=== PATIENT | female | born 1950 | race American Indian/Alaskan Native ===

== ENCOUNTER 2016-05-23 20:11 | Inpatient (IN) | payer MEDICAID ==
[~2016-05-23] VITALS: Ht 175.3 cm; Wt 68.0 kg
[~2016-05-23 20:11] MED LIST: ALBU0.63 NEB; ALBU1.25 NEB; ALBU8.5H3 INH; ALBUTEROL SULFATE NEB; ALPR0.254 PO; APIX5TAB PO; ASPI325T4 PO; BENZ100C PO; CARV12.52 PO; CETI10TA18 PO; DILT180C PO; DILT180C53 PO; DOCU-30 PO; FERR325T20 PO; FLUT1BLS INH; GABA100C8 PO; HYDR-3138 PO; HYDR-882 PO; IPRA3AMP NPPB; LEVO500T33 PO; LEVO750T26 PO; LIDO700A5 TD; LOPE2CAP PO; LORA-446 PO; LOSA25TA5 PO; MAGN250T8 PO; METH750T2 PO; METO50TA82 PO; MULT-750 PO; NICO1PAT5 TD; OMEP-110 PO; OXYC1TAB9 PO; PARO10TA24 PO; PRED5TAB PO; PROP50TA3 PO; THYROID MEDICATION PO; TRAM-28 PO; TRAM50TA2 PO; vit b
[2016-05-23] MEDS ORDERED: SODIUM CHLORIDE 0.9% 1,000ML IVBOLUS ONE (20:30)
[2016-05-23] MEDS ORDERED: DILTIAZEM 125 MG in DEXTROSE 5% 100 ML IV SCH (20:33)
[2016-05-23] MEDS ORDERED: DILTIAZEM 5 MG/ML, 5ML ONE (20:37)
[2016-05-23 20:45] LABS: HEMOGLOBIN 11.4 g/dL (11.7-16.4)
[2016-05-23 20:52] LABS: ASPARTATE AMINO TRANSFERASE 89 U/L (15-37); BLOOD UREA NITROGEN 10 mg/dL (7-18)
[2016-05-23 21:00] LABS: IS PT STATUS REG ER OR PRE ER? YES
[2016-05-23] MEDS ORDERED: ASPIRIN 81 MG TABLET CHEW PO ONE (21:00)
[2016-05-23] MEDS ORDERED: DILTIAZEM 5 MG/ML, 5ML IV ONE (21:00)
[2016-05-23] MEDS ORDERED: POTASSIUM CHLORIDE 20 MEQ TAB.ER.PRT ONE (21:27)
[2016-05-23] MEDS ORDERED: POTASSIUM CHLORIDE 40 MEQ in SODIUM CHLORIDE 0.9% 500 ML IV ONE (21:30)
[2016-05-23] MEDS ORDERED: POTASSIUM CHLORIDE 20 MEQ TAB.ER.PRT PO ONE (21:30)
[2016-05-23] MEDS ORDERED: PIPERACILLIN/TAZO/PMX 3.375GM 50 ML IVPB ONE (21:30)
[2016-05-23] MEDS ORDERED: PIPERACILLIN/TAZO/PMX 3.375GM 50 ML ONE (21:41)
[2016-05-23] MEDS ORDERED: HYDROcodone/APAP 7.5-325MG/15ML UDC ONE (22:47)
[2016-05-23] MEDS ORDERED: POTASSIUM CHLORIDE 20 MEQ, MVI ADULT 10 ML, FOLIC ACID 1 MG, MAGNESIUM SULFATE 1 GM in ... IV SCH (22:59)
[2016-05-23] MEDS ORDERED: ALUMINUM/MAG/SIMETHICONE 30 ML UDC PO PRN (23:00)
[2016-05-23] MEDS ORDERED: GUAIFENESIN/COD200MG-20MG/10ML LIQUID PO PRN (23:00)
[2016-05-23] MEDS ORDERED: DOCUSATE 100 MG CAPSULE PO PRN (23:00)
[2016-05-23] MEDS ORDERED: DIAZEPAM 5 MG/ML, 2ML IV ONE (23:00)
[2016-05-23 23:30] VITALS: BP 112/68
[2016-05-23] MEDS ORDERED: ALBUTEROL/IPRATROPIUM 2.5MG/0.5MG, 3 ML ONE (23:57)
[2016-05-24] MEDS: APIXABAN 5 MG TABLET PO SCH ×3 (00:33→20:59)
[2016-05-24] MEDS: GUAIFENESIN/DM 200-20MG, 10ML UDC PO PRN ×3 (00:33→20:58)
[2016-05-24] MEDS: PROPYLTHIOURACIL 50 MG TABLET PO SCH ×3 (00:33→20:59)
[2016-05-24 01:27] LABS: HEMOGLOBIN 11.7 g/dL (11.7-16.4)
[2016-05-24 01:40] LABS: ASPARTATE AMINO TRANSFERASE 133 U/L (15-37); BLOOD UREA NITROGEN 11 mg/dL (7-18)
[2016-05-24 01:52] LABS: DAU SCREEN DISCLAIMER
[2016-05-24] MEDS ORDERED: MAGNESIUM SULFATE PMX 2GM/50ML 50 ML IV ONE (02:30)
[2016-05-24] MEDS ORDERED: NS + 40MEQ KCL 1,000 ML IV ONE (02:30)
[2016-05-24] MEDS: methylPREDNISolone SOD SUCC 40 MG/ML IV SCH ×2 (03:05→16:04)
[2016-05-24] MEDS: PIPERACILLIN/TAZO/PMX 3.375GM 50 ML IV SCH ×4 (03:36→22:28)
[2016-05-24 05:14] VITALS: BP 142/89
[2016-05-24] MEDS: ALBUTEROL/IPRATROPIUM 2.5MG/0.5MG, 3 ML NPPB SCH ×5 (05:50→20:40)
[2016-05-24] MEDS: GABAPENTIN 100 MG CAPSULE PO SCH ×4 (06:00→20:59)
[2016-05-24 06:40] VITALS: BP 143/84
[2016-05-24] MEDS: OMEPRAZOLE 20 MG CAPSULE.DR PO SCH (08:34)
[2016-05-24] MEDS: CARVEDILOL 12.5 MG TABLET PO SCH ×2 (08:34→20:59)
[2016-05-24] MEDS: MULTIVITAMIN 1 TABLET PO SCH (08:34)
[2016-05-24] MEDS: CHLORDIAZEPOXIDE 25 MG CAPSULE PO SCH ×4 (08:38→20:59)
[2016-05-24] MEDS: FLUTICASONE/VILANTEROL 200-25MCG/INH INH SCH (09:00)
[2016-05-24 11:00] LABS: IS PT STATUS REG ER OR PRE ER? NO
[2016-05-24 14:32] VITALS: BP 142/80
[2016-05-24] MEDS: DIPHENHYDRAMINE 25 MG CAPSULE PO PRN (18:20)
[2016-05-24 18:55] VITALS: BP 151/99
[2016-05-24] MEDS: ACETAMINOPHEN 325 MG TABLET PO PRN (20:58)
[2016-05-24] MEDS ORDERED: DIPHENHYDRAMINE 25 MG CAPSULE PO ONE (22:30)
[2016-05-25 01:35] VITALS: BP 130/91
[2016-05-25] MEDS: PIPERACILLIN/TAZO/PMX 3.375GM 50 ML IV SCH ×4 (05:03→22:28)
[2016-05-25] MEDS: methylPREDNISolone SOD SUCC 40 MG/ML IV SCH ×3 (05:03→22:28)
[2016-05-25] MEDS: GABAPENTIN 100 MG CAPSULE PO SCH ×4 (05:03→20:01)
[2016-05-25 05:18] LABS: HEMOGLOBIN 11.8 g/dL (11.7-16.4)
[2016-05-25 05:36] LABS: ASPARTATE AMINO TRANSFERASE 71 U/L (15-37); BLOOD UREA NITROGEN 17 mg/dL (7-18)
[2016-05-25] MEDS: ALBUTEROL/IPRATROPIUM 2.5MG/0.5MG, 3 ML NPPB SCH ×4 (07:10→19:27)
[2016-05-25] MEDS: OMEPRAZOLE 20 MG CAPSULE.DR PO SCH (07:39)
[2016-05-25] MEDS: APIXABAN 5 MG TABLET PO SCH ×2 (07:39→20:01)
[2016-05-25] MEDS: FLUTICASONE/VILANTEROL 200-25MCG/INH INH SCH (07:39)
[2016-05-25] MEDS: DIPHENHYDRAMINE 25 MG CAPSULE PO PRN ×2 (07:40→16:20)
[2016-05-25] MEDS: PROPYLTHIOURACIL 50 MG TABLET PO SCH ×2 (07:40→20:01)
[2016-05-25] MEDS: MULTIVITAMIN 1 TABLET PO SCH (07:40)
[2016-05-25] MEDS: CARVEDILOL 12.5 MG TABLET PO SCH ×2 (07:40→20:01)
[2016-05-25] MEDS: GUAIFENESIN/DM 200-20MG, 10ML UDC PO PRN ×2 (07:42→16:21)
[2016-05-25] MEDS: ACETAMINOPHEN 325 MG TABLET PO PRN ×2 (07:42→16:20)
[2016-05-25 08:03] VITALS: BP 135/103
[2016-05-25 12:02] VITALS: BP 145/95
[2016-05-25] MEDS ORDERED: DILTIAZEM 125 MG in SODIUM CHLORIDE 0.9% 100 ML IV PRN (12:30)
[2016-05-25 13:39] VITALS: BP 152/97
[2016-05-25] MEDS ORDERED: DEXTROSE 4 GM TAB.CHEW PO PRN (18:30)
[2016-05-25] MEDS ORDERED: DEXTROSE 50%, 50ML SYRINGE IVPush PRN (18:30)
[2016-05-25] MEDS ORDERED: GLUCAGON 1 MG IM PRN (18:30)
[2016-05-25] MEDS ORDERED: LOPERAMIDE 2 MG CAPSULE PO ONE (18:30)
[2016-05-25] MEDS ORDERED: LOPERAMIDE 2 MG CAPSULE PO PRN (18:30)
[2016-05-25 19:08] VITALS: BP 130/83
[2016-05-25] MEDS: SODIUM CHLORIDE FLUSH 10ML SYR IVF SCH (20:00)
[2016-05-25] MEDS: CHLORDIAZEPOXIDE 25 MG CAPSULE PO SCH (20:01)
[2016-05-25] MEDS: OXYcodone 5 MG/5 ML ORAL.SOL UDC PO PRN (20:30)
[2016-05-25] MEDS: INSULIN ASPART 100 UNITS/ML, PEN SQ-INSULIN SCH (20:31)
[2016-05-26] MEDS: DIPHENHYDRAMINE 25 MG CAPSULE PO PRN ×3 (01:20→22:53)
[2016-05-26 01:23] VITALS: BP 121/79
[2016-05-26] MEDS: PIPERACILLIN/TAZO/PMX 3.375GM 50 ML IV SCH ×4 (04:22→22:53)
[2016-05-26 05:11] LABS: HEMOGLOBIN 11.7 g/dL (11.7-16.4)
[2016-05-26 05:17] VITALS: BP 126/86
[2016-05-26 05:17] LABS: BLOOD UREA NITROGEN 20 mg/dL (7-18)
[2016-05-26 05:20] LABS: ASPARTATE AMINO TRANSFERASE 49 U/L (15-37)
[2016-05-26] MEDS ORDERED: DILTIAZEM 125 MG in SODIUM CHLORIDE 0.9% 100 ML IV PRN ×5 (05:30→12:30)
[2016-05-26] MEDS: GUAIFENESIN/DM 200-20MG, 10ML UDC PO PRN ×2 (05:49→12:03)
[2016-05-26] MEDS: methylPREDNISolone SOD SUCC 40 MG/ML IV SCH ×4 (05:50→22:53)
[2016-05-26] MEDS: CHLORDIAZEPOXIDE 25 MG CAPSULE PO SCH ×3 (05:50→16:29)
[2016-05-26] MEDS: GABAPENTIN 100 MG CAPSULE PO SCH ×2 (06:14→11:33)
[2016-05-26 07:10] VITALS: BP 119/74
[2016-05-26] MEDS: ALBUTEROL/IPRATROPIUM 2.5MG/0.5MG, 3 ML NPPB SCH ×4 (07:18→19:10)
[2016-05-26] MEDS: FLUTICASONE/VILANTEROL 200-25MCG/INH INH SCH (08:02)
[2016-05-26] MEDS: SODIUM CHLORIDE FLUSH 10ML SYR IVF SCH ×2 (08:02→20:12)
[2016-05-26] MEDS: INSULIN ASPART 100 UNITS/ML, PEN SQ-INSULIN SCH ×4 (08:02→20:11)
[2016-05-26] MEDS: OMEPRAZOLE 20 MG CAPSULE.DR PO SCH (08:03)
[2016-05-26] MEDS: CARVEDILOL 12.5 MG TABLET PO SCH (08:03)
[2016-05-26] MEDS: APIXABAN 5 MG TABLET PO SCH ×2 (08:03→20:12)
[2016-05-26] MEDS: MULTIVITAMIN 1 TABLET PO SCH (08:03)
[2016-05-26] MEDS: FOLIC ACID 1 MG TABLET PO SCH (08:03)
[2016-05-26] MEDS: PROPYLTHIOURACIL 50 MG TABLET PO SCH ×2 (08:07→20:12)
[2016-05-26] MEDS: THIAMINE 200 MG in SODIUM CHLORIDE 0.9% 50 ML IV SCH (09:22)
[2016-05-26 15:15] VITALS: BP 121/81
[2016-05-26] MEDS: DILTIAZEM 60 MG TABLET PO SCH ×2 (16:29→23:04)
[2016-05-26] MEDS: OXYcodone 5 MG/5 ML ORAL.SOL UDC PO PRN ×2 (16:32→22:53)
[2016-05-26 19:58] VITALS: BP 116/79
[2016-05-27 01:30] VITALS: BP 114/77
[2016-05-27] MEDS: DILTIAZEM 60 MG TABLET PO SCH ×4 (05:22→20:44)
[2016-05-27] MEDS: PIPERACILLIN/TAZO/PMX 3.375GM 50 ML IV SCH ×2 (05:23→10:56)
[2016-05-27] MEDS ORDERED: DILTIAZEM 125 MG in SODIUM CHLORIDE 0.9% 100 ML IV PRN (05:30)
[2016-05-27 06:16] LABS: HEMOGLOBIN 12.2 g/dL (11.7-16.4)
[2016-05-27 06:34] LABS: BLOOD UREA NITROGEN 19 mg/dL (7-18)
[2016-05-27 06:41] VITALS: BP 119/75
[2016-05-27] MEDS: ALBUTEROL/IPRATROPIUM 2.5MG/0.5MG, 3 ML NPPB SCH ×4 (07:15→20:16)
[2016-05-27] MEDS ORDERED: REGADENOSON 0.4 MG/5 ML SYRINGE ONE (07:50)
[2016-05-27] MEDS: FLUTICASONE/VILANTEROL 200-25MCG/INH INH SCH (08:04)
[2016-05-27] MEDS: PROPYLTHIOURACIL 50 MG TABLET PO SCH ×2 (08:05→20:44)
[2016-05-27] MEDS: INSULIN ASPART 100 UNITS/ML, PEN SQ-INSULIN SCH ×4 (08:05→20:45)
[2016-05-27] MEDS: MULTIVITAMIN 1 TABLET PO SCH (08:05)
[2016-05-27] MEDS: methylPREDNISolone SOD SUCC 40 MG/ML IV SCH ×2 (08:05→20:43)
[2016-05-27] MEDS: FOLIC ACID 1 MG TABLET PO SCH (08:05)
[2016-05-27] MEDS: APIXABAN 5 MG TABLET PO SCH ×2 (08:05→20:44)
[2016-05-27] MEDS: SODIUM CHLORIDE FLUSH 10ML SYR IVF SCH ×2 (08:06→20:43)
[2016-05-27] MEDS: THIAMINE 200 MG in SODIUM CHLORIDE 0.9% 50 ML IV SCH (08:58)
[2016-05-27] MEDS: OXYcodone 5 MG/5 ML ORAL.SOL UDC PO PRN ×2 (12:28→20:45)
[2016-05-27 13:13] VITALS: BP 112/75
[2016-05-27] MEDS: CEFDINIR 300 MG CAPSULE PO SCH (14:16)
[2016-05-27] MEDS: DIPHENHYDRAMINE 25 MG CAPSULE PO PRN ×2 (16:22→22:29)
[2016-05-27 19:50] VITALS: BP 114/69
[2016-05-28 01:42] VITALS: BP 122/79
[2016-05-28 05:23] LABS: BLOOD UREA NITROGEN 20 mg/dL (7-18)
[2016-05-28 05:25] LABS: HEMOGLOBIN 12.2 g/dL (11.7-16.4)
[2016-05-28] MEDS: ALBUTEROL/IPRATROPIUM 2.5MG/0.5MG, 3 ML NPPB SCH ×4 (06:00→21:00)
[2016-05-28] MEDS: DILTIAZEM 60 MG TABLET PO SCH ×3 (06:00→16:52)
[2016-05-28] MEDS: INSULIN ASPART 100 UNITS/ML, PEN SQ-INSULIN SCH ×4 (07:00→21:58)
[2016-05-28 07:34] VITALS: BP 137/86
[2016-05-28] MEDS ORDERED: REGADENOSON 0.4 MG/5 ML SYRINGE ONE (07:47)
[2016-05-28] MEDS: OXYcodone 5 MG/5 ML ORAL.SOL UDC PO PRN ×3 (08:13→20:26)
[2016-05-28] MEDS: PROPYLTHIOURACIL 50 MG TABLET PO SCH ×2 (10:57→20:26)
[2016-05-28] MEDS: CEFDINIR 300 MG CAPSULE PO SCH (10:57)
[2016-05-28] MEDS: FOLIC ACID 1 MG TABLET PO SCH (10:57)
[2016-05-28] MEDS: APIXABAN 5 MG TABLET PO SCH ×2 (10:57→20:25)
[2016-05-28] MEDS: MULTIVITAMIN 1 TABLET PO SCH (10:57)
[2016-05-28] MEDS: methylPREDNISolone SOD SUCC 40 MG/ML IV SCH ×2 (10:58→20:24)
[2016-05-28] MEDS: THIAMINE 200 MG in SODIUM CHLORIDE 0.9% 50 ML IV SCH (10:58)
[2016-05-28] MEDS: SODIUM CHLORIDE FLUSH 10ML SYR IVF SCH ×2 (10:58→20:24)
[2016-05-28] MEDS: DIPHENHYDRAMINE 25 MG CAPSULE PO PRN ×2 (11:06→20:26)
[2016-05-28] MEDS: FLUTICASONE/VILANTEROL 200-25MCG/INH INH SCH (12:13)
[2016-05-28 13:12] VITALS: BP 132/79
[2016-05-28 16:46] VITALS: BP 133/82
[2016-05-28 18:56] VITALS: BP 131/72
[2016-05-28] MEDS: DILTIAZEM 90 MG TABLET PO SCH (20:25)
[2016-05-28] MEDS: GUAIFENESIN/DM 200-20MG, 10ML UDC PO PRN (22:29)
[2016-05-29 01:40] VITALS: BP 131/71
[2016-05-29] MEDS: DIPHENHYDRAMINE 25 MG CAPSULE PO PRN ×3 (03:48→23:01)
[2016-05-29] MEDS: DILTIAZEM 90 MG TABLET PO SCH (05:43)
[2016-05-29] MEDS: OXYcodone 5 MG/5 ML ORAL.SOL UDC PO PRN ×3 (05:44→18:03)
[2016-05-29 05:51] LABS: BLOOD UREA NITROGEN 19 mg/dL (7-18)
[2016-05-29 05:54] LABS: HEMOGLOBIN 11.9 g/dL (11.7-16.4)
[2016-05-29] MEDS: ALBUTEROL/IPRATROPIUM 2.5MG/0.5MG, 3 ML NPPB SCH ×4 (06:00→21:00)
[2016-05-29 07:28] VITALS: BP 158/89
[2016-05-29] MEDS: INSULIN ASPART 100 UNITS/ML, PEN SQ-INSULIN SCH ×4 (08:38→21:02)
[2016-05-29] MEDS: SODIUM CHLORIDE FLUSH 10ML SYR IVF SCH ×2 (08:40→21:00)
[2016-05-29] MEDS: FLUTICASONE/VILANTEROL 200-25MCG/INH INH SCH (08:40)
[2016-05-29] MEDS: methylPREDNISolone SOD SUCC 40 MG/ML IV SCH (08:40)
[2016-05-29] MEDS: MULTIVITAMIN 1 TABLET PO SCH (08:42)
[2016-05-29] MEDS: PROPYLTHIOURACIL 50 MG TABLET PO SCH ×2 (08:42→21:01)
[2016-05-29] MEDS: CEFDINIR 300 MG CAPSULE PO SCH ×2 (08:43→11:27)
[2016-05-29] MEDS: APIXABAN 5 MG TABLET PO SCH ×2 (08:43→21:00)
[2016-05-29] MEDS: FOLIC ACID 1 MG TABLET PO SCH (08:43)
[2016-05-29] MEDS: THIAMINE 100MG TABLET PO SCH (09:27)
[2016-05-29] MEDS: METOPROLOL TARTRATE 25 MG TABLET PO SCH ×2 (09:27→21:01)
[2016-05-29 12:41] VITALS: BP 117/81
[2016-05-29 18:41] VITALS: BP 143/84
[2016-05-29] MEDS: GUAIFENESIN/DM 200-20MG, 10ML UDC PO PRN (21:02)
[2016-05-30 01:13] VITALS: BP 146/98
[2016-05-30] MEDS: OXYcodone 5 MG/5 ML ORAL.SOL UDC PO PRN ×2 (03:37→11:43)
[2016-05-30 06:25] LABS: HEMOGLOBIN 13.2 g/dL (11.7-16.4)
[2016-05-30 06:30] LABS: BLOOD UREA NITROGEN 18 mg/dL (7-18)
[2016-05-30 06:35] VITALS: BP 134/90
[2016-05-30] MEDS: DIPHENHYDRAMINE 25 MG CAPSULE PO PRN (06:40)
[2016-05-30] MEDS: INSULIN ASPART 100 UNITS/ML, PEN SQ-INSULIN SCH ×2 (07:00→11:00)
[2016-05-30 07:14] LABS: DIFF TOTAL CELLS COUNTED 100 CELL DIFF
[2016-05-30 07:30] LABS: VERIFY COUNTS? YES
[2016-05-30] MEDS: ALBUTEROL/IPRATROPIUM 2.5MG/0.5MG, 3 ML NPPB SCH ×3 (07:47→14:20)
[2016-05-30] MEDS: SODIUM CHLORIDE FLUSH 10ML SYR IVF SCH (09:20)
[2016-05-30] MEDS: FLUTICASONE/VILANTEROL 200-25MCG/INH INH SCH (09:20)
[2016-05-30] MEDS: MULTIVITAMIN 1 TABLET PO SCH (09:21)
[2016-05-30] MEDS: PROPYLTHIOURACIL 50 MG TABLET PO SCH (09:21)
[2016-05-30] MEDS: THIAMINE 100MG TABLET PO SCH (09:21)
[2016-05-30] MEDS: CEFDINIR 300 MG CAPSULE PO SCH (09:21)
[2016-05-30] MEDS: FOLIC ACID 1 MG TABLET PO SCH (09:22)
[2016-05-30] MEDS: METOPROLOL TARTRATE 25 MG TABLET PO SCH (09:22)
[2016-05-30] MEDS: APIXABAN 5 MG TABLET PO SCH (09:22)
[2016-05-30] MEDS ORDERED: ALBU1.25 NEB (13:03)
[2016-05-30] MEDS ORDERED: ALPR0.254 PO (13:03)
[2016-05-30] MEDS ORDERED: IPRA3AMP NPPB (13:03)
[2016-05-30] MEDS ORDERED: APIX5TAB PO (13:03)
[2016-05-30] MEDS ORDERED: OXYC5SOL8 PO (13:03)
[2016-05-30] MEDS ORDERED: METO-99 PO (13:03)
[2016-05-30] MEDS ORDERED: THIA100T6 PO (13:03)
[2016-05-30] MEDS ORDERED: PROP50TA3 PO (13:03)
[2016-05-30] MEDS ORDERED: FLUT1BLS INH (13:03)
[2016-05-30] MEDS ORDERED: PRED10TA PO (13:03)
[2016-05-30] MEDS ORDERED: GUAI5SYR PO (13:03)
[2016-05-30] MEDS ORDERED: FOLI-17 PO (13:03)
[2016-05-30 13:22] VITALS: BP 119/79
[2016-05-30] MEDS ORDERED: METOPROLOL TARTRATE 100 MG TABLET PO SCH (21:00)
== END 2016-05-30 15:45 | disposition home or self-care (01) | DRG 896 ==
LOC: ED 22:09 → EDIP 22:20 → 4WST 22:31
PROVIDERS: ADMIT Internal Medicine; ATTEND Internal Medicine
DX: F10.239 Alcohol dependence with withdrawal, unspecified (principal); J18.9 Pneumonia, unspecified organism; J44.0 Chronic obstructive pulmonary disease with (acute) lower respiratory infection; J44.1 Chronic obstructive pulmonary disease with (acute) exacerbation; D68.69 Other thrombophilia; I48.2 Chronic atrial fibrillation; F10.229 Alcohol dependence with intoxication, unspecified; F14.23 Cocaine dependence with withdrawal; E87.6 Hypokalemia; I11.0 Hypertensive heart disease with heart failure; I50.9 Heart failure, unspecified; K52.9 Noninfective gastroenteritis and colitis, unspecified; E05.90 Thyrotoxicosis, unspecified without thyrotoxic crisis or storm; F17.210 Nicotine dependence, cigarettes, uncomplicated; K70.10 Alcoholic hepatitis without ascites; M79.1 Myalgia; Y90.8 Blood alcohol level of 240 mg/100 ml or more; Z79.01 Long term (current) use of anticoagulants; Z79.899 Other long term (current) drug therapy; Z91.19 Patient's noncompliance with other medical treatment and regimen
CPT/HCPCS: 36415; 71010; 78452; 80048; 80053; 80307; 82140; 82962; 83605; 83690; 83735; 84100; 84145; 84439; 84443; 84484; 85025; 85610; 85730; 87040; 87324; 93005; 94640; 96365; 96366; 96368; 96375; J1815; J2543; J2785; J3411; J7620; A9502; C9898; J2920; J3475; J3480; J7030; J7512; Q0163

== ENCOUNTER 2016-06-24 10:57 | Inpatient (IN) | payer OTHER, MEDICAID ==
[~2016-06-24] VITALS: Ht 175.3 cm; Wt 70.7 kg
[~2016-06-24 10:57] MED LIST changes: +FOLI-17 PO; +GUAI5SYR PO; +METO-99 PO; +OXYC5SOL8 PO; +PRED10TA PO; +THIA100T6 PO
[2016-06-24] MEDS ORDERED: SODIUM CHLORIDE FLUSH 10ML SYR IVF ONE (11:30)
[2016-06-24] MEDS ORDERED: ASPIRIN 81 MG TABLET CHEW PO ONE (11:30)
[2016-06-24] MEDS ORDERED: ASPIRIN 81 MG TABLET CHEW ONE (11:51)
[2016-06-24 12:22] LABS: ASPARTATE AMINO TRANSFERASE 23 U/L (15-37); BLOOD UREA NITROGEN 6 mg/dL (7-18)
[2016-06-24 12:23] LABS: IS PT STATUS REG ER OR PRE ER? YES
[2016-06-24] MEDS ORDERED: OXYcodone/APAP 10/325MG TABLET PO ONE (13:30)
[2016-06-24] MEDS ORDERED: POTASSIUM CHLORIDE 20 MEQ TAB.ER.PRT PO ONE ×2 (13:30→17:00)
[2016-06-24] MEDS ORDERED: OXYcodone/APAP 10/325MG TABLET ONE (13:48)
[2016-06-24] MEDS ORDERED: POTASSIUM CHLORIDE 20 MEQ TAB.ER.PRT ONE (13:48)
[2016-06-24] MEDS ORDERED: DILTIAZEM 5 MG/ML, 5ML ONE (15:32)
[2016-06-24] MEDS ORDERED: DILTIAZEM 125 MG in DEXTROSE 5% 100 ML IV SCH (15:49)
[2016-06-24] MEDS ORDERED: DILTIAZEM 5 MG/ML, 5ML IV ONE (16:00)
[2016-06-24] MEDS ORDERED: SODIUM CHLORIDE FLUSH 10ML SYR IVF PRN (16:30)
[2016-06-24] MEDS: SODIUM CHLORIDE 0.9% 1,000 ML IV SCH (17:20)
[2016-06-24] MEDS ORDERED: ONDANSETRON ODT 4 MG PO PRN (17:30)
[2016-06-24] MEDS ORDERED: HYDROcodone/APAP 5/325 TABLET PO PRN (17:30)
[2016-06-24] MEDS ORDERED: ALBUTEROL SULFATE 2.5 MG/3 ML NEB PRN ×2 (17:30→18:16)
[2016-06-24] MEDS ORDERED: LABETALOL 5MG/ML, 20ML IV PRN (17:30)
[2016-06-24] MEDS ORDERED: ONDANSETRON 2MG/ML, 2ML IVP PRN (17:30)
[2016-06-24] MEDS ORDERED: MAGNESIUM SULFATE PMX 2GM/50ML 50 ML IV ONE (17:30)
[2016-06-24] MEDS ORDERED: GUAIFENESIN/DM 100-10MG, 5ML UDC PO PRN (17:30)
[2016-06-24] MEDS ORDERED: POLYETHYLENE GLYCOL 17 GM PACKET PO PRN (17:30)
[2016-06-24] MEDS ORDERED: DILTIAZEM 125 MG in SODIUM CHLORIDE 0.9% 100 ML IV PRN ×2 (18:00→23:30)
[2016-06-24] MEDS ORDERED: ALBUTEROL/IPRATROPIUM 2.5MG/0.5MG, 3 ML ONE (18:31)
[2016-06-24 18:34] VITALS: BP 100/69
[2016-06-24 18:56] LABS: IS PT STATUS REG ER OR PRE ER? NO
[2016-06-24] MEDS ORDERED: METOPROLOL 1 MG/ML, 5ML IVPush PRN ×2 (19:00→19:48)
[2016-06-24 19:20] VITALS: BP 103/69
[2016-06-24 19:54] VITALS: BP 101/67
[2016-06-24] MEDS: METOPROLOL TARTRATE 100 MG TABLET PO SCH (19:56)
[2016-06-24] MEDS: OXYcodone 5 MG/5 ML ORAL.SOL UDC PO PRN (19:56)
[2016-06-24] MEDS: GABAPENTIN 100 MG CAPSULE PO SCH (19:57)
[2016-06-24] MEDS: APIXABAN 5 MG TABLET PO SCH (19:57)
[2016-06-24] MEDS: DOXYCYCLINE 100MG TABLET PO SCH (19:57)
[2016-06-24] MEDS: PROPYLTHIOURACIL 50 MG TABLET PO SCH (19:57)
[2016-06-24] MEDS ORDERED: METOPROLOL TARTRATE 100 MG TABLET PO SCH (21:00)
[2016-06-24] MEDS ORDERED: ALBUTEROL/IPRATROPIUM 2.5MG/0.5MG, 3 ML NPPB SCH (21:00)
[2016-06-24 23:47] LABS: IS PT STATUS REG ER OR PRE ER? NO
[2016-06-24 23:50] LABS: BLOOD UREA NITROGEN 8 mg/dL (7-18)
[2016-06-25 05:02] VITALS: BP 131/91
[2016-06-25 05:19] LABS: BLOOD UREA NITROGEN 6 mg/dL (7-18)
[2016-06-25 05:23] LABS: ASPARTATE AMINO TRANSFERASE 30 U/L (15-37)
[2016-06-25] MEDS: GABAPENTIN 100 MG CAPSULE PO SCH ×4 (05:50→20:28)
[2016-06-25] MEDS: SODIUM CHLORIDE 0.9% 1,000 ML IV SCH ×2 (05:50→20:34)
[2016-06-25 06:14] LABS: DAU SCREEN DISCLAIMER
[2016-06-25] MEDS: OXYcodone 5 MG/5 ML ORAL.SOL UDC PO PRN ×3 (06:18→20:26)
[2016-06-25] MEDS: GUAIFENESIN/DM 200-20MG, 10ML UDC PO PRN ×3 (06:30→20:27)
[2016-06-25] MEDS: SENNA/DOCUSATE TABLET PO SCH (09:00)
[2016-06-25 09:06] VITALS: BP 122/83
[2016-06-25] MEDS: FOLIC ACID 1 MG TABLET PO SCH (09:21)
[2016-06-25] MEDS: MULTIVITAMIN 1 TABLET PO SCH (09:21)
[2016-06-25] MEDS: PROPYLTHIOURACIL 50 MG TABLET PO SCH ×2 (09:21→20:29)
[2016-06-25] MEDS: DOXYCYCLINE 100MG TABLET PO SCH ×2 (09:21→20:29)
[2016-06-25] MEDS: THIAMINE 100MG TABLET PO SCH (09:21)
[2016-06-25] MEDS: METOPROLOL TARTRATE 100 MG TABLET PO SCH ×2 (09:21→20:28)
[2016-06-25] MEDS: APIXABAN 5 MG TABLET PO SCH ×2 (09:21→20:28)
[2016-06-25] MEDS: FLUTICASONE/VILANTEROL 200-25MCG/INH INH SCH (12:16)
[2016-06-25 13:06] VITALS: BP 112/79
[2016-06-25 19:09] VITALS: BP 103/68
[2016-06-26 04:00] VITALS: BP 105/71
[2016-06-26 06:02] LABS: BLOOD UREA NITROGEN 9 mg/dL (7-18)
[2016-06-26] MEDS: GABAPENTIN 100 MG CAPSULE PO SCH ×4 (06:33→21:42)
[2016-06-26] MEDS: OXYcodone 5 MG/5 ML ORAL.SOL UDC PO PRN ×3 (06:33→20:47)
[2016-06-26] MEDS: SODIUM CHLORIDE 0.9% 1,000 ML IV SCH (06:37)
[2016-06-26 08:27] VITALS: BP 101/67
[2016-06-26] MEDS ORDERED: POTASSIUM CHLORIDE 20 MEQ TAB.ER.PRT PO ONE (09:00)
[2016-06-26] MEDS: SENNA/DOCUSATE TABLET PO SCH (09:00)
[2016-06-26] MEDS: FLUTICASONE/VILANTEROL 200-25MCG/INH INH SCH (09:46)
[2016-06-26] MEDS: GUAIFENESIN/DM 200-20MG, 10ML UDC PO PRN ×2 (09:46→17:48)
[2016-06-26] MEDS: PROPYLTHIOURACIL 50 MG TABLET PO SCH ×2 (09:47→21:42)
[2016-06-26] MEDS: DOXYCYCLINE 100MG TABLET PO SCH ×2 (09:47→21:42)
[2016-06-26] MEDS: MULTIVITAMIN 1 TABLET PO SCH (09:47)
[2016-06-26] MEDS: FOLIC ACID 1 MG TABLET PO SCH (09:48)
[2016-06-26] MEDS: THIAMINE 100MG TABLET PO SCH (09:48)
[2016-06-26] MEDS: APIXABAN 5 MG TABLET PO SCH ×2 (09:48→21:43)
[2016-06-26] MEDS: METOPROLOL TARTRATE 100 MG TABLET PO SCH ×2 (09:48→21:00)
[2016-06-26] MEDS: CEFTRIAXONE PMX 1GM/50ML 50 ML IV SCH (11:31)
[2016-06-26 14:39] VITALS: BP 110/67
[2016-06-26] MEDS ORDERED: ERGOCALCIFEROL 50,000 UNIT CAPSULE PO SCH (17:00)
[2016-06-26 19:58] VITALS: BP_SYST 82; BP_SYST 89; BP_DIAS 51; BP_DIAS 57
[2016-06-26 21:31] VITALS: BP 104/56
[2016-06-27 00:36] VITALS: BP 101/70
[2016-06-27] MEDS: GUAIFENESIN/DM 200-20MG, 10ML UDC PO PRN ×2 (03:07→15:24)
[2016-06-27] MEDS: OXYcodone 5 MG/5 ML ORAL.SOL UDC PO PRN ×4 (03:07→21:20)
[2016-06-27 06:26] LABS: BLOOD UREA NITROGEN 9 mg/dL (7-18)
[2016-06-27] MEDS: GABAPENTIN 100 MG CAPSULE PO SCH ×4 (06:28→20:50)
[2016-06-27 06:55] VITALS: BP 132/82
[2016-06-27] MEDS: FLUTICASONE/VILANTEROL 200-25MCG/INH INH SCH (09:00)
[2016-06-27] MEDS: PROPYLTHIOURACIL 50 MG TABLET PO SCH ×2 (09:12→20:50)
[2016-06-27] MEDS: CEFTRIAXONE PMX 1GM/50ML 50 ML IV SCH (09:12)
[2016-06-27] MEDS: DOXYCYCLINE 100MG TABLET PO SCH ×2 (09:12→20:50)
[2016-06-27] MEDS: SENNA/DOCUSATE TABLET PO SCH (09:12)
[2016-06-27] MEDS: METOPROLOL TARTRATE 100 MG TABLET PO SCH ×2 (09:12→20:50)
[2016-06-27] MEDS: APIXABAN 5 MG TABLET PO SCH (09:12)
[2016-06-27] MEDS: MULTIVITAMIN 1 TABLET PO SCH (09:12)
[2016-06-27] MEDS: FOLIC ACID 1 MG TABLET PO SCH (09:13)
[2016-06-27] MEDS: THIAMINE 100MG TABLET PO SCH (09:13)
[2016-06-27 15:52] VITALS: BP 127/70
[2016-06-27] MEDS ORDERED: GUAIFENESIN ER 600 MG TABLET PO PRN (17:30)
[2016-06-27] MEDS: morphine SULFATE 10 MG/ML, 1ML IVPush PRN (19:30)
[2016-06-27] MEDS: ALBUTEROL/IPRATROPIUM 2.5MG/0.5MG, 3 ML NPPB PRN (19:40)
[2016-06-27 20:05] VITALS: BP 94/61
[2016-06-28 04:30] VITALS: BP 92/60
[2016-06-28] MEDS: OXYcodone 5 MG/5 ML ORAL.SOL UDC PO PRN ×3 (04:41→19:54)
[2016-06-28 05:09] LABS: BLOOD UREA NITROGEN 8 mg/dL (7-18)
[2016-06-28 05:13] LABS: ASPARTATE AMINO TRANSFERASE 9 U/L (15-37)
[2016-06-28] MEDS: GABAPENTIN 100 MG CAPSULE PO SCH ×4 (06:33→21:18)
[2016-06-28 07:11] VITALS: BP 100/67
[2016-06-28] MEDS: METOPROLOL TARTRATE 100 MG TABLET PO SCH ×2 (09:30→21:18)
[2016-06-28] MEDS: CEFTRIAXONE PMX 1GM/50ML 50 ML IV SCH (09:30)
[2016-06-28] MEDS ORDERED: ALBUTEROL/IPRATROPIUM 2.5MG/0.5MG, 3 ML IPPB PRN (09:30)
[2016-06-28] MEDS ORDERED: FLUTICASONE/VILANTEROL 200-25MCG/INH INH SCH (09:30)
[2016-06-28] MEDS: FOLIC ACID 1 MG TABLET PO SCH (09:30)
[2016-06-28] MEDS: MULTIVITAMIN 1 TABLET PO SCH (09:31)
[2016-06-28] MEDS: FLUTICASONE/VILANTEROL 200-25MCG/INH INH SCH (09:31)
[2016-06-28] MEDS: SENNA/DOCUSATE TABLET PO SCH (09:31)
[2016-06-28] MEDS: morphine SULFATE 10 MG/ML, 1ML IVPush PRN ×2 (09:31→17:27)
[2016-06-28] MEDS: THIAMINE 100MG TABLET PO SCH (09:31)
[2016-06-28] MEDS: DOXYCYCLINE 100MG TABLET PO SCH ×2 (09:31→21:18)
[2016-06-28] MEDS: PROPYLTHIOURACIL 50 MG TABLET PO SCH ×2 (09:33→21:19)
[2016-06-28] MEDS: predniSONE 50MG TABLET PO SCH (11:39)
[2016-06-28 13:31] LABS: CELLS COUNTED 1875; DILUTION 1; WBC SQUARES COUNTED 1
[2016-06-28 14:00] VITALS: BP 98/67
[2016-06-28] MEDS ORDERED: PHARMACOKINETIC MONITORING MC PRN (15:30)
[2016-06-28] MEDS ORDERED: PHARMACOKINETIC CONSULTATION MC ONE (15:30)
[2016-06-28] MEDS ORDERED: VANCOMYCIN PER PHARMACY MC PRN (15:30)
[2016-06-28] MEDS: VANCOMYCIN 1,300 MG in SODIUM CHLORIDE 0.9% 250 ML IV SCH (17:20)
[2016-06-28 20:06] VITALS: BP 102/63
[2016-06-28] MEDS: APIXABAN 5 MG TABLET PO SCH (21:18)
[2016-06-28] MEDS: DIPHENHYDRAMINE 25 MG CAPSULE PO PRN (22:24)
[2016-06-29 02:44] VITALS: BP 94/56
[2016-06-29] MEDS: OXYcodone 5 MG/5 ML ORAL.SOL UDC PO PRN ×2 (03:01→09:45)
[2016-06-29] MEDS: morphine SULFATE 10 MG/ML, 1ML IVPush PRN ×2 (05:40→21:29)
[2016-06-29] MEDS: VANCOMYCIN 1,300 MG in SODIUM CHLORIDE 0.9% 250 ML IV SCH (05:40)
[2016-06-29] MEDS: GABAPENTIN 100 MG CAPSULE PO SCH ×4 (05:40→21:03)
[2016-06-29 05:43] LABS: ASPARTATE AMINO TRANSFERASE 11 U/L (15-37); BLOOD UREA NITROGEN 12 mg/dL (7-18)
[2016-06-29 07:34] VITALS: BP 112/69
[2016-06-29] MEDS: THIAMINE 100MG TABLET PO SCH (09:45)
[2016-06-29] MEDS: predniSONE 50MG TABLET PO SCH (09:45)
[2016-06-29] MEDS: FOLIC ACID 1 MG TABLET PO SCH (09:45)
[2016-06-29] MEDS: CEFTRIAXONE PMX 1GM/50ML 50 ML IV SCH (09:45)
[2016-06-29] MEDS: APIXABAN 5 MG TABLET PO SCH ×2 (09:45→21:03)
[2016-06-29] MEDS: PROPYLTHIOURACIL 50 MG TABLET PO SCH ×2 (09:46→21:03)
[2016-06-29] MEDS: MULTIVITAMIN 1 TABLET PO SCH (09:46)
[2016-06-29] MEDS: METOPROLOL TARTRATE 100 MG TABLET PO SCH ×2 (09:46→21:03)
[2016-06-29] MEDS: DOXYCYCLINE 100MG TABLET PO SCH ×2 (09:46→21:03)
[2016-06-29] MEDS: SENNA/DOCUSATE TABLET PO SCH (09:46)
[2016-06-29] MEDS: FLUTICASONE/VILANTEROL 200-25MCG/INH INH SCH (09:46)
[2016-06-29] MEDS: ALBUTEROL/IPRATROPIUM 2.5MG/0.5MG, 3 ML NPPB PRN (10:00)
[2016-06-29 13:49] VITALS: BP 108/62
[2016-06-29] MEDS: OXYcodone IR 5MG TABLET PO PRN ×2 (14:09→18:36)
[2016-06-29 18:40] VITALS: BP 120/66
[2016-06-30 01:44] VITALS: BP 110/71
[2016-06-30] MEDS: OXYcodone IR 5MG TABLET PO PRN ×6 (02:29→23:51)
[2016-06-30] MEDS: GABAPENTIN 100 MG CAPSULE PO SCH ×4 (05:11→20:35)
[2016-06-30 05:53] LABS: ASPARTATE AMINO TRANSFERASE 11 U/L (15-37); BLOOD UREA NITROGEN 13 mg/dL (7-18)
[2016-06-30 07:46] VITALS: BP 131/75
[2016-06-30] MEDS: FLUTICASONE/VILANTEROL 200-25MCG/INH INH SCH (08:59)
[2016-06-30] MEDS: CEFTRIAXONE PMX 1GM/50ML 50 ML IV SCH (09:00)
[2016-06-30] MEDS: APIXABAN 5 MG TABLET PO SCH ×2 (09:00→20:35)
[2016-06-30] MEDS: predniSONE 50MG TABLET PO SCH (09:00)
[2016-06-30] MEDS: PROPYLTHIOURACIL 50 MG TABLET PO SCH ×2 (09:01→20:35)
[2016-06-30] MEDS: MULTIVITAMIN 1 TABLET PO SCH (09:01)
[2016-06-30] MEDS: FOLIC ACID 1 MG TABLET PO SCH (09:01)
[2016-06-30] MEDS: METOPROLOL TARTRATE 100 MG TABLET PO SCH ×2 (09:01→20:35)
[2016-06-30] MEDS: DOXYCYCLINE 100MG TABLET PO SCH ×2 (09:02→20:35)
[2016-06-30] MEDS: SENNA/DOCUSATE TABLET PO SCH (09:02)
[2016-06-30] MEDS: THIAMINE 100MG TABLET PO SCH (09:02)
[2016-06-30 12:33] VITALS: BP 112/72
[2016-06-30] MEDS: morphine SULFATE 10 MG/ML, 1ML IVPush PRN (13:20)
[2016-06-30 14:40] VITALS: BP 116/70
[2016-06-30 15:30] LABS: IS PT STATUS REG ER OR PRE ER? NO
[2016-06-30 18:53] VITALS: BP 93/63
[2016-06-30] MEDS: DIPHENHYDRAMINE 25 MG CAPSULE PO PRN (21:45)
[2016-07-01 00:55] VITALS: BP 107/66
[2016-07-01 05:21] LABS: IGG SUBCLASS 1 596 mg/dL (422-1292); IGG SUBCLASS 2 345 mg/dL (117-747); IGG SUBCLASS 3 231 mg/dL (41-129); IGG SUBCLASS 4 7 mg/dL (1-291); IMMUNOGLOBULIN G 1024 mg/dL (700-1600)
[2016-07-01 05:59] LABS: BLOOD UREA NITROGEN 14 mg/dL (7-18)
[2016-07-01] MEDS: OXYcodone IR 5MG TABLET PO PRN ×4 (06:15→20:19)
[2016-07-01] MEDS: GABAPENTIN 100 MG CAPSULE PO SCH ×4 (06:15→21:40)
[2016-07-01 07:24] VITALS: BP 126/76
[2016-07-01] MEDS: CEFTRIAXONE PMX 1GM/50ML 50 ML IV SCH (09:12)
[2016-07-01] MEDS: predniSONE 50MG TABLET PO SCH (09:13)
[2016-07-01] MEDS: FLUTICASONE/VILANTEROL 200-25MCG/INH INH SCH (09:13)
[2016-07-01] MEDS: APIXABAN 5 MG TABLET PO SCH ×2 (09:17→21:40)
[2016-07-01] MEDS: FOLIC ACID 1 MG TABLET PO SCH (09:17)
[2016-07-01] MEDS: DOXYCYCLINE 100MG TABLET PO SCH (09:18)
[2016-07-01] MEDS: THIAMINE 100MG TABLET PO SCH (09:18)
[2016-07-01] MEDS: MULTIVITAMIN 1 TABLET PO SCH (09:18)
[2016-07-01] MEDS: METOPROLOL TARTRATE 100 MG TABLET PO SCH ×2 (09:18→21:40)
[2016-07-01] MEDS: PROPYLTHIOURACIL 50 MG TABLET PO SCH ×2 (09:18→21:39)
[2016-07-01] MEDS: SENNA/DOCUSATE TABLET PO SCH (09:19)
[2016-07-01 13:15] VITALS: BP 109/67
[2016-07-01 19:20] VITALS: BP 109/73
[2016-07-01 21:37] VITALS: BP 111/65
[2016-07-02 00:31] VITALS: BP 111/70
[2016-07-02] MEDS: OXYcodone IR 5MG TABLET PO PRN ×3 (00:34→09:22)
[2016-07-02 04:57] LABS: BLOOD UREA NITROGEN 11 mg/dL (7-18)
[2016-07-02] MEDS: GABAPENTIN 100 MG CAPSULE PO SCH ×3 (05:26→16:44)
[2016-07-02 06:34] VITALS: BP 129/70
[2016-07-02] MEDS: PROPYLTHIOURACIL 50 MG TABLET PO SCH (09:16)
[2016-07-02] MEDS: FLUTICASONE/VILANTEROL 200-25MCG/INH INH SCH (09:16)
[2016-07-02] MEDS: MULTIVITAMIN 1 TABLET PO SCH (09:16)
[2016-07-02] MEDS: predniSONE 50MG TABLET PO SCH (09:16)
[2016-07-02] MEDS: APIXABAN 5 MG TABLET PO SCH (09:16)
[2016-07-02] MEDS: THIAMINE 100MG TABLET PO SCH (09:17)
[2016-07-02] MEDS: SENNA/DOCUSATE TABLET PO SCH (09:17)
[2016-07-02] MEDS: METOPROLOL TARTRATE 100 MG TABLET PO SCH (09:17)
[2016-07-02] MEDS: FOLIC ACID 1 MG TABLET PO SCH (09:17)
[2016-07-02 13:15] VITALS: BP 104/62
[2016-07-02] MEDS ORDERED: APIX5TAB PO (14:20)
[2016-07-02] MEDS ORDERED: PRED50TA PO (14:20)
[2016-07-02] MEDS ORDERED: ERGO500017 PO (14:20)
[2016-07-02 18:07] VITALS: BP 120/73
== END 2016-07-02 18:29 | DRG 308 ==
LOC: ED 13:43 → EDIP 16:02 → 5SO 18:04 → 4NOR 06-26 13:54
PROVIDERS: ADMIT Hospitalist; ATTEND Hospitalist
PROC: 0S9C3ZZ Drainage of Right Knee Joint, Percutaneous Approach (ICD-10-PCS; principal; 2016-06-28)
DX: I48.91 Unspecified atrial fibrillation (principal); E43 Unspecified severe protein-calorie malnutrition; J18.9 Pneumonia, unspecified organism; D68.69 Other thrombophilia; I50.32 Chronic diastolic (congestive) heart failure; J44.0 Chronic obstructive pulmonary disease with (acute) lower respiratory infection; J44.1 Chronic obstructive pulmonary disease with (acute) exacerbation; M17.11 Unilateral primary osteoarthritis, right knee; I48.92 Unspecified atrial flutter; K70.10 Alcoholic hepatitis without ascites; E87.6 Hypokalemia; E83.42 Hypomagnesemia; F17.210 Nicotine dependence, cigarettes, uncomplicated; E05.90 Thyrotoxicosis, unspecified without thyrotoxic crisis or storm; E87.5 Hyperkalemia; Z79.899 Other long term (current) drug therapy; Z79.01 Long term (current) use of anticoagulants; Z91.19 Patient's noncompliance with other medical treatment and regimen; F10.20 Alcohol dependence, uncomplicated; J45.909 Unspecified asthma, uncomplicated; K76.0 Fatty (change of) liver, not elsewhere classified; Z87.01 Personal history of pneumonia (recurrent); Z87.442 Personal history of urinary calculi; Z90.710 Acquired absence of both cervix and uterus; Z87.81 Personal history of (healed) traumatic fracture; E03.9 Hypothyroidism, unspecified; M11.261 Other chondrocalcinosis, right knee; Z68.23 Body mass index [BMI] 23.0-23.9, adult
CPT/HCPCS: 20611; 36415; 71010; 71020; 72072; 76700; 80048; 80053; 80061; 80307; 81003; 82040; 82306; 82728; 82784; 82787; 83735; 83970; 84100; 84145; 84439; 84443; 84484; 85025; 85610; 86480; 87040; 87070; 87205; 89051; 89060; 93005; 94640; 96365; 96366; 96376; J0696; J2405; J3370; J7620; J2270; J3475; J7030; J7050; J7512; Q0163

== ENCOUNTER 2016-10-18 13:06 | Emergency (ER) | payer MEDICAID ==
[~2016-10-18] VITALS: Ht 165.1 cm; Wt 73.0 kg
[~2016-10-18 13:06] MED LIST changes: -ALBU8.5H3 INH; +ALBU8.5H8 INH; +ASPI325T17 PO; -ASPI325T4 PO; +DOCU-131 PO; -DOCU-30 PO; +ERGO500017 PO; +FERR325T18 PO; -FERR325T20 PO; +GABA-826 PO; -GABA100C8 PO; -HYDR-3138 PO; +HYDR-3237 PO; -LEVO500T33 PO; +LEVO500T47 PO; +NICO1PAT16 TD; -NICO1PAT5 TD; -PARO10TA24 PO; +PARO10TA56 PO; +PRED50TA PO; -TRAM-28 PO; +TRAM-47 PO
[2016-10-18 13:08] VITALS: BP 145/76
[2016-10-18] MEDS ORDERED: DIAZEPAM 5 MG TABLET ONE (13:58)
[2016-10-18] MEDS ORDERED: HYDROcodone/APAP 5/325 TABLET ONE (13:58)
[2016-10-18] MEDS ORDERED: DIAZEPAM 5 MG TABLET PO ONE (14:00)
[2016-10-18] MEDS ORDERED: HYDROcodone/APAP 5/325 TABLET PO ONE (14:00)
== END 2016-10-18 15:02 | disposition home or self-care (01) ==
LOC: ED 14:51
DX: S39.012A Strain of muscle, fascia and tendon of lower back, initial encounter (principal); I50.9 Heart failure, unspecified; I11.0 Hypertensive heart disease with heart failure; E78.5 Hyperlipidemia, unspecified; I48.91 Unspecified atrial fibrillation; J44.9 Chronic obstructive pulmonary disease, unspecified; X58.XXXA Exposure to other specified factors, initial encounter; Y93.89 Activity, other specified; Y92.89 Other specified places as the place of occurrence of the external cause; Y99.8 Other external cause status
CPT/HCPCS: 99283

== ENCOUNTER 2017-02-07 20:39 | Emergency (ER) | payer MEDICAID, MEDICARE ==
[~2017-02-07] VITALS: Ht 170.2 cm; Wt 67.4 kg
[~2017-02-07 20:39] MED LIST changes: +NICO-487 TD; -NICO1PAT16 TD
[2017-02-07 20:57] VITALS: BP 142/75
== END 2017-02-07 22:25 | disposition home or self-care (01) ==
LOC: ED 22:23
DX: S71.112A Laceration without foreign body, left thigh, initial encounter (principal); F10.229 Alcohol dependence with intoxication, unspecified; J44.9 Chronic obstructive pulmonary disease, unspecified; E05.90 Thyrotoxicosis, unspecified without thyrotoxic crisis or storm; G89.29 Other chronic pain; W20.8XXA Other cause of strike by thrown, projected or falling object, initial encounter; Y93.89 Activity, other specified; Y92.89 Other specified places as the place of occurrence of the external cause; Y99.8 Other external cause status
CPT/HCPCS: 99283

== ENCOUNTER 2017-02-23 10:29 | Emergency (ER) | payer MEDICARE ==
[~2017-02-23] VITALS: Ht 167.6 cm; Wt 67.9 kg
[2017-02-23 10:31] VITALS: BP 158/79
[2017-02-23] MEDS ORDERED: DIAZEPAM 5 MG TABLET ONE (11:41)
[2017-02-23] MEDS ORDERED: DIAZEPAM 5 MG TABLET PO ONE (12:00)
== END 2017-02-23 13:52 | disposition home or self-care (01) ==
LOC: ED 13:10
DX: S39.012A Strain of muscle, fascia and tendon of lower back, initial encounter (principal); M51.36 Other intervertebral disc degeneration, lumbar region; I10 Essential (primary) hypertension; X58.XXXA Exposure to other specified factors, initial encounter; Y93.89 Activity, other specified; Y99.8 Other external cause status; Y92.89 Other specified places as the place of occurrence of the external cause
CPT/HCPCS: 72110; 99284

== ENCOUNTER 2017-11-08 00:03 | Emergency (ER) | payer MEDICARE ==
[~2017-11-08] VITALS: Ht 165.1 cm; Wt 70.1 kg
[~2017-11-08 00:03] MED LIST changes: -IPRA3AMP NPPB; +IPRA3AMP30 NPPB; -LOSA25TA5 PO; +LOSA25TA6 PO; +OXYC-432 PO; -OXYC1TAB9 PO; -THIA100T6 PO; +THIA100T67 PO
[2017-11-08 00:05] VITALS: BP 138/78
[2017-11-08] MEDS ORDERED: KETOROLAC 30 MG/1 ML IM ONE (00:30)
[2017-11-08] MEDS ORDERED: KETOROLAC 30 MG/1 ML ONE (00:38)
== END 2017-11-08 02:16 | disposition home or self-care (01) ==
LOC: ED 02:10
DX: S39.012A Strain of muscle, fascia and tendon of lower back, initial encounter (principal); I50.9 Heart failure, unspecified; I48.91 Unspecified atrial fibrillation; I11.0 Hypertensive heart disease with heart failure; J44.9 Chronic obstructive pulmonary disease, unspecified; Z90.710 Acquired absence of both cervix and uterus; F17.200 Nicotine dependence, unspecified, uncomplicated; W18.09XA Striking against other object with subsequent fall, initial encounter; Y93.01 Activity, walking, marching and hiking; Y92.098 Other place in other non-institutional residence as the place of occurrence of the external cause; Y99.8 Other external cause status
CPT/HCPCS: 72110; 96372; 99284; J1885

== ENCOUNTER 2018-01-09 06:41 | Emergency (ER) | payer MEDICARE ==
[~2018-01-09] VITALS: Ht 172.7 cm; Wt 69.8 kg
[~2018-01-09 06:41] MED LIST changes: +HYDR-3653 PO; -HYDR-882 PO
[2018-01-09] MEDS ORDERED: ACETAMINOPHEN 325 MG TABLET PO ONE (08:00)
[2018-01-09] MEDS ORDERED: ACETAMINOPHEN 325 MG TABLET ONE (08:00)
[2018-01-09 08:08] VITALS: BP 125/70
== END 2018-01-09 08:37 | disposition home or self-care (01) ==
LOC: ED 08:34
DX: J18.0 Bronchopneumonia, unspecified organism (principal); I48.91 Unspecified atrial fibrillation; J44.9 Chronic obstructive pulmonary disease, unspecified; I11.0 Hypertensive heart disease with heart failure; I50.9 Heart failure, unspecified; M54.9 Dorsalgia, unspecified; G89.29 Other chronic pain
CPT/HCPCS: 71046; 99284

== ENCOUNTER 2018-03-09 19:04 | Emergency (ER) | payer MEDICARE ==
[~2018-03-09] VITALS: Ht 172.7 cm; Wt 68.5 kg
[~2018-03-09 19:04] MED LIST changes: +LOSA25TA25 PO; -LOSA25TA6 PO
[2018-03-09 19:08] VITALS: BP 145/76
[2018-03-09] MEDS ORDERED: KETOROLAC 30 MG/1 ML ONE (19:50)
[2018-03-09] MEDS ORDERED: KETOROLAC 30 MG/1 ML IM ONE (20:00)
== END 2018-03-09 20:16 | disposition home or self-care (01) ==
LOC: ED 19:29
DX: M19.012 Primary osteoarthritis, left shoulder (principal); I11.0 Hypertensive heart disease with heart failure; I50.9 Heart failure, unspecified; J44.9 Chronic obstructive pulmonary disease, unspecified; E05.90 Thyrotoxicosis, unspecified without thyrotoxic crisis or storm; M48.00 Spinal stenosis, site unspecified; F17.200 Nicotine dependence, unspecified, uncomplicated; Z90.710 Acquired absence of both cervix and uterus
CPT/HCPCS: 73030; 96372; 99283; J1885

== ENCOUNTER 2019-02-28 05:01 | Emergency (ER) | payer MEDICARE, OTHER ==
[~2019-02-28] VITALS: Ht 172.7 cm; Wt 73.6 kg
[~2019-02-28 05:01] MED LIST changes: -DILT180C PO; +DILT180C76 PO
[2019-02-28 06:11] LABS: RAPID INFLUENZA A Negative (Negative); RAPID INFLUENZA B Negative (Negative)
--- NOTE | 2019-02-28 06:15 | NUR ---
PT TO RAD NOW
[2019-02-28 06:20] LABS: BASOPHILS % (AUTO) 0 % (0-1); EOSINOPHILS # (AUTO) 0.03 x10^3/uL (0-0.4); EOSINOPHILS % (AUTO) 0 % (1-7); LYMPHOCYTES # (AUTO) 0.66 x10^3/uL (1-3.4); LYMPHOCYTES % (AUTO) 9 % (22-44); MD NO; MEAN CORPUSCULAR HEMOGLOBIN 34.1 pg (27.0-34.8); MEAN CORPUSCULAR HGB CONC 34.3 g/dL (32.4-35.8); MEAN CORPUSCULAR VOLUME 99.3 fL (80-100); MEAN PLATELET VOLUME 9.7 fL (7.4-10.4); MONOCYTES # (AUTO) 0.42 x10^3/uL (0.2-0.8); MONOCYTES % (AUTO) 6 % (2-9); NEUTROPHILS # (AUTO) 6.54 x10^3/uL (1.8-6.8); NEUTROPHILS % (AUTO) 86 % (42-75); PLATELET COUNT 144 x10^3/uL (130-400); RED BLOOD COUNT 3.99 x10^6/uL (3.82-5.3); RED CELL DISTRIBUTION WIDTH 14.5 % (9.6-15.2)
[2019-02-28 06:28] LABS: ALBUMIN 3.7 g/dL (3.4-5.0); ANION GAP 8 mmol/L (5-15); CALCIUM 9.1 mg/dL (8.5-10.1); CHLORIDE 105 mmol/L (98-107)
[2019-02-28] MEDS ORDERED: ONDANSETRON ODT 4 MG PO ONE (06:30)
[2019-02-28 06:32] LABS: ALANINE AMINOTRANSFERASE 72 U/L (12-78); ALKALINE PHOSPHATASE 136 U/L (45-117); BILIRUBIN,TOTAL 1.6 mg/dL (0.2-1.0); CREATININE 0.49 mg/dL (0.55-1.02); TOTAL PROTEIN 8.2 g/dL (6.4-8.2)
[2019-02-28] MEDS ORDERED: ONDANSETRON ODT 4 MG ONE (06:39)
--- NOTE | 2019-02-28 06:48 | NUR ---
PT MEDICATED PER APR. UA OBTAINED AND WALKED TO LAB. PT DENIES FURTHER NEEDS AT THIS TIME.
[2019-02-28 07:07] LABS: MICROSCOPIC INDICATED
--- NOTE | 2019-02-28 07:13 | NUR ---
REPORT FROM CHACE GALE, PT RETURNED FROM CT. AWAITING CT AND LAB RESULTS. PT SLEEPING IN [facility] ON MONITOR, EQUAL CHEST RISE AND FALL
[2019-02-28 07:42] LABS: CULTURE INDICATED? YES
[2019-02-28] MEDS ORDERED: CEFTRIAXONE PMX 1GM/50ML 50 ML IVPB ONE (08:00)
[2019-02-28] MEDS ORDERED: SODIUM CHLORIDE FLUSH 10ML SYR IVF ONE (08:00)
[2019-02-28] MEDS ORDERED: MORPHINE SULFATE 4 MG/ML, 1ML IVPush PRN (08:00)
[2019-02-28] MEDS ORDERED: CEFTRIAXONE PMX 1GM/50ML 50 ML ONE (08:12)
[2019-02-28] MEDS ORDERED: MORPHINE SULFATE 4 MG/ML, 1ML ONE (08:13)
[2019-02-28 08:29] VITALS: BP 167/89
--- NOTE | 2019-02-28 08:31 | NUR ---
IV ESTABLISHED AND PT MEDICATED WITH MORPHINE, IV ABX STARTED. NO BC PER MD
--- NOTE | 2019-02-28 09:05 | NUR ---
report from thuy
--- NOTE | 2019-02-28 09:49 | NUR ---
Patient/Caregiver given discharge instructions and they have confirmed that they understand the instructions. Patient ambulatory with steady gait.
== END 2019-02-28 10:18 | disposition home or self-care (01) ==
LOC: ED 07:20
DX: J12.9 Viral pneumonia, unspecified (principal); N30.00 Acute cystitis without hematuria; J43.9 Emphysema, unspecified; I48.91 Unspecified atrial fibrillation; I11.0 Hypertensive heart disease with heart failure; I50.9 Heart failure, unspecified; M19.90 Unspecified osteoarthritis, unspecified site; Z90.710 Acquired absence of both cervix and uterus
CPT/HCPCS: 36415; 71046; 74176; 80053; 81001; 83690; 85025; 87077; 87086; 87186; 87400; 93005; 96365; 96375; 99284; J0696; J2270; Q0162

== ENCOUNTER 2019-03-12 21:23 | Inpatient (IN) | payer OTHER ==
[~2019-03-12] VITALS: Ht 172.7 cm; Wt 74.2 kg
--- NOTE | 2019-03-12 21:33 | NUR ---
Patient BIB [facility] c/o SOB, CP, congestion, N/V x3 days. Patient has a hx of asthma and states she usually uses an albuterol inhaler which helps when she gets SOB but ran out. Patient states she has also been nauseous for the last three days and the last time she vomited was yesterday am.
[2019-03-12] MEDS ORDERED: methylPREDNISolone SOD SUCC 125 MG/2 ML IVPush STA (22:45)
[2019-03-12] MEDS ORDERED: methylPREDNISolone SOD SUCC 125 MG/2 ML ONE (22:50)
[2019-03-12] MEDS ORDERED: KETOROLAC 30 MG/1 ML ONE (22:51)
[2019-03-12] MEDS ORDERED: ALBUTEROL/IPRATROPIUM 2.5MG/0.5MG, 3 ML NPPB ONE (23:00)
[2019-03-12] MEDS ORDERED: KETOROLAC 30 MG/1 ML IVPush ONE (23:00)
--- NOTE | 2019-03-12 23:27 | NUR ---
Medications admin per apr. Patient resting in [facility]. Lab in room.
[2019-03-12 23:37] LABS: BASOPHILS # (AUTO) 0.05 x10^3/uL (0-0.1); BASOPHILS % (AUTO) 2 % (0-1); EOSINOPHILS # (AUTO) 0.12 x10^3/uL (0-0.4); EOSINOPHILS % (AUTO) 4 % (1-7); LYMPHOCYTES # (AUTO) 1.13 x10^3/uL (1-3.4); LYMPHOCYTES % (AUTO) 37 % (22-44); MD NO; MEAN CORPUSCULAR HEMOGLOBIN 34.1 pg (27.0-34.8); MEAN CORPUSCULAR HGB CONC 34.1 g/dL (32.4-35.8); MEAN CORPUSCULAR VOLUME 99.9 fL (80-100); MEAN PLATELET VOLUME 9.5 fL (7.4-10.4); MONOCYTES # (AUTO) 0.28 x10^3/uL (0.2-0.8); MONOCYTES % (AUTO) 9 % (2-9); NEUTROPHILS % (AUTO) 49 % (42-75); PLATELET COUNT 150 x10^3/uL (130-400); RED BLOOD COUNT 3.65 x10^6/uL (3.82-5.3); RED CELL DISTRIBUTION WIDTH 14.4 % (9.6-15.2)
[2019-03-12] MEDS ORDERED: ALBUTEROL/IPRATROPIUM 2.5MG/0.5MG, 3 ML ONE (23:44)
[2019-03-12 23:49] LABS: ALANINE AMINOTRANSFERASE 71 U/L (12-78); ALBUMIN 3.3 g/dL (3.4-5.0); ANION GAP 12 mmol/L (5-15); CALCIUM 8.7 mg/dL (8.5-10.1); CHLORIDE 108 mmol/L (98-107); CREATININE 0.65 mg/dL (0.55-1.02)
[2019-03-12 23:54] LABS: ALKALINE PHOSPHATASE 147 U/L (45-117); BILIRUBIN,TOTAL 0.6 mg/dL (0.2-1.0); TOTAL PROTEIN 7.4 g/dL (6.4-8.2); TROPONIN I < 0.015 ng/mL (0.000-0.045)
[2019-03-13] VITALS (7 sets, daily range): BP systolic 137–194; BP diastolic 70–97
[2019-03-13] MEDS ORDERED: POTASSIUM CHLORIDE 20 MEQ TAB.ER.PRT ONE (00:19)
--- NOTE | 2019-03-13 00:25 | NUR ---
Patient states SOB is improved; feels tired. Resting comfortably in gurney.
[2019-03-13] MEDS ORDERED: POTASSIUM CHLORIDE 20 MEQ TAB.ER.PRT PO ONE ×2 (00:30→04:00)
[2019-03-13] MEDS ORDERED: CEFTRIAXONE PMX 1GM/50ML 50 ML ONE (00:59)
[2019-03-13] MEDS ORDERED: SODIUM CHLORIDE 0.9% 1,000ML IVBOLUS ONE (01:00)
[2019-03-13] MEDS ORDERED: AZITHROMYCIN 500 MG in SODIUM CHLORIDE 0.9% 250 ML IV ONE (01:00)
[2019-03-13] MEDS ORDERED: CEFTRIAXONE PMX 1GM/50ML 50 ML IV ONE (01:00)
--- NOTE | 2019-03-13 01:18 | NUR ---
MARIBEL RN: PT WITH [facility] PLUS INSURANCE. CARLOS CALLED, SPOKE TO [place] IN BED CONTROL/TRANSFER CENTER AND CARLOS DENIED PT TRANSFER. DISCUSSED WITH [employer] ZAMZAM FORMAN. BED REQUESTED FOR PT. ER ADMITTING NOTIFIED AND PSN FORM COMPLETED AND FAXED.
[2019-03-13] MEDS: methylPREDNISolone SOD SUCC 125 MG/2 ML IVPush SCH ×4 (04:33→23:17)
[2019-03-13] MEDS ORDERED: ALBUTEROL SULFATE 2.5 MG/3 ML NPPB PRN (05:00)
[2019-03-13] MEDS ORDERED: PROMETHAZINE 25 MG/ML, 1ML IM PRN (06:00)
[2019-03-13] MEDS ORDERED: ONDANSETRON 2MG/ML, 2ML IVPush PRN (06:00)
[2019-03-13] MEDS ORDERED: FUROSEMIDE 20 MG/2 ML IV ONE (06:00)
[2019-03-13] MEDS ORDERED: MAGNESIUM SULFATE PMX 2GM/50ML 50 ML IV ONE (08:00)
[2019-03-13] MEDS: ENOXAPARIN 40 MG/0.4 ML SQ SCH (08:10)
[2019-03-13 08:18] LABS: MEAN CORPUSCULAR HEMOGLOBIN 33.9 pg (27.0-34.8); MEAN CORPUSCULAR HGB CONC 33.3 g/dL (32.4-35.8); MEAN CORPUSCULAR VOLUME 101.8 fL (80-100); MEAN PLATELET VOLUME 10.3 fL (7.4-10.4); PLATELET COUNT 144 x10^3/uL (130-400); RED BLOOD COUNT 3.83 x10^6/uL (3.82-5.3)
[2019-03-13 08:27] LABS: ALANINE AMINOTRANSFERASE 76 U/L (12-78); ALBUMIN 3.5 g/dL (3.4-5.0); ANION GAP 13 mmol/L (5-15); CALCIUM 8.3 mg/dL (8.5-10.1); CHLORIDE 105 mmol/L (98-107); CREATININE 0.64 mg/dL (0.55-1.02)
[2019-03-13 08:29] LABS: ALKALINE PHOSPHATASE 160 U/L (45-117); BILIRUBIN,TOTAL 0.8 mg/dL (0.2-1.0); TOTAL PROTEIN 7.9 g/dL (6.4-8.2)
[2019-03-13 08:42] LABS: BASOPHILS # (AUTO) 0.01 x10^3/uL (0-0.1); BASOPHILS % (AUTO) 0 % (0-1); EOSINOPHILS % (AUTO) 0 % (1-7); LYMPHOCYTES # (AUTO) 0.26 x10^3/uL (1-3.4); LYMPHOCYTES % (AUTO) 13 % (22-44); MD MORPH REVIEW ONLY; MONOCYTES # (AUTO) 0.02 x10^3/uL (0.2-0.8); MONOCYTES % (AUTO) 1 % (2-9); NEUTROPHILS # (AUTO) 1.67 x10^3/uL (1.8-6.8); NEUTROPHILS % (AUTO) 86 % (42-75)
[2019-03-13 08:48] LABS: <PLATELET ESTIMATE> INCREASED; ANISOCYTOSIS 1+; LARGE PLATELETS 1+
[2019-03-13] MEDS: ACETAMINOPHEN 325 MG TABLET PO PRN ×3 (09:12→21:22)
[2019-03-13 10:32] LABS: MICROSCOPIC NOT IND
[2019-03-13 10:42] LABS: CULTURE INDICATED? NO
[2019-03-13 10:43] LABS: AMPHETAMINE SCREEN, URINE Negative (Negative); BARBITURATE SCREEN, URINE Negative (Negative); BENZODIAZEPINE SCREEN, URINE Negative (Negative); CANNABINOID SCREEN, URINE Negative (Negative); COCAINE SCREEN, URINE Negative (Negative); METHADONE SCREEN, URINE Negative (Negative); OPIATE SCREEN, URINE Negative (Negative)
[2019-03-13] MEDS ORDERED: OMNIPAQUE 350 MG/ML, 100ML BOTTLE ONE (11:28)
[2019-03-13 12:09] LABS: CLOSTRIDIUM DIFFICILE ANTIGEN POSITIVE; CLOSTRIDIUM DIFFICILE TOXIN NEGATIVE (Negative)
[2019-03-13 14:38] LABS: FREE T4 (FREE THYROXINE) 1.01 ng/dL (0.76-1.46)
[2019-03-13] MEDS: morphine SULFATE 10 MG/ML, 1ML IVPush PRN ×2 (17:16→21:23)
[2019-03-13] MEDS ORDERED: NITROGLYCERIN 0.4 MG BOTTLE (25 TABS) SL PRN (20:00)
[2019-03-14] VITALS (9 sets, daily range): BP systolic 142–183; BP diastolic 75–107
[2019-03-14] MEDS ORDERED: hydrALAzine 20 MG/ML, 1ML IV ONE (01:30)
[2019-03-14] MEDS: ACETAMINOPHEN 325 MG TABLET PO PRN ×3 (04:09→17:01)
[2019-03-14] MEDS: methylPREDNISolone SOD SUCC 125 MG/2 ML IVPush SCH ×3 (05:14→17:01)
[2019-03-14] MEDS: morphine SULFATE 10 MG/ML, 1ML IVPush PRN (07:16)
[2019-03-14] MEDS: ENOXAPARIN 40 MG/0.4 ML SQ SCH (07:42)
[2019-03-14] MEDS: THIAMINE 100MG TABLET PO SCH (09:00)
[2019-03-14 09:38] LABS: MEAN CORPUSCULAR HEMOGLOBIN 34.3 pg (27.0-34.8); MEAN CORPUSCULAR VOLUME 101.1 fL (80-100); PLATELET COUNT 147 x10^3/uL (130-400); RED CELL DISTRIBUTION WIDTH 14.7 % (9.6-15.2)
[2019-03-14 09:40] LABS: ALANINE AMINOTRANSFERASE 63 U/L (12-78); ALBUMIN 3.6 g/dL (3.4-5.0); ANION GAP 10 mmol/L (5-15); CALCIUM 8.5 mg/dL (8.5-10.1); CHLORIDE 102 mmol/L (98-107); CREATININE 0.58 mg/dL (0.55-1.02)
[2019-03-14 09:42] LABS: ALKALINE PHOSPHATASE 128 U/L (45-117); BILIRUBIN,TOTAL 1.8 mg/dL (0.2-1.0); TOTAL PROTEIN 8.2 g/dL (6.4-8.2)
[2019-03-14 10:11] LABS: MD MORPH REVIEW ONLY
[2019-03-14 10:12] LABS: BASOPHILS % (AUTO) 0 % (0-1); EOSINOPHILS % (AUTO) 0 % (1-7); LYMPHOCYTES # (AUTO) 0.17 x10^3/uL (1-3.4); LYMPHOCYTES % (AUTO) 3 % (22-44); MONOCYTES # (AUTO) 0.14 x10^3/uL (0.2-0.8); MONOCYTES % (AUTO) 3 % (2-9); NEUTROPHILS % (AUTO) 94 % (42-75)
[2019-03-14 10:13] LABS: TARGET CELLS 1+
[2019-03-14 10:14] LABS: <PLATELET ESTIMATE> ADEQUATE; <PLT MORPHOLOGY> NORMAL PLT MORPH; ANISOCYTOSIS 1+
[2019-03-14] MEDS: PROPYLTHIOURACIL 50 MG TABLET PO SCH ×2 (10:35→20:04)
[2019-03-14] MEDS: CEFTRIAXONE PMX 1GM/50ML 50 ML IV SCH (10:35)
[2019-03-14] MEDS: APIXABAN 5 MG TABLET PO SCH ×2 (10:35→20:04)
[2019-03-14] MEDS: DOXYCYCLINE 100 MG in DEXTROSE 5% 250 ML IV SCH ×2 (10:36→23:52)
[2019-03-14] MEDS ORDERED: POTASSIUM CHLORIDE 20 MEQ PACKET PO ONE (12:00)
[2019-03-15 01:00] VITALS: BP 144/83
[2019-03-15] MEDS: methylPREDNISolone SOD SUCC 125 MG/2 ML IVPush SCH ×3 (01:31→20:15)
[2019-03-15 08:43] VITALS: BP 156/89
[2019-03-15] MEDS: CEFTRIAXONE PMX 1GM/50ML 50 ML IV SCH (10:03)
[2019-03-15] MEDS: APIXABAN 5 MG TABLET PO SCH ×2 (10:04→20:16)
[2019-03-15] MEDS: PROPYLTHIOURACIL 50 MG TABLET PO SCH ×2 (10:04→20:15)
[2019-03-15] MEDS: THIAMINE 100MG TABLET PO SCH (10:04)
[2019-03-15] MEDS: DOXYCYCLINE 100 MG in DEXTROSE 5% 250 ML IV SCH ×2 (11:53→23:32)
[2019-03-15 13:20] VITALS: BP 175/106
[2019-03-15 14:11] VITALS: BP 153/90
[2019-03-15] MEDS: ENALAPRIL 5MG TABLET PO SCH (14:13)
[2019-03-15 19:32] VITALS: BP 157/76
[2019-03-16 00:46] VITALS: BP 160/87
[2019-03-16 08:07] VITALS: BP 147/87
[2019-03-16] MEDS: THIAMINE 100MG TABLET PO SCH (10:10)
[2019-03-16] MEDS: methylPREDNISolone SOD SUCC 125 MG/2 ML IVPush SCH (10:10)
[2019-03-16] MEDS: PROPYLTHIOURACIL 50 MG TABLET PO SCH (10:10)
[2019-03-16] MEDS: ENALAPRIL 5MG TABLET PO SCH (10:10)
[2019-03-16] MEDS: APIXABAN 5 MG TABLET PO SCH (10:10)
[2019-03-16] MEDS: CEFTRIAXONE PMX 1GM/50ML 50 ML IV SCH (10:19)
[2019-03-16] MEDS: DOXYCYCLINE 100 MG in DEXTROSE 5% 250 ML IV SCH (11:33)
[2019-03-16 13:16] VITALS: BP 172/87
[2019-03-16] MEDS ORDERED: FLU VACC QS2019-20 36MOS UP/PF 0.5 ML IM-VACC ONE (14:30)
[2019-03-16] MEDS ORDERED: PROP50TA3 PO (14:53)
[2019-03-16] MEDS ORDERED: DOXY100T PO (14:53)
[2019-03-16] MEDS ORDERED: PRED20TA PO (14:53)
[2019-03-16] MEDS ORDERED: APIX5TAB PO (14:53)
[2019-03-16] MEDS ORDERED: CEFD300C37 PO (14:53)
[2019-03-16] MEDS ORDERED: ENAL5TAB PO (14:53)
[2019-03-16] MEDS ORDERED: ENALAPRIL 5MG TABLET PO SCH (15:00)
== END 2019-03-16 16:20 | disposition home health service (06) | DRG 177 ==
LOC: ED 03-13 00:56 → EDIP 03-13 00:58 → 4WST 03-13 02:45
PROVIDERS: ADMIT Family Medicine; ATTEND Internal Medicine
DX: J15.6 Pneumonia due to other Gram-negative bacteria (principal); J96.01 Acute respiratory failure with hypoxia; E87.2 Acidosis; D68.59 Other primary thrombophilia; I50.30 Unspecified diastolic (congestive) heart failure; J18.9 Pneumonia, unspecified organism; D70.9 Neutropenia, unspecified; K80.20 Calculus of gallbladder without cholecystitis without obstruction; E05.90 Thyrotoxicosis, unspecified without thyrotoxic crisis or storm; E87.6 Hypokalemia; F09 Unspecified mental disorder due to known physiological condition; G89.29 Other chronic pain; I07.1 Rheumatic tricuspid insufficiency; I11.0 Hypertensive heart disease with heart failure; I27.20 Pulmonary hypertension, unspecified; I35.1 Nonrheumatic aortic (valve) insufficiency; I48.0 Paroxysmal atrial fibrillation; J43.9 Emphysema, unspecified; M19.90 Unspecified osteoarthritis, unspecified site; M48.00 Spinal stenosis, site unspecified; R73.9 Hyperglycemia, unspecified; Z23 Encounter for immunization; Z59.0 Homelessness; Z82.5 Family history of asthma and other chronic lower respiratory diseases; Z87.891 Personal history of nicotine dependence; Z90.710 Acquired absence of both cervix and uterus; Z79.899 Other long term (current) drug therapy
CPT/HCPCS: 36415; 71046; 71275; 74176; 80053; 80307; 81003; 82607; 83036; 83605; 83690; 83735; 83880; 84145; 84439; 84443; 84481; 84484; 85025; 87040; 87324; 87493; 90686; 93005; 93306; 94640; 96374; 96375; G0378; J0456; J0696; J1650; J1885; J7060; J7613; J7620; Q9967; 92523-GN; J0360; J1940; J2270; J2930; J3475; J7030; J7050

== ENCOUNTER 2019-06-03 16:30 | Inpatient (IN) | payer OTHER ==
[~2019-06-03] VITALS: Ht 172.7 cm; Wt 68.5 kg
[~2019-06-03 16:30] MED LIST changes: +ACET325T26 PO; +BUTA-177 PO; +CEFD300C37 PO; +DOXY100T PO; +ENAL5TAB PO; +LIDO700A20 TD; +LISI-167 PO; +PRED20TA PO
[2019-06-03] MEDS ORDERED: LORazepam 2 MG/ML, 1ML ONE (16:35)
[2019-06-03] MEDS ORDERED: DILTIAZEM 125 MG in SODIUM CHLORIDE 0.9% 100 ML IV SCH ×2 (16:40→19:30)
[2019-06-03] MEDS ORDERED: DILTIAZEM 5 MG/ML, 5ML ONE (16:58)
[2019-06-03] MEDS ORDERED: LORazepam 2 MG/ML, 1ML IVPush ONE (17:00)
[2019-06-03] MEDS ORDERED: DILTIAZEM 5 MG/ML, 5ML IV ONE (17:00)
[2019-06-03] MEDS ORDERED: SODIUM CHLORIDE FLUSH 10ML SYR IVF ONE (17:00)
--- NOTE | 2019-06-03 17:02 | NUR ---
MEMO DID EKG & ASSISTED W/ JAQUIID SWAB
--- NOTE | 2019-06-03 17:06 | NUR ---
HR 105 AFTER CARIZEM BOLUS GIVEN. PT BREATHING SLOWED DOWN AND LESS ANXIOUS. PT'S HANDS STILL HURT WITH CARPAL PEDAL SPASMS NOTED LEFT HAND
[2019-06-03 17:08] LABS: ALANINE AMINOTRANSFERASE 56 U/L (12-78); ALBUMIN 3.9 g/dL (3.4-5.0); ANION GAP 19 mmol/L (5-15); CALCIUM 7.8 mg/dL (8.5-10.1); CHLORIDE 97 mmol/L (98-107); CREATININE 0.76 mg/dL (0.55-1.02)
[2019-06-03 17:13] LABS: ALKALINE PHOSPHATASE 120 U/L (45-117); BILIRUBIN,TOTAL 2.2 mg/dL (0.2-1.0); T4 (THYROXINE) 11.1 mcg/dL (4.8-13.9); TOTAL PROTEIN 7.4 g/dL (6.4-8.2); TROPONIN I < 0.015 ng/mL (0.000-0.045)
[2019-06-03] MEDS ORDERED: NS + 40MEQ KCL 1,000 ML IV ONE (17:17)
[2019-06-03 17:26] LABS: MEAN CORPUSCULAR HEMOGLOBIN 34.4 pg (27.0-34.8); MEAN CORPUSCULAR HGB CONC 34.1 g/dL (32.4-35.8); MEAN CORPUSCULAR VOLUME 100.8 fL (80-100); RED BLOOD COUNT 3.83 x10^6/uL (3.82-5.3); RED CELL DISTRIBUTION WIDTH 16.2 % (9.6-15.2)
[2019-06-03] MEDS ORDERED: POTASSIUM CHLORIDE 20 MEQ TAB.ER.PRT ONE (17:26)
[2019-06-03] MEDS ORDERED: POTASSIUM CHLORIDE 20 MEQ TAB.ER.PRT PO ONE (17:30)
--- NOTE | 2019-06-03 17:32 | NUR ---
REPEAT EKG SHOWS NSR AT THIS TIME. CARDIZEM DRIP HELD FOR NOW. CONTINUES TO STRUGGLE WITH PAIN IN LEGS AND ARMS. MEDICATED FOR HYPOKALEMIA NOTED ON MAR
[2019-06-03 17:44] LABS: BASOPHILS # (AUTO) 0.02 x10^3/uL (0-0.1); BASOPHILS % (AUTO) 1 % (0-1); EOSINOPHILS % (AUTO) 0 % (1-7); LYMPHOCYTES # (AUTO) 0.52 x10^3/uL (1-3.4); LYMPHOCYTES % (AUTO) 15 % (22-44); MD MORPH REVIEW ONLY; MEAN PLATELET VOLUME 9.1 fL (7.4-10.4); MONOCYTES # (AUTO) 0.35 x10^3/uL (0.2-0.8); MONOCYTES % (AUTO) 10 % (2-9); NEUTROPHILS # (AUTO) 2.59 x10^3/uL (1.8-6.8); NEUTROPHILS % (AUTO) 74 % (42-75)
[2019-06-03 17:46] LABS: PLATELET COUNT 90 x10^3/uL (130-400)
[2019-06-03 17:47] LABS: <PLATELET ESTIMATE> DECREASED; ANISOCYTOSIS 1+; GIANT PLATELETS 1+; LARGE PLATELETS 1+
[2019-06-03] MEDS ORDERED: MORPHINE SULFATE 4 MG/ML, 1ML ONE (18:10)
[2019-06-03] MEDS ORDERED: ONDANSETRON 2MG/ML, 2ML ONE ×2 (18:10→22:55)
--- NOTE | 2019-06-03 18:25 | NUR ---
MEDICATED FOR PAIN EXTREMITIES. AWARE OF INTENTION TO ADMIT
[2019-06-03] MEDS ORDERED: ONDANSETRON 2MG/ML, 2ML IVPush ONE (18:30)
[2019-06-03] MEDS ORDERED: MORPHINE SULFATE 4 MG/ML, 1ML IVPush PRN (18:30)
--- NOTE | 2019-06-03 18:55 | NUR ---
REPORT TO JACI GALE
[2019-06-03] MEDS ORDERED: SODIUM CHLORIDE FLUSH 10ML SYR IVF PRN (19:00)
[2019-06-03] MEDS ORDERED: ONDANSETRON 2MG/ML, 2ML IVPush PRN (19:30)
--- NOTE | 2019-06-03 19:38 | NUR ---
TP RN: PT. WITH DETENTION + INSURANCE. SPOKE WITH GIDEON AT [facility]; PT. DECLINED BY BALJINDER MENESES CM.
[2019-06-03] MEDS ORDERED: ALBUTEROL HFA 90 MCG/SPRAY INH PRN (20:00)
[2019-06-03] MEDS ORDERED: AZITHROMYCIN 500 MG in SODIUM CHLORIDE 0.9% 250 ML IV SCH (20:00)
[2019-06-03 20:11] LABS: MICROSCOPIC INDICATED
[2019-06-03] MEDS: PROPYLTHIOURACIL 50 MG TABLET PO SCH (21:00)
--- NOTE | 2019-06-03 22:00 | NUR ---
Pt provided with food.
[2019-06-03] MEDS ORDERED: APIXABAN 5 MG TABLET ONE (22:11)
[2019-06-03] MEDS: APIXABAN 5 MG TABLET PO SCH (22:13)
--- NOTE | 2019-06-03 22:16 | NUR ---
Pt took PTU from home medications.
--- NOTE | 2019-06-03 23:03 | NUR ---
Pt placed on hospital bed, resting comfortably.
[2019-06-04] MEDS ORDERED: VENTOLIN INH PRN (01:00)
[2019-06-04 04:56] LABS: MEAN CORPUSCULAR HEMOGLOBIN 34.4 pg (27.0-34.8); MEAN CORPUSCULAR HGB CONC 34.1 g/dL (32.4-35.8); MEAN CORPUSCULAR VOLUME 101.1 fL (80-100); MEAN PLATELET VOLUME 9.4 fL (7.4-10.4); PLATELET COUNT 57 x10^3/uL (130-400); RED BLOOD COUNT 3.51 x10^6/uL (3.82-5.3); RED CELL DISTRIBUTION WIDTH 16.2 % (9.6-15.2)
[2019-06-04 05:04] LABS: ANION GAP 10 mmol/L (5-15); CALCIUM 7.5 mg/dL (8.5-10.1); CHLORIDE 102 mmol/L (98-107)
[2019-06-04 05:06] LABS: CREATININE 0.55 mg/dL (0.55-1.02)
[2019-06-04 05:42] LABS: <PLATELET ESTIMATE> DECREASED; BASOPHILS # (AUTO) 0.04 x10^3/uL (0-0.1); BASOPHILS % (AUTO) 1 % (0-1); EOSINOPHILS # (AUTO) 0.04 x10^3/uL (0-0.4); EOSINOPHILS % (AUTO) 1 % (1-7); LYMPHOCYTES # (AUTO) 0.89 x10^3/uL (1-3.4); LYMPHOCYTES % (AUTO) 25 % (22-44); MD MORPH REVIEW ONLY; MONOCYTES # (AUTO) 0.49 x10^3/uL (0.2-0.8); MONOCYTES % (AUTO) 14 % (2-9); NEUTROPHILS % (AUTO) 59 % (42-75)
[2019-06-04 05:43] LABS: GIANT PLATELETS 1+; LARGE PLATELETS 1+
[2019-06-04 05:57] LABS: ANISOCYTOSIS 1+
[2019-06-04 06:19] LABS: FREE T4 (FREE THYROXINE) 1.05 ng/dL (0.76-1.46)
--- NOTE | 2019-06-04 06:53 | NUR ---
I AM ASSUMING CARE OF THIS PT FROM DANII (RN) AT THIS TIME. SBAR REPORT WAS EXCHANGED AT THE BEDSIDE.
--- NOTE | 2019-06-04 08:16 | NUR ---
MEALTYRAY GIVEN AND APPRECIATED. PT SITTING AT THE BEDSIDE HAVING BREAKFST. VS ARE STABLE AND WDL. I WILL CONTINUE TO MONITOR AND TREAT ORDERED, WELL PRN.
[2019-06-04] MEDS ORDERED: ONDANSETRON 2MG/ML, 2ML ONE (08:28)
[2019-06-04] MEDS ORDERED: MORPHINE SULFATE 4 MG/ML, 1ML ONE (08:28)
[2019-06-04] MEDS: FOLIC ACID 1 MG TABLET PO SCH (08:58)
[2019-06-04] MEDS: PROPYLTHIOURACIL 50 MG TABLET PO SCH ×2 (08:58→21:13)
[2019-06-04] MEDS: DILTIAZEM CD 180 MG CAP.ER.24H PO SCH (08:58)
[2019-06-04] MEDS: APIXABAN 5 MG TABLET PO SCH ×2 (08:58→21:13)
[2019-06-04] MEDS ORDERED: LISINOPRIL 10 MG TABLET PO SCH (09:00)
[2019-06-04] MEDS ORDERED: BREO ELLIPTA INH SCH (09:00)
--- NOTE | 2019-06-04 10:01 | NUR ---
PT UP TO BEDSIDE COMMODE. ASSIST OF ONE.
[2019-06-04] MEDS: THIAMINE 100MG TABLET PO SCH (10:16)
--- NOTE | 2019-06-04 11:31 | NUR ---
pt resting on a hospital bed w no acute changes noted at this time. vs are stable, and wdl. we are awaiting a room assignment for admission.
--- NOTE | 2019-06-04 12:56 | NUR ---
verbal sbar exchanged ebony spicer (matt) on the floor for admission. we will begin to prepare for transport at this time.
[2019-06-04 14:35] VITALS: BP 129/90
[2019-06-04] MEDS ORDERED: OXYcodone IR 5MG TABLET PO ONE (18:00)
[2019-06-04] MEDS ORDERED: MAGNESIUM SULFATE PMX 2GM/50ML 50 ML IV ONE (18:00)
[2019-06-04] MEDS ORDERED: POTASSIUM CHLORIDE 40 MEQ in SODIUM CHLORIDE 0.9% 500 ML IV ONE (18:00)
[2019-06-04] MEDS: POTASSIUM CHLORIDE 20 MEQ TAB.ER.PRT PO SCH (18:11)
[2019-06-04 20:36] VITALS: BP 102/70
[2019-06-05 01:32] VITALS: BP 138/90
[2019-06-05 05:57] LABS: ALBUMIN 3.2 g/dL (3.4-5.0); ANION GAP 8 mmol/L (5-15); CALCIUM 7.1 mg/dL (8.5-10.1); CHLORIDE 109 mmol/L (98-107)
[2019-06-05 06:00] LABS: ALANINE AMINOTRANSFERASE 36 U/L (12-78); ALKALINE PHOSPHATASE 79 U/L (45-117); BILIRUBIN,TOTAL 1.5 mg/dL (0.2-1.0); CREATININE 0.54 mg/dL (0.55-1.02); TOTAL PROTEIN 6.2 g/dL (6.4-8.2)
[2019-06-05 06:03] LABS: MEAN CORPUSCULAR HGB CONC 34.3 g/dL (32.4-35.8); RED CELL DISTRIBUTION WIDTH 16.7 % (9.6-15.2)
[2019-06-05 06:45] LABS: MEAN PLATELET VOLUME 10.1 fL (7.4-10.4)
[2019-06-05 06:48] LABS: BASOPHILS # (AUTO) 0.04 x10^3/uL (0-0.1); BASOPHILS % (AUTO) 1 % (0-1); EOSINOPHILS # (AUTO) 0.13 x10^3/uL (0-0.4); EOSINOPHILS % (AUTO) 4 % (1-7); LYMPHOCYTES % (AUTO) 26 % (22-44); MD SCAN; MONOCYTES # (AUTO) 0.29 x10^3/uL (0.2-0.8); MONOCYTES % (AUTO) 10 % (2-9); NEUTROPHILS % (AUTO) 59 % (42-75)
[2019-06-05 06:49] LABS: PLATELET COUNT 58 x10^3/uL (130-400)
[2019-06-05] MEDS ORDERED: MAGNESIUM SULFATE PMX 2GM/50ML 50 ML IV ONE (07:00)
[2019-06-05 08:04] VITALS: BP 132/90
[2019-06-05] MEDS: POTASSIUM CHLORIDE 20 MEQ TAB.ER.PRT PO SCH ×2 (08:38→17:18)
[2019-06-05] MEDS: FOLIC ACID 1 MG TABLET PO SCH (08:38)
[2019-06-05] MEDS: THIAMINE 100MG TABLET PO SCH (08:39)
[2019-06-05] MEDS: MAGNESIUM OXIDE 400 MG TABLET PO SCH ×2 (08:39→19:33)
[2019-06-05] MEDS: APIXABAN 5 MG TABLET PO SCH ×2 (08:39→19:33)
[2019-06-05] MEDS: PROPYLTHIOURACIL 50 MG TABLET PO SCH ×2 (08:39→19:34)
[2019-06-05] MEDS: FLUTICASONE/VILANTEROL 200-25MCG/INH INH SCH (09:00)
[2019-06-05] MEDS: DILTIAZEM CD 180 MG CAP.ER.24H PO SCH (09:00)
[2019-06-05] MEDS: ACETAMINOPHEN 325 MG TABLET PO PRN (11:19)
[2019-06-05 13:10] VITALS: BP 132/85
[2019-06-05] MEDS: OXYcodone 5 MG/5 ML ORAL.SOL UDC PO PRN ×2 (14:04→19:35)
[2019-06-05] MEDS: LISINOPRIL 10 MG TABLET PO SCH (17:18)
[2019-06-05 19:53] VITALS: BP 148/63
[2019-06-06 03:45] VITALS: BP 146/85
[2019-06-06 05:13] LABS: MEAN CORPUSCULAR HEMOGLOBIN 34.7 pg (27.0-34.8); MEAN CORPUSCULAR HGB CONC 33.7 g/dL (32.4-35.8); MEAN CORPUSCULAR VOLUME 102.9 fL (80-100); MEAN PLATELET VOLUME 10.4 fL (7.4-10.4); PLATELET COUNT 61 x10^3/uL (130-400); RED CELL DISTRIBUTION WIDTH 16.6 % (9.6-15.2)
[2019-06-06 05:15] LABS: ALANINE AMINOTRANSFERASE 35 U/L (12-78); ALBUMIN 3.2 g/dL (3.4-5.0); ANION GAP 6 mmol/L (5-15); C-REACTIVE PROTEIN, QUANT 0.31 mg/dL (0.02-0.49); CHLORIDE 111 mmol/L (98-107); CREATININE 0.44 mg/dL (0.55-1.02)
[2019-06-06 05:20] LABS: ALKALINE PHOSPHATASE 82 U/L (45-117); BILIRUBIN,TOTAL 1.4 mg/dL (0.2-1.0); TOTAL PROTEIN 6.3 g/dL (6.4-8.2)
[2019-06-06 06:04] LABS: BASOPHILS # (AUTO) 0.05 x10^3/uL (0-0.1); BASOPHILS % (AUTO) 1 % (0-1); EOSINOPHILS # (AUTO) 0.13 x10^3/uL (0-0.4); EOSINOPHILS % (AUTO) 4 % (1-7); LYMPHOCYTES # (AUTO) 0.63 x10^3/uL (1-3.4); LYMPHOCYTES % (AUTO) 18 % (22-44); MD SCAN; MONOCYTES # (AUTO) 0.39 x10^3/uL (0.2-0.8); MONOCYTES % (AUTO) 11 % (2-9); NEUTROPHILS # (AUTO) 2.39 x10^3/uL (1.8-6.8); NEUTROPHILS % (AUTO) 67 % (42-75)
[2019-06-06 08:42] VITALS: BP 141/81
[2019-06-06] MEDS: POTASSIUM CHLORIDE 20 MEQ TAB.ER.PRT PO SCH ×2 (10:06→18:04)
[2019-06-06] MEDS: APIXABAN 5 MG TABLET PO SCH ×2 (10:06→20:25)
[2019-06-06] MEDS: FOLIC ACID 1 MG TABLET PO SCH (10:06)
[2019-06-06] MEDS: DILTIAZEM CD 180 MG CAP.ER.24H PO SCH (10:06)
[2019-06-06] MEDS: PROPYLTHIOURACIL 50 MG TABLET PO SCH ×2 (10:06→20:25)
[2019-06-06] MEDS: LISINOPRIL 10 MG TABLET PO SCH (10:06)
[2019-06-06] MEDS: THIAMINE 100MG TABLET PO SCH (10:06)
[2019-06-06] MEDS: MAGNESIUM OXIDE 400 MG TABLET PO SCH ×2 (10:07→20:25)
[2019-06-06] MEDS: OXYcodone 5 MG/5 ML ORAL.SOL UDC PO PRN ×3 (10:07→20:25)
[2019-06-06] MEDS: FLUTICASONE/VILANTEROL 200-25MCG/INH INH SCH (10:09)
[2019-06-06 13:28] VITALS: BP 172/95
[2019-06-06 13:41] VITALS: BP 137/77
[2019-06-06] MEDS ORDERED: LABETALOL 5MG/ML, 20ML IVPush PRN (15:30)
[2019-06-06 18:39] VITALS: BP 156/89
[2019-06-06] MEDS ORDERED: ALBUTEROL SULFATE 2.5 MG/3 ML ONE (23:48)
[2019-06-07] MEDS ORDERED: ALBUTEROL SULFATE 2.5 MG/3 ML NPPB PRN
[2019-06-07 00:11] VITALS: BP 162/90
[2019-06-07 05:59] LABS: ALBUMIN 3.4 g/dL (3.4-5.0); ANION GAP 6 mmol/L (5-15); CALCIUM 8.8 mg/dL (8.5-10.1); CHLORIDE 107 mmol/L (98-107)
[2019-06-07 06:02] LABS: ALANINE AMINOTRANSFERASE 36 U/L (12-78); ALKALINE PHOSPHATASE 87 U/L (45-117); BILIRUBIN,TOTAL 1.5 mg/dL (0.2-1.0); CREATININE 0.45 mg/dL (0.55-1.02); TOTAL PROTEIN 6.9 g/dL (6.4-8.2)
[2019-06-07 06:17] LABS: MEAN CORPUSCULAR HEMOGLOBIN 34.6 pg (27.0-34.8); MEAN CORPUSCULAR HGB CONC 33.4 g/dL (32.4-35.8); MEAN CORPUSCULAR VOLUME 103.4 fL (80-100); RED BLOOD COUNT 3.32 x10^6/uL (3.82-5.3); RED CELL DISTRIBUTION WIDTH 16.8 % (9.6-15.2)
[2019-06-07 06:57] LABS: BASOPHILS # (AUTO) 0.05 x10^3/uL (0-0.1); BASOPHILS % (AUTO) 1 % (0-1); EOSINOPHILS % (AUTO) 2 % (1-7); LYMPHOCYTES # (AUTO) 0.69 x10^3/uL (1-3.4); LYMPHOCYTES % (AUTO) 16 % (22-44); MD SCAN; MEAN PLATELET VOLUME 10.6 fL (7.4-10.4); MONOCYTES # (AUTO) 0.55 x10^3/uL (0.2-0.8); MONOCYTES % (AUTO) 12 % (2-9); NEUTROPHILS # (AUTO) 3.02 x10^3/uL (1.8-6.8); NEUTROPHILS % (AUTO) 69 % (42-75); PLATELET COUNT 76 x10^3/uL (130-400)
[2019-06-07] MEDS ORDERED: MAGNESIUM SULFATE PMX 2GM/50ML 50 ML IV ONE (07:30)
[2019-06-07 07:34] VITALS: BP 163/89
[2019-06-07] MEDS: POTASSIUM CHLORIDE 20 MEQ TAB.ER.PRT PO SCH (07:36)
[2019-06-07] MEDS: APIXABAN 5 MG TABLET PO SCH (07:36)
[2019-06-07] MEDS: DILTIAZEM CD 180 MG CAP.ER.24H PO SCH (07:36)
[2019-06-07] MEDS: THIAMINE 100MG TABLET PO SCH (07:36)
[2019-06-07] MEDS: PROPYLTHIOURACIL 50 MG TABLET PO SCH (07:36)
[2019-06-07] MEDS: MAGNESIUM OXIDE 400 MG TABLET PO SCH (07:36)
[2019-06-07] MEDS: OXYcodone 5 MG/5 ML ORAL.SOL UDC PO PRN (07:37)
[2019-06-07] MEDS: FOLIC ACID 1 MG TABLET PO SCH (07:37)
[2019-06-07] MEDS: FLUTICASONE/VILANTEROL 200-25MCG/INH INH SCH (09:00)
[2019-06-07] MEDS ORDERED: LISINOPRIL 20 MG TABLET PO SCH (09:00)
[2019-06-07] MEDS: ACETAMINOPHEN 325 MG TABLET PO PRN (09:32)
[2019-06-07] MEDS ORDERED: ALBU18HF INH (10:05)
[2019-06-07] MEDS ORDERED: DILT180C53 PO (10:05)
== END 2019-06-07 12:27 | disposition home or self-care (01) | DRG 191 ==
LOC: ED 17:15 → EDIP 18:52 → 3WST 06-04 14:00 → 4WST 06-06 17:57
PROVIDERS: ADMIT Internal Medicine; ATTEND Family Medicine
DX: J44.1 Chronic obstructive pulmonary disease with (acute) exacerbation (principal); I50.32 Chronic diastolic (congestive) heart failure; D61.818 Other pancytopenia; J98.11 Atelectasis; J96.11 Chronic respiratory failure with hypoxia; I48.0 Paroxysmal atrial fibrillation; G89.29 Other chronic pain; I11.0 Hypertensive heart disease with heart failure; E87.6 Hypokalemia; E05.90 Thyrotoxicosis, unspecified without thyrotoxic crisis or storm; Z79.01 Long term (current) use of anticoagulants; Z79.899 Other long term (current) drug therapy; Z82.5 Family history of asthma and other chronic lower respiratory diseases; Z90.710 Acquired absence of both cervix and uterus; Z87.891 Personal history of nicotine dependence; Z86.19 Personal history of other infectious and parasitic diseases; Z03.818 Encounter for observation for suspected exposure to other biological agents ruled out
CPT/HCPCS: 36415; 71045; 80048; 80053; 81001; 82728; 83605; 83615; 83735; 83880; 84145; 84436; 84439; 84443; 84481; 84484; 85025; 86140; 87040; 93005; 93306; 94640; 99285; G0378; J0456; J2405; J3480; J2060; J2270; J3475; J7040; J7050

== ENCOUNTER 2019-06-15 21:15 | Emergency (ER) | payer OTHER ==
[~2019-06-15] VITALS: Ht 172.7 cm; Wt 72.0 kg
[~2019-06-15 21:15] MED LIST changes: +ALBU18HF INH
--- NOTE | 2019-06-15 21:20 | NUR ---
THIS IS A 68Y F BIB EMS FOR FEELING SOB AND ETOH INTOXICATION. PT IS A/O X4 UPON ARRIVAL TO ER AND IS ON 2L NC. O2 SAT MAINTAINING ABOVE 95%. PT CONNECTED TO ALL MONITORING, VSS, NADN.
[2019-06-15] MEDS ORDERED: MAALOX/HYOSCYAMINE/LIDOCAINE 45 ML BTL PO ONE (21:30)
[2019-06-15] MEDS ORDERED: PLEASE ENTER ALLERGIES MC SCH (21:30)
[2019-06-15] MEDS ORDERED: ONDANSETRON ODT 8 MG PO ONE (21:30)
[2019-06-15] MEDS ORDERED: ONDANSETRON ODT 4 MG ONE (21:34)
[2019-06-15] MEDS ORDERED: MAALOX/HYOSCYAMINE/LIDOCAINE 45 ML BTL ONE (21:40)
[2019-06-15 22:04] LABS: MEAN CORPUSCULAR HEMOGLOBIN 33.8 pg (27.0-34.8); MEAN CORPUSCULAR HGB CONC 32.9 g/dL (32.4-35.8); MEAN CORPUSCULAR VOLUME 102.6 fL (80-100); MEAN PLATELET VOLUME 8.4 fL (7.4-10.4); PLATELET COUNT 277 x10^3/uL (130-400); RED BLOOD COUNT 3.66 x10^6/uL (3.82-5.3); RED CELL DISTRIBUTION WIDTH 15.6 % (9.6-15.2)
[2019-06-15 22:07] LABS: MD YES
[2019-06-15 22:10] LABS: ALANINE AMINOTRANSFERASE 47 U/L (12-78); ALBUMIN 3.6 g/dL (3.4-5.0); ANION GAP 9 mmol/L (5-15); CALCIUM 8.3 mg/dL (8.5-10.1); CHLORIDE 115 mmol/L (98-107); CREATININE 0.69 mg/dL (0.55-1.02)
[2019-06-15 22:14] LABS: ALKALINE PHOSPHATASE 110 U/L (45-117); BILIRUBIN,TOTAL 0.7 mg/dL (0.2-1.0); TOTAL PROTEIN 7.3 g/dL (6.4-8.2); TROPONIN I < 0.015 ng/mL (0.000-0.045)
[2019-06-15 22:15] LABS: BAND#(MANUAL) 0.03 x10^3/uL; BANDS%(MANUAL) 1 % (0-7); EOS% (MANUAL) 3 % (1-7); LYMPH#(MANUAL) 1.33 x10^3/uL (1-3.4); LYMPHS% (MANUAL) 39 % (22-44); MONOS#(MANUAL) 0.24 x10^3/uL (0.3-2.7); MONOS% (MANUAL) 7 % (2-9); MYELOCYTES# (MANUAL) 0.03 x10^3/uL (0-0); MYELOCYTES% (MANUAL) 1 % (0-0); REACTIVE LYMPHS % (MANUAL) 6 % (0-0); SEG#(MANUAL) 1.46 x10^3/uL (1.8-6.8); SEGS% (MANUAL) 43 % (42-75)
[2019-06-15 22:16] LABS: <PLATELET ESTIMATE> ADEQUATE; <PLT MORPHOLOGY> NORMAL PLT MORPH; <RBC MORPHOLOGY> NORMAL
[2019-06-15 23:17] VITALS: BP 111/71
--- NOTE | 2019-06-15 23:17 | NUR ---
pt resting on gurney, resp even and unlabored shaina
--- NOTE | 2019-06-16 01:41 | NUR ---
PT REMOVING MONITORING, STS SHE WANTS TO GO HOME TO HER DOG GRUMPY.
--- NOTE | 2019-06-16 02:10 | NUR ---
PT RESTING ON GURNEY NADN, PT STILL VERY DROWSY AT THIS TIME
--- NOTE | 2019-06-16 02:58 | NUR ---
PT AMBULATED WITH STEADY GAIT OUT OF ER. PT REFUSED CAB VOUCHER STS "I HAVE MONEY."
== END 2019-06-16 03:00 | disposition home or self-care (01) ==
LOC: MERGE 21:15 → EDBD 21:15 → ED 21:51
DX: K29.20 Alcoholic gastritis without bleeding (principal); K20.9 Esophagitis, unspecified; R07.9 Chest pain, unspecified; F10.10 Alcohol abuse, uncomplicated; Z72.9 Problem related to lifestyle, unspecified; I11.0 Hypertensive heart disease with heart failure; I50.9 Heart failure, unspecified; I48.91 Unspecified atrial fibrillation; J43.1 Panlobular emphysema; J43.9 Emphysema, unspecified; M19.90 Unspecified osteoarthritis, unspecified site; Z90.710 Acquired absence of both cervix and uterus; Z87.891 Personal history of nicotine dependence; Z86.39 Personal history of other endocrine, nutritional and metabolic disease; Y90.9 Presence of alcohol in blood, level not specified
CPT/HCPCS: 36415; 71045; 80053; 80307; 83690; 83880; 84484; 85025; 93005; 99285; Q0162

== ENCOUNTER 2019-06-28 19:01 | Emergency (ER) | payer OTHER ==
[~2019-06-28] VITALS: Ht 172.7 cm; Wt 63.6 kg
--- NOTE | 2019-06-28 19:20 | NUR ---
PT ARRIVED VIA [facility] FOR CP AND SOB THAT BEGAN THIS AFTERNOON. PT STATES THAT SHE HAS BEEN DRINKING AND THAT SHE DRANK "2-3 BEERS BUT DOESN'T REMEMBER". PT IS INTOXICATED. COMPLAINING OF L SIDED CP AND SOB. PT EUPNIC AND BREATHING UNLABORED. PT STATES HE CP STARTS ON THE L SIDE AND RADIATES ACROSS CHEST. PT HAS HX OF [place]. EKG DONE. PT CONNECTED TO GALLERY OR MUSEUM ATTENDANT. WILL CONTINUE TO MONITOR.
--- NOTE | 2019-06-28 20:04 | NUR ---
PT O2 SAT WHILE SLEEPING 82-86%. PLACED PT ON 2LNC
[2019-06-28 20:29] LABS: ALBUMIN 3.6 g/dL (3.4-5.0); ANION GAP 17 mmol/L (5-15); CALCIUM 8.1 mg/dL (8.5-10.1); CHLORIDE 111 mmol/L (98-107); CREATININE 1.01 mg/dL (0.55-1.02)
[2019-06-28 20:33] LABS: TROPONIN I < 0.015 ng/mL (0.000-0.045)
[2019-06-28 20:46] LABS: MEAN CORPUSCULAR HEMOGLOBIN 34.2 pg (27.0-34.8); MEAN CORPUSCULAR HGB CONC 33.4 g/dL (32.4-35.8); MEAN CORPUSCULAR VOLUME 102.5 fL (80-100)
[2019-06-28 20:50] LABS: BASOPHILS # (AUTO) 0.04 x10^3/uL (0-0.1); BASOPHILS % (AUTO) 1 % (0-1); EOSINOPHILS # (AUTO) 0.08 x10^3/uL (0-0.4); EOSINOPHILS % (AUTO) 3 % (1-7); LYMPHOCYTES # (AUTO) 1.14 x10^3/uL (1-3.4); LYMPHOCYTES % (AUTO) 40 % (22-44); MD SCAN; MEAN PLATELET VOLUME 9.7 fL (7.4-10.4); MONOCYTES # (AUTO) 0.24 x10^3/uL (0.2-0.8); MONOCYTES % (AUTO) 9 % (2-9); NEUTROPHILS # (AUTO) 1.38 x10^3/uL (1.8-6.8); NEUTROPHILS % (AUTO) 48 % (42-75); PLATELET COUNT 93 x10^3/uL (130-400)
[2019-06-28] MEDS ORDERED: POTASSIUM CHLORIDE 20 MEQ TAB.ER.PRT PO ONE (21:00)
[2019-06-28] MEDS ORDERED: POTASSIUM CHLORIDE 20 MEQ TAB.ER.PRT ONE (21:03)
[2019-06-29 00:25] LABS: TROPONIN I < 0.015 ng/mL (0.000-0.045)
--- NOTE | 2019-06-29 02:15 | NUR ---
Report received from BALJINDER Marin. This RN to assume care. Patient sleeping in [facility]. Unable to ambulate at this time.
[2019-06-29 02:18] VITALS: BP 115/86
== END 2019-06-29 03:06 | disposition home or self-care (01) ==
LOC: ED 06-29 03:05
DX: R07.2 Precordial pain (principal); F10.229 Alcohol dependence with intoxication, unspecified; R06.02 Shortness of breath; E87.6 Hypokalemia; Y90.9 Presence of alcohol in blood, level not specified; I11.0 Hypertensive heart disease with heart failure; I50.9 Heart failure, unspecified; J44.9 Chronic obstructive pulmonary disease, unspecified; I48.91 Unspecified atrial fibrillation; Z90.710 Acquired absence of both cervix and uterus
CPT/HCPCS: 36415; 71045; 80048; 80307; 82040; 83735; 84484; 85025; 93005; 99285

== ENCOUNTER 2019-07-31 17:00 | Emergency (ER) | payer OTHER ==
[~2019-07-31] VITALS: Ht 188 cm; Wt 100.0 kg
--- NOTE | 2019-07-31 17:25 | NUR ---
BIB BY ISABLE FROM HOME FOR SOB/CHEST PAIN X 4 HOURS. RECENTLY DISCHARGED FROM HERE WITH DX OF COPD AND AND REQUIREMENT FOR 4L NC NO O2 EQUIPMENT FOUND BY EMS AT HOME PER FAMILY PATIENT DRANK 2 PINT TODAY ROOM AIR SAT 82%
--- NOTE | 2019-07-31 17:25 | NUR ---
WITH 4L NC PATIENT AT 92-96% AWAKE/ALERT PROVIDED WITH FOOD/WATER UPDATED ON ESTIMED POC
[2019-07-31 17:51] LABS: ALBUMIN 3.3 g/dL (3.4-5.0); ANION GAP 17 mmol/L (5-15); CALCIUM 7.5 mg/dL (8.5-10.1); CHLORIDE 109 mmol/L (98-107)
[2019-07-31 17:57] LABS: ALANINE AMINOTRANSFERASE 84 U/L (12-78); ALKALINE PHOSPHATASE 127 U/L (45-117); BILIRUBIN,TOTAL 1.1 mg/dL (0.2-1.0); CREATININE 0.73 mg/dL (0.55-1.02); TOTAL PROTEIN 7.3 g/dL (6.4-8.2); TROPONIN I 0.017 ng/mL (0.000-0.045)
[2019-07-31 18:22] LABS: BASOPHILS # (AUTO) 0.06 x10^3/uL (0-0.1); BASOPHILS % (AUTO) 2 % (0-1); EOSINOPHILS # (AUTO) 0.02 x10^3/uL (0-0.4); EOSINOPHILS % (AUTO) 1 % (1-7); LYMPHOCYTES # (AUTO) 1.01 x10^3/uL (1-3.4); LYMPHOCYTES % (AUTO) 33 % (22-44); MD NO; MEAN CORPUSCULAR HEMOGLOBIN 34.4 pg (27.0-34.8); MEAN CORPUSCULAR HGB CONC 33.3 g/dL (32.4-35.8); MEAN CORPUSCULAR VOLUME 103.5 fL (80-100); MEAN PLATELET VOLUME 9.4 fL (7.4-10.4); MONOCYTES # (AUTO) 0.23 x10^3/uL (0.2-0.8); MONOCYTES % (AUTO) 8 % (2-9); NEUTROPHILS # (AUTO) 1.79 x10^3/uL (1.8-6.8); NEUTROPHILS % (AUTO) 58 % (42-75); PLATELET COUNT 119 x10^3/uL (130-400); RED BLOOD COUNT 3.21 x10^6/uL (3.82-5.3); RED CELL DISTRIBUTION WIDTH 16.7 % (9.6-15.2)
--- NOTE | 2019-07-31 18:31 | NUR ---
PROVIDER REMINDED THAT TESTING RESULTING INCLUDING ABNOMALITIES WITH CXR AND ELECTROLYTES (HYPOKALEMIA)- PROVIDER TO CONSIDER PLAN
--- NOTE | 2019-07-31 19:00 | NUR ---
Bedside report to Maricarmen GALE
--- NOTE | 2019-07-31 19:00 | NUR ---
BEDSIDE REPORT FROM BALJINDER MIRANDA. PT AWAKE/ALERT AND CAN ADJUST SELF IN [facility]. PT SLUMPED OVER IN [facility], ELECTIVELY, AND CAN ADJUST SELF NEEDED. SPO2 >90% ON 4L BY NC. REPORT RECEIVED THAT PT IS HYPOKALEMIC, KCL IVF ORDERED FROM PHARMACY. BP/SPO2/ECG MONITORING IN PLACE. NSR ON MONITOR.
--- NOTE | 2019-07-31 19:33 | NUR ---
ANSWERED CALL LIGHT. PT STATING "WHY DOES IT HAVE TO BE LIKE THIS? I'M IN PAIN". PT MADE AWARE OF LIMITED RX OPTIONS FOR PAIN GIVEN ETOH LEVEL AND DEMONSTRATES UNDERSTANDING. ERP MADE AWARE. AWAITING ORDERS.
[2019-07-31 19:52] VITALS: BP 152/80
--- NOTE | 2019-07-31 19:54 | NUR ---
PT MEDICATED PER EMAR FOR HYPOKALEMIA, K+ 2.8. PT STATES "I WANT TO LEAVE, I DON'T WANT TO BE HERE. IF YOU KEEP ME HERE I WILL DETOX". PT REPORTS THAT SHE USUALLY WEARS O2 AT HOME, BUT HASN'T BECAUSE SHES "TOO BUSY DRINKING". RA TRIAL: 86%. ERP AWARE.
[2019-07-31] MEDS ORDERED: SODIUM CHLORIDE FLUSH 10ML SYR IVF ONE (20:00)
[2019-07-31] MEDS ORDERED: POTASSIUM CHLORIDE 40 MEQ in SODIUM CHLORIDE 0.9% 500 ML IV ONE (20:00)
[2019-07-31] MEDS ORDERED: POTASSIUM CHLORIDE 40 MEQ in SODIUM CHLORIDE 0.9% 500 ML IV SCH (20:00)
--- NOTE | 2019-07-31 20:10 | NUR ---
PT PROVIDED SANDWICH
--- NOTE | 2019-07-31 20:23 | NUR ---
ERP IN TO DISCUSS ADMIT VS DC WITH PT. PT REQUESTING TO GO HOME. PT REPORTEDLY HAS A CONCENTRATOR AND "HASN'T BEEN USING IT". PT AWARE OF CONSEQUENCES OF NOT USING SUPPLEMENTAL O2 UP TO AND INCLUDING . PT DEMONSTRATES UNDERSTANDING.
[2019-07-31] MEDS ORDERED: POTASSIUM CHLORIDE 20 MEQ TAB.ER.PRT PO ONE (20:30)
[2019-07-31] MEDS ORDERED: POTASSIUM CHLORIDE 20 MEQ TAB.ER.PRT ONE (20:37)
== END 2019-07-31 21:26 | disposition home or self-care (01) ==
LOC: ED 19:13
DX: K70.10 Alcoholic hepatitis without ascites (principal); F10.220 Alcohol dependence with intoxication, uncomplicated; E87.6 Hypokalemia; F17.200 Nicotine dependence, unspecified, uncomplicated; E05.90 Thyrotoxicosis, unspecified without thyrotoxic crisis or storm; J43.9 Emphysema, unspecified; E87.5 Hyperkalemia; E83.42 Hypomagnesemia; I48.91 Unspecified atrial fibrillation; Z90.710 Acquired absence of both cervix and uterus; Y90.0 Blood alcohol level of less than 20 mg/100 ml
CPT/HCPCS: 36415; 71045; 80053; 80307; 83880; 84484; 85025; 93005; 96365; 99285; J3480; J7040

== ENCOUNTER 2019-08-06 20:57 | Inpatient (IN) | payer OTHER ==
[~2019-08-06] VITALS: Ht 172.7 cm; Wt 74.3 kg
--- NOTE | 2019-08-06 21:12 | NUR ---
BIBA FOR SOB, RECENTLY DX WITH PNA, PT REPORTS DID NOT TAKE MEDS. HAD TYLENOL AT HOME FOR FEVER. [facility] GAVE ALBUTEROL AND DUONEB BREATHING TREATMENT. PLACED ON VITAL AND CERTIFIED NURSE. SAFETY PRECAUTION IN PLACE.
[2019-08-06] MEDS ORDERED: ACETAMINOPHEN 500 MG TABLET ONE (21:24)
--- NOTE | 2019-08-06 21:29 | NUR ---
STUMPER FELLER AT BEDSIDE FOR LABS AND BLOOD CULTURES.
[2019-08-06] MEDS ORDERED: ACETAMINOPHEN 500 MG TABLET PO ONE (21:30)
[2019-08-06 21:57] LABS: ALANINE AMINOTRANSFERASE 72 U/L (12-78); ALBUMIN 3.4 g/dL (3.4-5.0); ANION GAP 24 mmol/L (5-15); CALCIUM 7.3 mg/dL (8.5-10.1); CHLORIDE 104 mmol/L (98-107); CREATININE 0.64 mg/dL (0.55-1.02)
[2019-08-06] MEDS ORDERED: CEFTRIAXONE PMX 1GM/50ML 50 ML IV ONE (22:00)
[2019-08-06] MEDS ORDERED: AZITHROMYCIN 500 MG in SODIUM CHLORIDE 0.9% 250 ML IV ONE (22:00)
[2019-08-06 22:01] LABS: ALKALINE PHOSPHATASE 117 U/L (45-117); BILIRUBIN,TOTAL 3.2 mg/dL (0.2-1.0); TOTAL PROTEIN 7.8 g/dL (6.4-8.2); TROPONIN I < 0.015 ng/mL (0.000-0.045)
[2019-08-06] MEDS ORDERED: CEFTRIAXONE PMX 1GM/50ML 50 ML ONE (22:07)
[2019-08-06 22:27] LABS: BASOPHILS % (AUTO) 0 % (0-1); EOSINOPHILS % (AUTO) 0 % (1-7); LYMPHOCYTES # (AUTO) 0.17 x10^3/uL (1-3.4); LYMPHOCYTES % (AUTO) 2 % (22-44); MD SCAN; MEAN CORPUSCULAR HEMOGLOBIN 35.1 pg (27.0-34.8); MEAN CORPUSCULAR HGB CONC 33.2 g/dL (32.4-35.8); MEAN CORPUSCULAR VOLUME 105.9 fL (80-100); MEAN PLATELET VOLUME 9.9 fL (7.4-10.4); MONOCYTES # (AUTO) 0.25 x10^3/uL (0.2-0.8); MONOCYTES % (AUTO) 4 % (2-9); NEUTROPHILS # (AUTO) 6.56 x10^3/uL (1.8-6.8); NEUTROPHILS % (AUTO) 94 % (42-75); PLATELET COUNT 70 x10^3/uL (130-400); RED BLOOD COUNT 3.59 x10^6/uL (3.82-5.3)
[2019-08-06] MEDS ORDERED: POTASSIUM CHLORIDE 20 MEQ TAB.ER.PRT ONE (22:49)
--- NOTE | 2019-08-06 22:51 | NUR ---
MEDICATED PER APR. RT AT BEDSIDE.
[2019-08-06] MEDS ORDERED: POTASSIUM CHLORIDE 20 MEQ TAB.ER.PRT PO ONE (23:00)
[2019-08-06] MEDS ORDERED: SODIUM CHLORIDE 0.9% 1,000ML IVBOLUS ONE (23:00)
--- NOTE | 2019-08-06 23:00 | NUR ---
SEPSIS BOLUS COMPLETED, GIVEN 1L NS BOLUS PER ERP ORDER, PT NOT HYPOTENSIVE AT THIS TIME, CONCERNS OF CHF EXACERBATION FROM FLUID OVERLOAD. PER MD OKAY TO REFRAIN FROM GIVING 2ND AND 3RD LITER BOLUS.
[2019-08-07] MEDS ORDERED: THIAMINE 200 MG in SODIUM CHLORIDE 0.9% 50 ML IV ONE
[2019-08-07] MEDS ORDERED: hydrALAzine 20 MG/ML, 1ML IVPush PRN
[2019-08-07] MEDS ORDERED: APIXABAN 5 MG TABLET PO SCH
[2019-08-07] MEDS ORDERED: DILTIAZEM 5 MG/ML, 5ML IVPush PRN
[2019-08-07] MEDS ORDERED: ONDANSETRON 2MG/ML, 2ML IVPush PRN
[2019-08-07] MEDS ORDERED: methylPREDNISolone SOD SUCC 125 MG/2 ML ONE ×2 (00:19→06:20)
[2019-08-07] MEDS ORDERED: APIXABAN 5 MG TABLET ONE ×2 (00:20→08:18)
[2019-08-07] MEDS ORDERED: MAGNESIUM SULFATE PMX 2GM/50ML 50 ML ONE (00:20)
[2019-08-07] MEDS: methylPREDNISolone SOD SUCC 125 MG/2 ML IVPush SCH ×5 (00:27→23:58)
[2019-08-07] MEDS ORDERED: CALCIUM GLUCONATE 4.6 MEQ in SODIUM CHLORIDE 0.9% 50 ML IV ONE (00:30)
[2019-08-07] MEDS ORDERED: POTASSIUM CHLORIDE 40 MEQ in SODIUM CHLORIDE 0.9% 500 ML IV ONE (00:30)
[2019-08-07] MEDS ORDERED: LACTATED RINGERS 1,000 ML IV SCH ×2 (00:30→03:00)
--- NOTE | 2019-08-07 01:44 | NUR ---
REPORT GIVEN TO ESPINOZA GALE.
[2019-08-07] MEDS ORDERED: ETOMIDATE 20 MG/10 ML IVPush ONE (02:00)
[2019-08-07] MEDS ORDERED: ROCURONIUM 10 MG/ML,10ML IVPush ONE (02:00)
[2019-08-07] MEDS: PROPOFOL 100 ML IV PRN ×4 (02:26→18:23)
[2019-08-07] MEDS ORDERED: ALBUTEROL SULFATE 2.5 MG/3 ML ONE (02:51)
[2019-08-07 03:08] LABS: ALANINE AMINOTRANSFERASE 70 U/L (12-78); ALBUMIN 3.2 g/dL (3.4-5.0); ANION GAP 20 mmol/L (5-15); CHLORIDE 105 mmol/L (98-107); CREATININE 0.65 mg/dL (0.55-1.02)
[2019-08-07 03:11] LABS: ALKALINE PHOSPHATASE 112 U/L (45-117); TOTAL PROTEIN 7.7 g/dL (6.4-8.2)
[2019-08-07 03:18] LABS: MEAN CORPUSCULAR HEMOGLOBIN 34.9 pg (27.0-34.8); MEAN CORPUSCULAR HGB CONC 33.2 g/dL (32.4-35.8); MEAN CORPUSCULAR VOLUME 105.3 fL (80-100); MEAN PLATELET VOLUME 9.7 fL (7.4-10.4); PLATELET COUNT 68 x10^3/uL (130-400); RED BLOOD COUNT 3.74 x10^6/uL (3.82-5.3); RED CELL DISTRIBUTION WIDTH 16.6 % (9.6-15.2)
[2019-08-07] MEDS ORDERED: NOREPINEPHRINE 8 MG in SODIUM CHLORIDE 0.9% 242 ML IV PRN ×2 (03:20→05:00)
[2019-08-07] MEDS ORDERED: DEXTROSE 50%, 50ML SYRINGE IVPush PRN (03:30)
[2019-08-07] MEDS ORDERED: PHARMACY MAY ADJ FOR RENAL FX MC SCH (03:30)
[2019-08-07] MEDS ORDERED: GLUCAGON 1 MG IM PRN (03:30)
[2019-08-07] MEDS ORDERED: BISACODYL 10 MG SUPP PR PRN (03:30)
[2019-08-07] MEDS ORDERED: SENNA 176 MG/5 ML ORAL SOL NG PRN (03:30)
[2019-08-07] MEDS ORDERED: LIDOCAINE-MPF 1%, 2ML ENDO PRN (03:30)
[2019-08-07] MEDS ORDERED: SENNA/DOCUSATE TABLET NG PRN (03:30)
[2019-08-07] MEDS ORDERED: SODIUM CHLORIDE 0.9% 1,000ML IVBOLUS ONE (03:30)
[2019-08-07] MEDS ORDERED: LACTULOSE 20 GM/30 ML UDC NG PRN (03:30)
[2019-08-07] MEDS ORDERED: DEXTROSE 4 GM TAB.CHEW PO PRN (03:30)
[2019-08-07] MEDS ORDERED: ACETAMINOPHEN 650 MG/20.3 ML UDC PO/NG PRN (03:30)
[2019-08-07] MEDS ORDERED: VANCOMYCIN PER PHARMACY MC PRN (03:30)
[2019-08-07] MEDS ORDERED: FENTANYL PF 100 MCG/2ML IVPush PRN (03:30)
[2019-08-07 03:34] LABS: FREE T4 (FREE THYROXINE) 1.11 ng/dL (0.76-1.46)
[2019-08-07 03:51] LABS: MD YES
[2019-08-07 03:54] LABS: BAND#(MANUAL) 0.77 x10^3/uL; BANDS%(MANUAL) 17 % (0-7); BASOS#(MANUAL) 0.09 x10^3/uL (0-0.1); BASOS% (MANUAL) 2 % (0-1); LYMPH#(MANUAL) 0.18 x10^3/uL (1-3.4); LYMPHS% (MANUAL) 4 % (22-44); METAMYELOCYTES# (MANUAL) 0.18 x10^3/uL (0-0); METAMYELOCYTES% (MANUAL) 4 % (0-1); MONOS#(MANUAL) 0.09 x10^3/uL (0.3-2.7); MONOS% (MANUAL) 2 % (2-9); NRBC % (MANUAL) 2 % (0-1); SEGS% (MANUAL) 71 % (42-75); TROPONIN I < 0.015 ng/mL (0.000-0.045)
[2019-08-07 03:55] LABS: <PLATELET ESTIMATE> DECREASED; <PLT MORPHOLOGY> NORMAL PLT MORPH; ANISOCYTOSIS 1+
--- NOTE | 2019-08-07 04:18 | NUR ---
PT RESTING IN BED ON VENT WITH SEDATION. PT SHOWING NO SIGNS OF DISTRESS. EXTRACTOR PLANT OPERATOR WILL CONTINUE TO MONITOR PT AND PT VITALS
[2019-08-07] MEDS ORDERED: MIDAZOLAM 1 MG/ML, 2ML ONE ×3 (04:27→08:46)
[2019-08-07] MEDS: MIDAZOLAM 1 MG/ML, 2ML IVPush PRN ×3 (04:29→08:54)
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
[2019-08-07] MEDS ORDERED: ALBUTEROL/IPRATROPIUM 2.5MG/0.5MG, 3 ML ONE (05:43)
[2019-08-07] MEDS ORDERED: PHARMACOKINETIC MONITORING MC PRN (06:00)
[2019-08-07] MEDS: PIPERACILLIN/TAZO/PMX 3.375GM 50 ML IV SCH ×4 (06:00→23:58)
--- NOTE | 2019-08-07 06:01 | NUR ---
PT AGGITATED AND BITTING THE TUBE AFTER RT SUCTIONING AND RT XRAY BOARD, PT PROPOFOL INCREASED.
--- NOTE | 2019-08-07 06:15 | NUR ---
PT AWOKE AND PT TRIED TO SIT UP, PT PROPOFOL INCREASED
[2019-08-07] MEDS ORDERED: PIPERACILLIN/TAZO/PMX 3.375GM 50 ML ONE (06:20)
[2019-08-07] MEDS: ALBUTEROL/IPRATROPIUM 2.5MG/0.5MG, 3 ML INLINE SCH ×5 (07:00→22:26)
[2019-08-07] MEDS ORDERED: ALBUTEROL SULFATE 2.5 MG/3 ML NPPB SCH (07:00)
--- NOTE | 2019-08-07 07:30 | NUR ---
SBAR RPT REC'D FROM BALJINDER MANRIQUE. ALL IV FLUIDS VERIFIED. COMPLETE LINNEN CHANGE, PILLOWS PLACED UNDER GLEN ARMS AND UNDER HEAD, CLEAN GOWN PLACED. GLEN WRIST RESTRAINTS RELEASED AND PASSIVE ROM COMPLETED. PT REACHES FOR ETT WHEN UNRESTRAINED. PT IS EASILY AGGITATED. PROPOFOL GTT INCREASED TO 50 MCG/KG/MIN WITH EFFECT. HOB UP 30 DEGREES.
[2019-08-07] MEDS ORDERED: PROPOFOL 100 ML IV ONE (07:47)
[2019-08-07 07:49] LABS: BENZODIAZEPINE SCREEN, URINE Positive (Negative); CANNABINOID SCREEN, URINE Negative (Negative); COCAINE SCREEN, URINE Negative (Negative); METHADONE SCREEN, URINE Negative (Negative); OPIATE SCREEN, URINE Negative (Negative)
[2019-08-07 07:51] LABS: AMPHETAMINE SCREEN, URINE Negative (Negative); BARBITURATE SCREEN, URINE Negative (Negative)
[2019-08-07] MEDS ORDERED: ETOMIDATE 20 MG/10 ML ONE (08:00)
[2019-08-07] MEDS ORDERED: PROPOFOL 10 MG/ML, 100ML IV ONE (08:00)
[2019-08-07] MEDS ORDERED: ROCURONIUM 10 MG/ML,10ML ONE (08:00)
[2019-08-07] MEDS ORDERED: PANTOPRAZOLE 40 MG IV ONE (08:18)
[2019-08-07] MEDS ORDERED: THIAMINE 100MG TABLET ONE (08:18)
--- NOTE | 2019-08-07 08:35 | NUR ---
PHONED BOTH RT, HAYLEY AND CRITICAL CARE DR PANDA. SBAR RPT REVIEWED. RT TO DECREASE FI02 AND PLACE BITE BLOCK. HR, DILT, LISINOPRIL AM DOSES DISCUSSED WITH DR PANDA. WILL HOLD BOTH DILT AND LISINOPRIL. HR 130'S APEARS SINUS ON MONITOR BUT WILL EREPEAT 12LEAD EKG. ALSO DISCUSSED PT AGGITATION, VERSED GTT TO BE ORDERED.
[2019-08-07] MEDS: DILTIAZEM CD 180 MG CAP.ER.24H PO SCH (08:37)
[2019-08-07] MEDS ORDERED: PANTOPRAZOLE 40 MG IV IV SCH (09:00)
[2019-08-07] MEDS ORDERED: THIAMINE 100MG TABLET PO SCH (09:00)
[2019-08-07] MEDS ORDERED: LISINOPRIL 10 MG TABLET PO SCH (09:00)
[2019-08-07] MEDS ORDERED: FOLIC ACID 1 MG TABLET PO SCH (09:00)
[2019-08-07] MEDS: MIDAZOLAM HCL 50 MG in SODIUM CHLORIDE 0.9% 40 ML IV PRN ×2 (09:15→20:10)
[2019-08-07] MEDS: VANCOMYCIN PMX 1GM/200ML 200 ML IVPB SCH ×2 (09:18→20:09)
[2019-08-07] MEDS: MULTIVITAMIN 1 TABLET PO SCH (09:21)
[2019-08-07] MEDS: PROPYLTHIOURACIL 50 MG TABLET PO SCH ×2 (09:21→20:09)
[2019-08-07] MEDS: SODIUM CHLORIDE FLUSH 10ML SYR IVF SCH ×2 (09:22→20:08)
[2019-08-07] MEDS ORDERED: SODIUM BICARBONATE 8.4% 150 MEQ in DEXTROSE 5% 1,000 ML IV SCH (09:30)
--- NOTE | 2019-08-07 09:35 | NUR ---
MEDS GIVEN THROUGH NGT, NGT CLAMPED.
[2019-08-07 09:40] LABS: ANION GAP 14 mmol/L (5-15); CALCIUM 7.1 mg/dL (8.5-10.1); CHLORIDE 108 mmol/L (98-107); CREATININE 0.65 mg/dL (0.55-1.02)
[2019-08-07 09:44] LABS: TROPONIN I 0.116 ng/mL (0.000-0.045)
[2019-08-07] MEDS: LACTATED RINGERS 1,000 ML IV SCH ×2 (11:00→23:58)
[2019-08-07] MEDS ORDERED: POTASSIUM CHLORIDE 10% 40 MEQ/30 ML UDC PO ONE (11:30)
--- NOTE | 2019-08-07 11:32 | NUR ---
SBAR UPDATE PROVIDED TO DR CORDOVA VIA PHONE. WILL HOLD ELIQUIS FOR NOW 2/2 POSS GI BLEED.
[2019-08-07] MEDS: POTASSIUM CHLORIDE 20 MEQ, MAGNESIUM SULFATE 1 GM, THIAMINE 200 MG, FOLIC ACID 1 MG, MV... IV SCH (12:00)
[2019-08-07 12:34] VITALS: BP 118/85
[2019-08-07 12:46] LABS: INTERNATIONAL NORMALIZED RATIO 1.1 (0.93-1.1); PROTHROMBIN TIME 11.7 Seconds (9.6-11.5)
[2019-08-07] MEDS ORDERED: MAGNESIUM SULFATE PMX 2GM/50ML 50 ML IV ONE ×2 (14:00)
[2019-08-07 14:32] LABS: TROPONIN I 0.146 ng/mL (0.000-0.045)
[2019-08-07] MEDS ORDERED: AZITHROMYCIN 500 MG in SODIUM CHLORIDE 0.9% 250 ML IV SCH (22:30)
[2019-08-07] MEDS ORDERED: CEFTRIAXONE PMX 1GM/50ML 50 ML IV SCH (22:30)
[2019-08-08] MEDS: ALBUTEROL/IPRATROPIUM 2.5MG/0.5MG, 3 ML INLINE SCH ×6 (02:32→22:15)
[2019-08-08] MEDS: PROPOFOL 100 ML IV PRN ×3 (03:45→13:29)
[2019-08-08 04:00] VITALS: BP 92/66
[2019-08-08] MEDS: methylPREDNISolone SOD SUCC 125 MG/2 ML IVPush SCH ×3 (05:36→18:00)
[2019-08-08] MEDS: PANTOPRAZOLE 40 MG IV IVPush SCH (05:36)
[2019-08-08] MEDS: PIPERACILLIN/TAZO/PMX 3.375GM 50 ML IV SCH ×3 (05:36→18:01)
[2019-08-08] MEDS ORDERED: PANTOPRAZOLE 40MG TABLET PO SCH (06:00)
[2019-08-08 06:21] LABS: ANION GAP 8 mmol/L (5-15); CHLORIDE 108 mmol/L (98-107)
[2019-08-08 06:40] LABS: MEAN CORPUSCULAR HEMOGLOBIN 34.9 pg (27.0-34.8); MEAN CORPUSCULAR HGB CONC 33.5 g/dL (32.4-35.8); RED BLOOD COUNT 3.15 x10^6/uL (3.82-5.3); RED CELL DISTRIBUTION WIDTH 16.4 % (9.6-15.2)
[2019-08-08 06:41] LABS: MEAN PLATELET VOLUME 9.5 fL (7.4-10.4); PLATELET COUNT 63 x10^3/uL (130-400)
[2019-08-08 06:43] LABS: MD YES
[2019-08-08 06:47] LABS: BAND#(MANUAL) 1.06 x10^3/uL; BANDS%(MANUAL) 16 % (0-7); LYMPHS% (MANUAL) 3 % (22-44); MONOS#(MANUAL) 0.13 x10^3/uL (0.3-2.7); MONOS% (MANUAL) 2 % (2-9); REACTIVE LYMPHS # (MANUAL) 0.07 x10^3/uL (0-0); REACTIVE LYMPHS % (MANUAL) 1 % (0-0); SEG#(MANUAL) 5.15 x10^3/uL (1.8-6.8); SEGS% (MANUAL) 78 % (42-75)
[2019-08-08 06:49] LABS: <PLATELET ESTIMATE> DECREASED; GIANT PLATELETS 1+; LARGE PLATELETS 1+; STOMATOCYTES 1+
[2019-08-08] MEDS ORDERED: POTASSIUM CHLORIDE 10% 40 MEQ/30 ML UDC PO ONE (07:00)
[2019-08-08] MEDS: PROPYLTHIOURACIL 50 MG TABLET PO SCH ×2 (08:12→21:27)
[2019-08-08] MEDS: MIDAZOLAM HCL 50 MG in SODIUM CHLORIDE 0.9% 40 ML IV PRN ×2 (08:12→21:26)
[2019-08-08] MEDS: MULTIVITAMIN 1 TABLET PO SCH (08:12)
[2019-08-08] MEDS: DILTIAZEM CD 180 MG CAP.ER.24H PO SCH (08:13)
[2019-08-08] MEDS: SODIUM CHLORIDE FLUSH 10ML SYR IVF SCH ×2 (08:20→21:28)
[2019-08-08] MEDS: VANCOMYCIN PMX 1GM/200ML 200 ML IVPB SCH ×2 (09:00→21:27)
[2019-08-08] MEDS: POTASSIUM CHLORIDE 20 MEQ, MAGNESIUM SULFATE 1 GM, THIAMINE 200 MG, FOLIC ACID 1 MG, MV... IV SCH (13:00)
[2019-08-08] MEDS ORDERED: CALCIUM GLUCONATE 9.2 MEQ in SODIUM CHLORIDE 0.9% 100 ML IV ONE (15:00)
[2019-08-09] MEDS: PIPERACILLIN/TAZO/PMX 3.375GM 50 ML IV SCH ×2 (00:42→05:36)
[2019-08-09] MEDS: methylPREDNISolone SOD SUCC 125 MG/2 ML IVPush SCH ×4 (00:42→22:34)
[2019-08-09] MEDS: PROPOFOL 100 ML IV PRN ×2 (01:33→06:49)
[2019-08-09] MEDS: ALBUTEROL/IPRATROPIUM 2.5MG/0.5MG, 3 ML INLINE SCH ×6 (02:16→22:20)
[2019-08-09 04:00] VITALS: BP 115/82
[2019-08-09 05:03] LABS: MEAN CORPUSCULAR HGB CONC 33.1 g/dL (32.4-35.8); MEAN CORPUSCULAR VOLUME 105.8 fL (80-100); MEAN PLATELET VOLUME 11.2 fL (7.4-10.4); PLATELET COUNT 69 x10^3/uL (130-400); RED BLOOD COUNT 3.23 x10^6/uL (3.82-5.3); RED CELL DISTRIBUTION WIDTH 16.3 % (9.6-15.2)
[2019-08-09 05:13] LABS: ALBUMIN 2.3 g/dL (3.4-5.0); ANION GAP 10 mmol/L (5-15); CALCIUM 7.4 mg/dL (8.5-10.1); CHLORIDE 109 mmol/L (98-107)
[2019-08-09 05:17] LABS: ALANINE AMINOTRANSFERASE 39 U/L (12-78); ALKALINE PHOSPHATASE 75 U/L (45-117); BILIRUBIN, DIRECT 4.7 mg/dL (0.1-0.2); BILIRUBIN,TOTAL 5.7 mg/dL (0.2-1.0); CREATININE 0.57 mg/dL (0.55-1.02); TOTAL PROTEIN 6.4 g/dL (6.4-8.2)
[2019-08-09] MEDS: PANTOPRAZOLE 40 MG IV IVPush SCH (05:36)
[2019-08-09 05:41] LABS: MD YES
[2019-08-09 05:43] LABS: BAND#(MANUAL) 1.82 x10^3/uL; BANDS%(MANUAL) 19 % (0-7); LYMPH#(MANUAL) 0.19 x10^3/uL (1-3.4); LYMPHS% (MANUAL) 2 % (22-44); MONOS#(MANUAL) 0.29 x10^3/uL (0.3-2.7); MONOS% (MANUAL) 3 % (2-9); SEGS% (MANUAL) 76 % (42-75)
[2019-08-09 05:44] LABS: ANISOCYTOSIS 1+
[2019-08-09 05:45] LABS: <PLATELET ESTIMATE> DECREASED; LARGE PLATELETS 1+
[2019-08-09 05:46] LABS: GIANT PLATELETS 1+
[2019-08-09 06:21] VITALS: BP 115/82
[2019-08-09] MEDS ORDERED: POTASSIUM CHLORIDE 10% 20 MEQ/15 ML UDC PO ONE (07:00)
[2019-08-09] MEDS: CEFTRIAXONE PMX 1GM/50ML 50 ML IV SCH (09:56)
[2019-08-09] MEDS: PROPYLTHIOURACIL 50 MG TABLET PO SCH ×2 (09:56→19:16)
[2019-08-09] MEDS: DILTIAZEM CD 180 MG CAP.ER.24H PO SCH (09:56)
[2019-08-09] MEDS: MULTIVITAMIN 1 TABLET PO SCH (09:56)
[2019-08-09] MEDS: SODIUM CHLORIDE FLUSH 10ML SYR IVF SCH ×2 (09:57→19:16)
[2019-08-09] MEDS ORDERED: POTASSIUM CHLORIDE 20 MEQ TAB.ER.PRT PO ONE (10:00)
[2019-08-09] MEDS ORDERED: FUROSEMIDE 40 MG/4 ML IV ONE (10:00)
[2019-08-09] MEDS ORDERED: INSULIN LISPRO 100 UNITS/ML, PEN SQ-INSULIN SCH (11:00)
[2019-08-09] MEDS: POTASSIUM CHLORIDE 20 MEQ, MAGNESIUM SULFATE 1 GM, THIAMINE 200 MG, FOLIC ACID 1 MG, MV... IV SCH (13:22)
[2019-08-09] MEDS: INSULIN LISPRO 100 UNITS/ML, PEN SQ-INSULIN SCH ×2 (17:00→22:34)
[2019-08-10] MEDS: MIDAZOLAM HCL 50 MG in SODIUM CHLORIDE 0.9% 40 ML IV PRN (01:08)
[2019-08-10] MEDS: PROPOFOL 100 ML IV PRN ×2 (01:08→05:12)
[2019-08-10] MEDS: ALBUTEROL/IPRATROPIUM 2.5MG/0.5MG, 3 ML INLINE SCH ×3 (02:50→10:31)
[2019-08-10 04:00] VITALS: BP 110/76
[2019-08-10] MEDS: INSULIN LISPRO 100 UNITS/ML, PEN SQ-INSULIN SCH ×4 (04:12→20:38)
[2019-08-10 04:32] LABS: ALANINE AMINOTRANSFERASE 40 U/L (12-78); ALBUMIN 2.3 g/dL (3.4-5.0); ANION GAP 6 mmol/L (5-15); BILIRUBIN, DIRECT 3.3 mg/dL (0.1-0.2); CALCIUM 7.3 mg/dL (8.5-10.1); CHLORIDE 109 mmol/L (98-107)
[2019-08-10 04:35] LABS: ALKALINE PHOSPHATASE 84 U/L (45-117); BILIRUBIN,INDIRECT 0.5 mg/dL (0.0-2.0); BILIRUBIN,TOTAL 3.8 mg/dL (0.2-1.0); CREATININE 0.63 mg/dL (0.55-1.02); TOTAL PROTEIN 6.3 g/dL (6.4-8.2); TRIGLYCERIDES 105 mg/dL (50-200)
[2019-08-10 04:47] LABS: MEAN CORPUSCULAR HEMOGLOBIN 34.6 pg (27.0-34.8); MEAN CORPUSCULAR HGB CONC 33.1 g/dL (32.4-35.8); MEAN CORPUSCULAR VOLUME 104.4 fL (80-100); MEAN PLATELET VOLUME 10.9 fL (7.4-10.4); PLATELET COUNT 77 x10^3/uL (130-400); RED BLOOD COUNT 3.08 x10^6/uL (3.82-5.3); RED CELL DISTRIBUTION WIDTH 16.5 % (9.6-15.2)
[2019-08-10 04:48] LABS: MD YES
[2019-08-10 04:55] LABS: BANDS%(MANUAL) 10 % (0-7); LYMPH#(MANUAL) 0.07 x10^3/uL (1-3.4); LYMPHS% (MANUAL) 1 % (22-44); MONOS#(MANUAL) 0.21 x10^3/uL (0.3-2.7); MONOS% (MANUAL) 3 % (2-9); NRBC % (MANUAL) 4 % (0-1); SEG#(MANUAL) 6.02 x10^3/uL (1.8-6.8); SEGS% (MANUAL) 86 % (42-75)
[2019-08-10 04:57] LABS: ANISOCYTOSIS 1+
[2019-08-10 04:58] LABS: <PLATELET ESTIMATE> DECREASED; LARGE PLATELETS 1+
[2019-08-10] MEDS: PANTOPRAZOLE 40 MG IV IVPush SCH (05:51)
[2019-08-10] MEDS: methylPREDNISolone SOD SUCC 125 MG/2 ML IVPush SCH (05:52)
[2019-08-10] MEDS ORDERED: POTASSIUM CHLORIDE 10% 40 MEQ/30 ML UDC PO ONE (06:30)
[2019-08-10] MEDS: SCOPOLAMINE 1MG PATCH TD SCH (08:39)
[2019-08-10] MEDS: PROPYLTHIOURACIL 50 MG TABLET PO SCH ×2 (08:39→20:37)
[2019-08-10] MEDS: MULTIVITAMIN 1 TABLET PO SCH (08:40)
[2019-08-10] MEDS: SODIUM CHLORIDE FLUSH 10ML SYR IVF SCH ×2 (08:40→20:37)
[2019-08-10] MEDS: DILTIAZEM CD 180 MG CAP.ER.24H PO SCH (08:40)
[2019-08-10] MEDS: CEFTRIAXONE PMX 1GM/50ML 50 ML IV SCH (10:21)
[2019-08-10] MEDS ORDERED: DIAZEPAM 5 MG TABLET PO SCH (12:00)
[2019-08-10] MEDS ORDERED: PHENOBARBITAL ETOH DETOX PER PHARMACY MC PRN (14:00)
[2019-08-10] MEDS ORDERED: SODIUM CHLORIDE 0.9% IV ONE ×2 (14:30→18:30)
[2019-08-10] MEDS: POTASSIUM CHLORIDE 20 MEQ, MAGNESIUM SULFATE 1 GM, THIAMINE 200 MG, FOLIC ACID 1 MG, MV... IV SCH (14:30)
[2019-08-10] MEDS ORDERED: PHENOBARBITAL SODIUM IV ONE ×2 (14:30→18:30)
[2019-08-10] MEDS: methylPREDNISolone SOD SUCC 40 MG/ML IVPush SCH (20:37)
[2019-08-10] MEDS: ACETAMINOPHEN 325 MG TABLET PO PRN (20:37)
[2019-08-11] MEDS: PHENOBARBITAL SODIUM 65 MG/ML, 1ML IM SCH ×2 (01:00→13:48)
[2019-08-11] MEDS ORDERED: PHENOBARBITAL SODIUM 130 MG/ML, 1ML IM SCH (01:00)
[2019-08-11 04:44] LABS: ANION GAP 8 mmol/L (5-15); CALCIUM 7.4 mg/dL (8.5-10.1); CHLORIDE 111 mmol/L (98-107)
[2019-08-11 05:21] LABS: MD YES
[2019-08-11 05:30] LABS: MEAN CORPUSCULAR HEMOGLOBIN 34.8 pg (27.0-34.8); MEAN CORPUSCULAR HGB CONC 32.5 g/dL (32.4-35.8); PLATELET COUNT 109 x10^3/uL (130-400); RED BLOOD COUNT 3.18 x10^6/uL (3.82-5.3); RED CELL DISTRIBUTION WIDTH 16.4 % (9.6-15.2)
[2019-08-11 05:33] LABS: BAND#(MANUAL) 0.23 x10^3/uL; BANDS%(MANUAL) 4 % (0-7); LYMPH#(MANUAL) 0.34 x10^3/uL (1-3.4); LYMPHS% (MANUAL) 6 % (22-44); MONOS#(MANUAL) 0.74 x10^3/uL (0.3-2.7); MONOS% (MANUAL) 13 % (2-9); MYELOCYTES# (MANUAL) 0.06 x10^3/uL (0-0); MYELOCYTES% (MANUAL) 1 % (0-0); SEG#(MANUAL) 4.33 x10^3/uL (1.8-6.8); SEGS% (MANUAL) 76 % (42-75)
[2019-08-11 05:34] LABS: <PLATELET ESTIMATE> DECREASED; ANISOCYTOSIS 1+; LARGE PLATELETS 1+; POLYCHROMASIA 1+
[2019-08-11] MEDS: PANTOPRAZOLE 40 MG IV IVPush SCH (06:38)
[2019-08-11] MEDS: MULTIVITAMIN 1 TABLET PO SCH (07:46)
[2019-08-11] MEDS: ACETAMINOPHEN 325 MG TABLET PO PRN ×2 (07:46→20:55)
[2019-08-11] MEDS: DILTIAZEM CD 180 MG CAP.ER.24H PO SCH (07:47)
[2019-08-11] MEDS: methylPREDNISolone SOD SUCC 40 MG/ML IVPush SCH ×2 (07:47→20:55)
[2019-08-11] MEDS: PROPYLTHIOURACIL 50 MG TABLET PO SCH ×2 (07:47→20:55)
[2019-08-11] MEDS: SODIUM CHLORIDE FLUSH 10ML SYR IVF SCH ×2 (07:50→20:38)
[2019-08-11] MEDS: INSULIN LISPRO 100 UNITS/ML, PEN SQ-INSULIN SCH ×4 (07:52→21:05)
[2019-08-11 12:30] VITALS: BP 162/84
[2019-08-11] MEDS: CEFTRIAXONE PMX 1GM/50ML 50 ML IV SCH (13:28)
[2019-08-11 14:22] LABS: CLOSTRIDIUM DIFFICILE ANTIGEN POSITIVE; CLOSTRIDIUM DIFFICILE TOXIN NEGATIVE (Negative)
[2019-08-11] MEDS ORDERED: POTASSIUM CHLORIDE 20 MEQ TAB.ER.PRT PO ONE (17:00)
[2019-08-11] MEDS ORDERED: FUROSEMIDE 40 MG/4 ML IV ONE (17:00)
[2019-08-11 20:33] VITALS: BP 152/90
[2019-08-12 00:48] VITALS: BP 157/89
[2019-08-12] MEDS: PHENOBARBITAL SODIUM 65 MG/ML, 1ML IM SCH ×2 (02:15→14:40)
[2019-08-12 04:59] VITALS: BP 169/85
[2019-08-12 05:09] LABS: ANION GAP 8 mmol/L (5-15); CALCIUM 7.5 mg/dL (8.5-10.1); CHLORIDE 103 mmol/L (98-107)
[2019-08-12 05:59] LABS: MEAN CORPUSCULAR HEMOGLOBIN 34.6 pg (27.0-34.8); MEAN CORPUSCULAR HGB CONC 32.8 g/dL (32.4-35.8); MEAN CORPUSCULAR VOLUME 105.4 fL (80-100); MEAN PLATELET VOLUME 11.2 fL (7.4-10.4); PLATELET COUNT 123 x10^3/uL (130-400)
[2019-08-12 06:00] LABS: BASOPHILS % (AUTO) 0 % (0-1); EOSINOPHILS # (AUTO) 0.03 x10^3/uL (0-0.4); EOSINOPHILS % (AUTO) 1 % (1-7); LYMPHOCYTES # (AUTO) 0.28 x10^3/uL (1-3.4); LYMPHOCYTES % (AUTO) 6 % (22-44); MD SCAN; MONOCYTES # (AUTO) 0.24 x10^3/uL (0.2-0.8); MONOCYTES % (AUTO) 5 % (2-9); NEUTROPHILS # (AUTO) 4.32 x10^3/uL (1.8-6.8); NEUTROPHILS % (AUTO) 89 % (42-75)
[2019-08-12] MEDS: PANTOPRAZOLE 40 MG IV IVPush SCH (06:01)
[2019-08-12] MEDS: INSULIN LISPRO 100 UNITS/ML, PEN SQ-INSULIN SCH ×4 (07:00→20:42)
[2019-08-12] MEDS: MULTIVITAMIN 1 TABLET PO SCH (08:42)
[2019-08-12] MEDS: DILTIAZEM CD 180 MG CAP.ER.24H PO SCH (08:43)
[2019-08-12] MEDS: methylPREDNISolone SOD SUCC 40 MG/ML IVPush SCH ×2 (08:43→20:41)
[2019-08-12] MEDS: SODIUM CHLORIDE FLUSH 10ML SYR IVF SCH ×2 (08:43→20:41)
[2019-08-12] MEDS: PROPYLTHIOURACIL 50 MG TABLET PO SCH ×2 (08:43→20:41)
[2019-08-12] MEDS: ACETAMINOPHEN 325 MG TABLET PO PRN ×2 (08:51→20:41)
[2019-08-12] MEDS: CEFTRIAXONE PMX 1GM/50ML 50 ML IV SCH (13:46)
[2019-08-12 14:48] VITALS: BP 121/81
[2019-08-12 20:10] VITALS: BP 113/74
[2019-08-13 00:49] VITALS: BP 159/88
[2019-08-13] MEDS ORDERED: PHENOBARBITAL 20 MG/5 ML ORAL SOL PO SCH (01:00)
[2019-08-13] MEDS: ACETAMINOPHEN 325 MG TABLET PO PRN (05:12)
[2019-08-13 05:38] LABS: MEAN CORPUSCULAR HGB CONC 32.6 g/dL (32.4-35.8); MEAN CORPUSCULAR VOLUME 104.3 fL (80-100); MEAN PLATELET VOLUME 11.6 fL (7.4-10.4); PLATELET COUNT 139 x10^3/uL (130-400); RED BLOOD COUNT 3.37 x10^6/uL (3.82-5.3)
[2019-08-13] MEDS ORDERED: PANTOPRAZOLE 40MG TABLET PO SCH (06:00)
[2019-08-13 06:08] LABS: BASOPHILS % (AUTO) 0 % (0-1); EOSINOPHILS # (AUTO) 0.06 x10^3/uL (0-0.4); EOSINOPHILS % (AUTO) 1 % (1-7); LYMPHOCYTES # (AUTO) 0.24 x10^3/uL (1-3.4); LYMPHOCYTES % (AUTO) 4 % (22-44); MD SCAN; MONOCYTES # (AUTO) 0.22 x10^3/uL (0.2-0.8); MONOCYTES % (AUTO) 4 % (2-9); NEUTROPHILS # (AUTO) 5.78 x10^3/uL (1.8-6.8); NEUTROPHILS % (AUTO) 92 % (42-75)
[2019-08-13] MEDS: INSULIN LISPRO 100 UNITS/ML, PEN SQ-INSULIN SCH (07:00)
[2019-08-13] MEDS: methylPREDNISolone SOD SUCC 40 MG/ML IVPush SCH (08:23)
[2019-08-13] MEDS: MULTIVITAMIN 1 TABLET PO SCH (08:23)
[2019-08-13] MEDS: DILTIAZEM CD 180 MG CAP.ER.24H PO SCH (08:23)
[2019-08-13] MEDS: PROPYLTHIOURACIL 50 MG TABLET PO SCH (08:23)
[2019-08-13] MEDS: SODIUM CHLORIDE FLUSH 10ML SYR IVF SCH (08:24)
[2019-08-13] MEDS: SCOPOLAMINE 1MG PATCH TD SCH (08:24)
[2019-08-13 09:10] VITALS: BP 145/77
[2019-08-13] MEDS ORDERED: PRED50TA PO (10:37)
[2019-08-15] MEDS ORDERED: PHENOBARBITAL 20 MG/5 ML ORAL SOL PO SCH (01:00)
[2019-08-16] MEDS ORDERED: PHENOBARBITAL 20 MG/5 ML ORAL SOL PO SCH (01:00)
== END 2019-08-13 10:53 | disposition left against medical advice (07) | DRG 871 ==
LOC: ED 22:57 → EDIP 23:18 → ICU 08-07 11:17 → CCU 08-09 20:40 → 4WST 08-11 12:09
PROVIDERS: ADMIT Family Medicine; ATTEND Internal Medicine
PROC: 02HV33Z Insertion of Infusion Device into Superior Vena Cava, Percutaneous Approach (ICD-10-PCS; 2019-08-06)
PROC: B548ZZA Ultrasonography of Superior Vena Cava, Guidance (ICD-10-PCS; 2019-08-06)
PROC: 5A1945Z Respiratory Ventilation, 24-96 Consecutive Hours (ICD-10-PCS; principal; 2019-08-07)
PROC: 0BH17EZ Insertion of Endotracheal Airway into Trachea, Via Natural or Artificial Opening (ICD-10-PCS; 2019-08-07)
DX: A41.9 Sepsis, unspecified organism (principal); R65.21 Severe sepsis with septic shock; J96.21 Acute and chronic respiratory failure with hypoxia; J13 Pneumonia due to Streptococcus pneumoniae; J44.1 Chronic obstructive pulmonary disease with (acute) exacerbation; J44.0 Chronic obstructive pulmonary disease with (acute) lower respiratory infection; E87.2 Acidosis; F10.239 Alcohol dependence with withdrawal, unspecified; D68.69 Other thrombophilia; I50.32 Chronic diastolic (congestive) heart failure; D69.6 Thrombocytopenia, unspecified; I48.0 Paroxysmal atrial fibrillation; E03.9 Hypothyroidism, unspecified; E05.90 Thyrotoxicosis, unspecified without thyrotoxic crisis or storm; E11.649 Type 2 diabetes mellitus with hypoglycemia without coma; E11.65 Type 2 diabetes mellitus with hyperglycemia; E83.42 Hypomagnesemia; E83.51 Hypocalcemia; E87.6 Hypokalemia; F17.200 Nicotine dependence, unspecified, uncomplicated; I11.0 Hypertensive heart disease with heart failure; K70.10 Alcoholic hepatitis without ascites; K80.20 Calculus of gallbladder without cholecystitis without obstruction; B19.20 Unspecified viral hepatitis C without hepatic coma; E87.5 Hyperkalemia; G89.29 Other chronic pain; M48.00 Spinal stenosis, site unspecified; M54.9 Dorsalgia, unspecified; T38.0X5A Adverse effect of glucocorticoids and synthetic analogues, initial encounter; Y95 Nosocomial condition; Z53.29 Procedure and treatment not carried out because of patient's decision for other reasons; Z20.828 Contact with and (suspected) exposure to other viral communicable diseases; Z79.01 Long term (current) use of anticoagulants; Z82.5 Family history of asthma and other chronic lower respiratory diseases; Z86.73 Personal history of transient ischemic attack (TIA), and cerebral infarction without residual deficits; Z90.710 Acquired absence of both cervix and uterus; Z91.14 Patient's other noncompliance with medication regimen; Z91.19 Patient's noncompliance with other medical treatment and regimen; Z79.899 Other long term (current) drug therapy
CPT/HCPCS: 36415; 36600; 71045; 76700; 80048; 80053; 80076; 80307; 82330; 82803; 82962; 83605; 83735; 83880; 84100; 84145; 84439; 84443; 84478; 84481; 84484; 85014; 85018; 85025; 85610; 87040; 87070; 87077; 87081; 87184; 87205; 87324; 93005; 94002; 94003; 94150; 94640; 99291; G0378; J0456; J0610; J0696; J1940; J2250; J2543; J2560; J2704; J3370; J3411; J3475; J3480; J7613; C9113; J0360; J1815; J2920; J2930; J7030; J7040; J7050; J7120; U0001-CS

== ENCOUNTER 2019-09-26 15:30 | Emergency (ER) | payer OTHER ==
[~2019-09-26] VITALS: Ht 165.1 cm; Wt 75.0 kg
[2019-09-26 15:33] VITALS: BP 111/70
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
--- NOTE | 2019-09-26 17:23 | NUR ---
Pt eloped to lobby prior to this RN interacting with pt. Mihir Hernandez RN facilitated pt with DC.
--- NOTE | 2019-09-26 17:25 | NUR ---
PT ELOPED. PT LEFT WITHOUT D/C PAPERWORK AND WAS SEEN AMBULATING WITH WALKER TO LOBBY.
== END 2019-09-26 17:28 | disposition left against medical advice (07) ==
LOC: ED 17:20
DX: F10.120 Alcohol abuse with intoxication, uncomplicated (principal); R07.89 Other chest pain; E11.9 Type 2 diabetes mellitus without complications; J44.9 Chronic obstructive pulmonary disease, unspecified; I48.91 Unspecified atrial fibrillation; I11.0 Hypertensive heart disease with heart failure; I50.9 Heart failure, unspecified; Y90.0 Blood alcohol level of less than 20 mg/100 ml
CPT/HCPCS: 99283

== ENCOUNTER 2019-09-26 23:13 | Emergency (ER) | payer OTHER ==
[2019-09-26 23:17] VITALS: BP 131/72
[2019-09-26 23:59] LABS: ALBUMIN 3.4 g/dL (3.4-5.0); ANION GAP 10 mmol/L (5-15); CALCIUM 7.8 mg/dL (8.5-10.1); CHLORIDE 112 mmol/L (98-107); CREATININE 0.48 mg/dL (0.55-1.02)
[2019-09-27 00:03] LABS: TROPONIN I < 0.015 ng/mL (0.000-0.045)
[2019-09-27 00:34] LABS: MEAN CORPUSCULAR HEMOGLOBIN 32.8 pg (27.0-34.8); MEAN CORPUSCULAR HGB CONC 33.1 g/dL (32.4-35.8); MEAN CORPUSCULAR VOLUME 99.2 fL (80-100); MEAN PLATELET VOLUME 8.8 fL (7.4-10.4); PLATELET COUNT 220 x10^3/uL (130-400); RED BLOOD COUNT 3.51 x10^6/uL (3.82-5.3); RED CELL DISTRIBUTION WIDTH 16.4 % (9.6-15.2)
[2019-09-27 00:51] LABS: BASOPHILS # (AUTO) 0.12 x10^3/uL (0-0.1); BASOPHILS % (AUTO) 3 % (0-1); EOSINOPHILS # (AUTO) 0.13 x10^3/uL (0-0.4); EOSINOPHILS % (AUTO) 4 % (1-7); LYMPHOCYTES # (AUTO) 1.47 x10^3/uL (1-3.4); LYMPHOCYTES % (AUTO) 40 % (22-44); MD SCAN; MONOCYTES # (AUTO) 0.28 x10^3/uL (0.2-0.8); MONOCYTES % (AUTO) 8 % (2-9); NEUTROPHILS # (AUTO) 1.65 x10^3/uL (1.8-6.8); NEUTROPHILS % (AUTO) 45 % (42-75)
== END 2019-09-27 00:53 | disposition home or self-care (01) ==
LOC: ED 23:45
DX: R06.00 Dyspnea, unspecified (principal); F10.120 Alcohol abuse with intoxication, uncomplicated; R07.89 Other chest pain; F17.210 Nicotine dependence, cigarettes, uncomplicated; I11.0 Hypertensive heart disease with heart failure; I50.9 Heart failure, unspecified; E11.9 Type 2 diabetes mellitus without complications; I48.91 Unspecified atrial fibrillation; Z90.710 Acquired absence of both cervix and uterus; Y90.9 Presence of alcohol in blood, level not specified
CPT/HCPCS: 36415; 71045; 80048; 82040; 83880; 84484; 85025; 93005; 99285; 99406

== ENCOUNTER 2019-09-27 12:15 | Emergency (ER) | payer OTHER ==
[~2019-09-27] VITALS: Ht 172.7 cm; Wt 71.0 kg
[2019-09-27 12:22] VITALS: BP 122/88
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
--- NOTE | 2019-09-27 14:34 | NUR ---
PT RESTING, VSS. TO BE DC SOON
--- NOTE | 2019-09-27 14:50 | NUR ---
PT AMBULATED W STEADY GAIT W WALKER
--- NOTE | 2019-09-27 14:51 | NUR ---
Patient/Caregiver given discharge instructions and they have confirmed that they understand the instructions. Patient ambulatory with steady gait.
== END 2019-09-27 15:10 | disposition home or self-care (01) ==
LOC: ED 14:48
DX: F10.220 Alcohol dependence with intoxication, uncomplicated (principal); J44.9 Chronic obstructive pulmonary disease, unspecified; E11.9 Type 2 diabetes mellitus without complications; I48.91 Unspecified atrial fibrillation; I11.0 Hypertensive heart disease with heart failure; I50.9 Heart failure, unspecified; F17.200 Nicotine dependence, unspecified, uncomplicated; Z90.710 Acquired absence of both cervix and uterus; Z99.81 Dependence on supplemental oxygen; Y90.9 Presence of alcohol in blood, level not specified
CPT/HCPCS: 99283

== ENCOUNTER 2019-10-04 12:18 | Emergency (ER) | payer OTHER ==
[~2019-10-04] VITALS: Ht 170.2 cm; Wt 80.0 kg
--- NOTE | 2019-10-04 13:28 | NUR ---
BREAK RN: PT SLEEPING ON DANIELAILYN. NADN. DIAZ.
--- NOTE | 2019-10-04 15:30 | NUR ---
PT STEADY GAIT TO BATHROOM READY FOR DC
[2019-10-04 15:51] VITALS: BP 140/82
--- NOTE | 2019-10-04 15:51 | NUR ---
Patient/Caregiver given discharge instructions and they have confirmed that they understand the instructions. Patient ambulatory with steady gait.
== END 2019-10-04 15:53 | disposition home or self-care (01) ==
LOC: ED 12:25
DX: F10.220 Alcohol dependence with intoxication, uncomplicated (principal); J44.9 Chronic obstructive pulmonary disease, unspecified; I48.91 Unspecified atrial fibrillation; I10 Essential (primary) hypertension; E87.5 Hyperkalemia; E05.90 Thyrotoxicosis, unspecified without thyrotoxic crisis or storm; Z72.9 Problem related to lifestyle, unspecified; Y90.0 Blood alcohol level of less than 20 mg/100 ml
CPT/HCPCS: 99283

== ENCOUNTER 2019-10-09 10:32 | Emergency (ER) | payer OTHER ==
[~2019-10-09] VITALS: Ht 172.7 cm; Wt 54.0 kg
[2019-10-09 10:44] VITALS: BP 124/74
--- NOTE | 2019-10-09 11:00 | NUR ---
BIB EMS FOR ETOH FROM HOME, REPORTS THAT SHE CANT WALK. PT ON CONT SPO2, BP Q 30 MIN. CALL LIGHT IN REACH. WARM BLANKETS GIVEN.
--- NOTE | 2019-10-09 13:30 | NUR ---
diet tray ordered
--- NOTE | 2019-10-09 14:45 | NUR ---
TASK RN: PT ATE ALL OF LUNCH TRAY, SPEAKING I FULL SENTENCES, FALL PRECAUTIONS IN PLACE.
[2019-10-10] MEDS ORDERED: POTASSIUM CHLORIDE PO (21:09)
== END 2019-10-09 15:03 | disposition home or self-care (01) ==
LOC: ED 10:42
DX: F10.220 Alcohol dependence with intoxication, uncomplicated (principal); J44.9 Chronic obstructive pulmonary disease, unspecified; I11.0 Hypertensive heart disease with heart failure; I50.9 Heart failure, unspecified; I48.91 Unspecified atrial fibrillation; E11.9 Type 2 diabetes mellitus without complications; Z86.39 Personal history of other endocrine, nutritional and metabolic disease; Y90.9 Presence of alcohol in blood, level not specified
CPT/HCPCS: 99283

== ENCOUNTER 2019-11-23 12:20 | Emergency (ER) | payer OTHER ==
[~2019-11-23] VITALS: Ht 170.2 cm; Wt 80.0 kg
[~2019-11-23 12:20] MED LIST changes: +ACID1TAB7 PO; +AMOX1TAB64 PO; -ENAL5TAB PO; +ENAL5TAB10 PO; +ESCI10TA PO; +HYDR50TA99 PO; -OXYC-432 PO; +OXYC1TAB18 PO; +POLY17PO5 PO; +POTASSIUM CHLORIDE PO; +SENN-193 PO; +TIOT18CA INH
--- NOTE | 2019-11-23 12:33 | NUR ---
PT BIB EMS FOR ETOH AND GLF TO HIP. PT IS INTOXICATED, SLURRING WORDS. STATES HER HIPS HURT. NO OBVIOUS INJURY OR DEFORMITY
--- NOTE | 2019-11-23 14:00 | NUR ---
PATIENT REFUSING TO CHANGE INTO GOWN FOR XRAY
--- NOTE | 2019-11-23 15:02 | NUR ---
PT REFUSED FURTHER CARE. AMBULATED W STEADY GAIT AND WALKER
[2019-11-23 15:03] VITALS: BP 119/85
== END 2019-11-23 15:04 ==
LOC: ED 12:46
DX: F10.220 Alcohol dependence with intoxication, uncomplicated (principal); M25.552 Pain in left hip; R94.31 Abnormal electrocardiogram [ECG] [EKG]; I10 Essential (primary) hypertension; E11.9 Type 2 diabetes mellitus without complications; J43.9 Emphysema, unspecified; I50.9 Heart failure, unspecified; I11.0 Hypertensive heart disease with heart failure; E05.90 Thyrotoxicosis, unspecified without thyrotoxic crisis or storm; Z90.710 Acquired absence of both cervix and uterus; Z79.899 Other long term (current) drug therapy; Y90.0 Blood alcohol level of less than 20 mg/100 ml
CPT/HCPCS: 93005; 99283

== ENCOUNTER 2019-11-23 20:24 | Emergency (ER) | payer OTHER ==
[~2019-11-23] VITALS: Ht 172.7 cm; Wt 70.0 kg
[2019-11-23 20:37] VITALS: BP 108/59
[2019-11-23] MEDS ORDERED: ACETAMINOPHEN 325 MG TABLET PO ONE (22:30)
[2019-11-23] MEDS ORDERED: ACETAMINOPHEN 500 MG TABLET PO ONE (22:30)
--- NOTE | 2019-11-23 23:00 | NUR ---
PT RESTING ON RACQUEL. ASKING FOR BLANKETS
--- NOTE | 2019-11-24 03:30 | NUR ---
TASK RN: PT RESTING ON RACQUEL MACKEY
--- NOTE | 2019-11-24 04:17 | NUR ---
PT AMBULATORY TO DC DESK WITH STEADY GAIT, AOX4, REQUESTING TAXI VOUCHER TO HOMELESS DETENTION.
== END 2019-11-24 04:20 | disposition home or self-care (01) ==
LOC: ED 20:54
DX: G89.29 Other chronic pain (principal); M54.5 Low back pain; F10.20 Alcohol dependence, uncomplicated; M25.561 Pain in right knee; M25.562 Pain in left knee; E11.9 Type 2 diabetes mellitus without complications; I48.91 Unspecified atrial fibrillation; J43.9 Emphysema, unspecified; E87.5 Hyperkalemia; E05.90 Thyrotoxicosis, unspecified without thyrotoxic crisis or storm; M19.90 Unspecified osteoarthritis, unspecified site; I50.9 Heart failure, unspecified; I11.0 Hypertensive heart disease with heart failure; Z72.9 Problem related to lifestyle, unspecified; Z90.710 Acquired absence of both cervix and uterus; W01.0XXA Fall on same level from slipping, tripping and stumbling without subsequent striking against object, initial encounter; Y93.01 Activity, walking, marching and hiking; Y92.89 Other specified places as the place of occurrence of the external cause; Y99.8 Other external cause status; Y90.0 Blood alcohol level of less than 20 mg/100 ml
CPT/HCPCS: 99283

== ENCOUNTER 2019-11-29 00:43 | Emergency (ER) | payer OTHER ==
[~2019-11-29] VITALS: Ht 172.7 cm; Wt 70.0 kg
[2019-11-29 00:50] VITALS: BP 92/56
--- NOTE | 2019-11-29 03:18 | NUR ---
infant and toddler teacher: patient walked away prior discharge.
== END 2019-11-29 03:23 | disposition home or self-care (01) ==
LOC: ED 03:10
DX: G89.11 Acute pain due to trauma (principal); M54.5 Low back pain; R00.0 Tachycardia, unspecified; E11.9 Type 2 diabetes mellitus without complications; I11.0 Hypertensive heart disease with heart failure; I50.9 Heart failure, unspecified; J44.9 Chronic obstructive pulmonary disease, unspecified; F17.200 Nicotine dependence, unspecified, uncomplicated; E87.5 Hyperkalemia; Z90.710 Acquired absence of both cervix and uterus; W01.0XXA Fall on same level from slipping, tripping and stumbling without subsequent striking against object, initial encounter; Y93.89 Activity, other specified; Y92.89 Other specified places as the place of occurrence of the external cause; Y99.8 Other external cause status
CPT/HCPCS: 72110; 93005; 99283

== ENCOUNTER 2019-11-29 07:38 | Emergency (ER) | payer OTHER ==
[~2019-11-29] VITALS: Ht 172.7 cm; Wt 70.0 kg
--- NOTE | 2019-11-29 07:50 | NUR ---
requested records from [facility].
--- NOTE | 2019-11-29 09:03 | NUR ---
pt shouting at this rn "i'm leaving, they didn't give me no pain meds" asked to sign ama form, refused. putting shoes on, was able to stand steady. law aware. as
--- NOTE | 2019-11-29 09:05 | NUR ---
when law was in room pt was undressed. no deformity noted. law moved leg, full rom bilat lower extrem. as
--- NOTE | 2019-11-29 09:10 | NUR ---
pt got herself back in bed. dressed herself. refusing to get back in gown. has blankets. law aware. pt saying " i need norco". awaiting records from [facility]. vss. as
--- NOTE | 2019-11-29 09:20 | NUR ---
2nd request to [facility] for records. [facility] request i re-fax to [phone].
--- NOTE | 2019-11-29 10:07 | NUR ---
planb labs/cxr. as
[2019-11-29 10:48] LABS: BASOPHILS % (AUTO) 1 % (0-1); EOSINOPHILS % (AUTO) 1 % (1-7); LYMPHOCYTES % (AUTO) 19 % (22-44); MEAN CORPUSCULAR HEMOGLOBIN 29.7 pg (27.0-34.8); MEAN CORPUSCULAR HGB CONC 32.4 g/dL (32.4-35.8); MEAN PLATELET VOLUME 9.1 fL (7.4-10.4); MONOCYTES % (AUTO) 10 % (2-9); NEUTROPHILS % (AUTO) 69 % (42-75); PLATELET COUNT 254 x10^3/uL (130-400); RED BLOOD COUNT 3.59 x10^6/uL (3.82-5.3); RED CELL DISTRIBUTION WIDTH 17.6 % (9.6-15.2)
--- NOTE | 2019-11-29 10:49 | NUR ---
CXR AT BEDSIDE. PT REFUSING TO COMPLETELY UNDRESS OR COMPLY.
[2019-11-29 10:51] LABS: MD NO
[2019-11-29 10:58] LABS: ALANINE AMINOTRANSFERASE 51 U/L (12-78); ALBUMIN 3.4 g/dL (3.4-5.0); ANION GAP 12 mmol/L (5-15); CALCIUM 9.4 mg/dL (8.5-10.1); CHLORIDE 106 mmol/L (98-107); CREATININE 1.04 mg/dL (0.55-1.02)
[2019-11-29 11:00] LABS: ALKALINE PHOSPHATASE 130 U/L (45-117); BILIRUBIN,TOTAL 0.8 mg/dL (0.2-1.0); TOTAL PROTEIN 7.6 g/dL (6.4-8.2)
--- NOTE | 2019-11-29 11:13 | NUR ---
RECEIVED REPORT FROM BALJINDER MONTEZ. [place] [facility] [facility].
--- NOTE | 2019-11-29 11:13 | NUR ---
REPORT TO VISHAL GALE.
[2019-11-29 11:22] VITALS: BP 114/83
--- NOTE | 2019-11-29 11:23 | NUR ---
PT SLEEPING ON RACQUEL. NADN. DIAZ.
[2019-11-29] MEDS ORDERED: ACETAMINOPHEN 500 MG TABLET ONE (12:08)
--- NOTE | 2019-11-29 12:15 | NUR ---
TASK RN: PT OOB INDEPENDENTLY, AMBULATES WITH WALKER. PT ASKING FOR TAXI VOUCHER "TO THE [employer] STORE" PT GIVEN VOUCHER TO THE [facility].
--- NOTE | 2019-11-29 12:17 | NUR ---
PT REFUSED TYLENOL, PT D/C WITH TAXI VOUCHER TO HOMELESS SKILLED NURSING. TO D/C AREA VIA WHEELCHAIR. PT HAS HER WALKR AND DEMONSTRATED USE W/O DIFFICULTY.
[2019-11-29] MEDS ORDERED: ACETAMINOPHEN 500 MG TABLET PO ONE (12:30)
== END 2019-11-29 12:18 | disposition home or self-care (01) ==
LOC: ED 08:04
DX: G31.2 Degeneration of nervous system due to alcohol (principal); M25.562 Pain in left knee; M25.561 Pain in right knee; R06.02 Shortness of breath; I11.0 Hypertensive heart disease with heart failure; J44.9 Chronic obstructive pulmonary disease, unspecified; I48.91 Unspecified atrial fibrillation; I50.9 Heart failure, unspecified; E05.90 Thyrotoxicosis, unspecified without thyrotoxic crisis or storm
CPT/HCPCS: 36415; 71045; 80053; 83605; 85025; 99284

== ENCOUNTER 2019-11-29 16:26 | Emergency (ER) | payer OTHER ==
[~2019-11-29] VITALS: Ht 172.7 cm; Wt 70.0 kg
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
--- NOTE | 2019-11-29 17:28 | NUR ---
PT TAKEN TO CT IN STABLE CONDITION.
--- NOTE | 2019-11-29 18:28 | NUR ---
PT SLEEPING ON RACQUEL. NADN. DIAZ.
--- NOTE | 2019-11-29 18:58 | NUR ---
REPORT GIVEN TO JERZY LAMAR RN.
--- NOTE | 2019-11-29 18:59 | NUR ---
REPORT OF PT FROM BALJINDER RODGERS. ALL QUESTIONS ANSWERED. PT ASLEEP IN [facility] AT THIS TIME;
[2019-11-29 19:45] VITALS: BP 134/89
--- NOTE | 2019-11-29 19:57 | NUR ---
PT D/C WITH D/C SUMMARY. PT AMBULATORY WITH A SLOW AND STEADY GAIT TO REGISTRATION DESK FOR D/C HOME. PIV DISCONTINUED WITH TIP INTACT. PT DENIES ANY OTHER NEEDS PERTAINING TO THIS VISIT.
== END 2019-11-29 20:04 | disposition home or self-care (01) ==
LOC: ED 17:01
DX: S30.1XXA Contusion of abdominal wall, initial encounter (principal); F10.229 Alcohol dependence with intoxication, unspecified; X58.XXXA Exposure to other specified factors, initial encounter; Y93.89 Activity, other specified; Y92.89 Other specified places as the place of occurrence of the external cause; Y99.8 Other external cause status; Y90.0 Blood alcohol level of less than 20 mg/100 ml
CPT/HCPCS: 71250; 99284

== ENCOUNTER 2019-12-04 18:32 | Emergency (ER) | payer OTHER ==
[~2019-12-04] VITALS: Ht 172.7 cm; Wt 70.0 kg
[2019-12-04 18:36] VITALS: BP 113/68
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
--- NOTE | 2019-12-04 19:10 | NUR ---
PT DENIES WRIST PAIN, NO OBVIOUS TRAUMA NOTED ON HEAD.
[2019-12-04] MEDS ORDERED: DIPH,PERTUSS(ACELL),TET VAC/PF 0.5 ML IM-VACC ONE ×2 (19:13→19:30)
== END 2019-12-04 20:03 | disposition home or self-care (01) ==
LOC: ED 19:33
DX: S51.851A Open bite of right forearm, initial encounter (principal); S00.03XA Contusion of scalp, initial encounter; S60.211A Contusion of right wrist, initial encounter; F10.20 Alcohol dependence, uncomplicated; Y90.0 Blood alcohol level of less than 20 mg/100 ml; I11.0 Hypertensive heart disease with heart failure; I50.9 Heart failure, unspecified; I48.91 Unspecified atrial fibrillation; J43.9 Emphysema, unspecified; F17.200 Nicotine dependence, unspecified, uncomplicated; Z90.710 Acquired absence of both cervix and uterus; Y04.8XXA Assault by other bodily force, initial encounter; Y93.89 Activity, other specified; Y92.009 Unspecified place in unspecified non-institutional (private) residence as the place of occurrence of the external cause; Y99.8 Other external cause status
CPT/HCPCS: 90471; 90715; 99283

== ENCOUNTER 2019-12-16 19:03 | Emergency (ER) | payer OTHER ==
[~2019-12-16] VITALS: Ht 172.7 cm; Wt 68.0 kg
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
--- NOTE | 2019-12-17 01:03 | NUR ---
Patient arousable; not able to maintain a steady gait at this time.
[2019-12-17 02:58] VITALS: BP 128/74
--- NOTE | 2019-12-17 03:05 | NUR ---
Patient awake and ambulatory with a steady gait. Discharge instructions given. All questions and concerns addressed. Belongings with patient.
== END 2019-12-17 03:08 | disposition home or self-care (01) ==
LOC: ED 22:01
DX: F10.120 Alcohol abuse with intoxication, uncomplicated (principal); Z72.9 Problem related to lifestyle, unspecified; Y90.9 Presence of alcohol in blood, level not specified
CPT/HCPCS: 99283

== ENCOUNTER 2019-12-25 05:08 | Emergency (ER) | payer OTHER ==
[~2019-12-25] VITALS: Ht 172.7 cm; Wt 65.0 kg
--- NOTE | 2019-12-25 06:10 | NUR ---
AMILCAR. Pt intoxicated upon arrival. Refuses to answer most of this RN's questions. Flo noted. States, "just leave me alone, I'm not answering any of your questions." Agreeable to VS. VSS. Refuses tele, agreeable to continuous O2 monitoring. No s/sx acute distress
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
--- NOTE | 2019-12-25 07:21 | NUR ---
REPORT RECEIVED FROM GAVI GALE. PT SLEEPING ON GURNEY W/ CALL LIGHT IN REACH AND SIDE RAILS UPX2. RESP EVEN AND UNLABORED, NADN. PT AROUSABLE TO VOICE. VSS, O2 TITRATED DOWN TO 3L AT THIS TIME. WILL CONTINUE TO MONITOR.
--- NOTE | 2019-12-25 07:21 | NUR ---
Triage note written on wrong patient by this RN
[2019-12-25 08:29] VITALS: BP 117/69
--- NOTE | 2019-12-25 08:30 | NUR ---
PT SLEEPING ON GURNEY W/ CALL LIGHT IN REACH AND SIDE RAILS UPX2. RESP EVEN AND UNLABORED, NADN. PT AROUSABLE TO VOICE. VSS, O2 TITRATED DOWN TO 2L AT THIS TIME. WILL CONTINUE TO MONITOR.
--- NOTE | 2019-12-25 08:54 | NUR ---
Patient given discharge instructions and they have confirmed that they understand the instructions. Patient ambulatory with steady gait using walker. While walking to DC desk, pt pushed walker away and stated that she didn't need. Ambulated independently w/ a steady gait. Resp even and unlabored, shaina. Taxi voucher provided.
== END 2019-12-25 09:02 | disposition home or self-care (01) ==
LOC: ED 05:20
DX: F10.129 Alcohol abuse with intoxication, unspecified (principal); Z72.9 Problem related to lifestyle, unspecified; J45.909 Unspecified asthma, uncomplicated; I48.91 Unspecified atrial fibrillation; Y90.9 Presence of alcohol in blood, level not specified
CPT/HCPCS: 99283

== ENCOUNTER 2019-12-25 11:56 | Emergency (ER) | payer OTHER ==
[~2019-12-25] VITALS: Ht 175.3 cm; Wt 70.0 kg
[2019-12-25 12:37] LABS: MEAN CORPUSCULAR HEMOGLOBIN 30.1 pg (27.0-34.8); MEAN CORPUSCULAR HGB CONC 32.2 g/dL (32.4-35.8); MEAN PLATELET VOLUME 9.5 fL (7.4-10.4); PLATELET COUNT 128 x10^3/uL (130-400); RED BLOOD COUNT 3.47 x10^6/uL (3.82-5.3); RED CELL DISTRIBUTION WIDTH 19.1 % (9.6-15.2)
[2019-12-25 12:49] LABS: ALBUMIN 2.8 g/dL (3.4-5.0); ANION GAP 9 mmol/L (5-15); CALCIUM 7.6 mg/dL (8.5-10.1); CHLORIDE 112 mmol/L (98-107)
[2019-12-25 12:55] LABS: ALANINE AMINOTRANSFERASE 37 U/L (12-78); ALKALINE PHOSPHATASE 108 U/L (45-117); BILIRUBIN,TOTAL 0.5 mg/dL (0.2-1.0); CREATININE 0.57 mg/dL (0.55-1.02); TOTAL PROTEIN 6.8 g/dL (6.4-8.2)
[2019-12-25] MEDS ORDERED: D5%-0.45NACL+KCL 40MEQ 1,000 ML IV SCH (13:00)
[2019-12-25] MEDS ORDERED: POTASSIUM CHLORIDE 20 MEQ TAB.ER.PRT PO ONE (13:00)
--- NOTE | 2019-12-25 13:10 | NUR ---
PT SITTING UPRIGHT ON GURNEY WITH EYES CLOSED. CALM AND COOPERATIVE. PT DENIES ANY NEEDS AT THIS TIME. WILL CONTINUE TO MONITOR. CALL LIGHT WITHIN REACH.
[2019-12-25 13:14] VITALS: BP 93/66
[2019-12-25 13:29] LABS: MD YES
[2019-12-25] MEDS ORDERED: THIAMINE 200 MG in SODIUM CHLORIDE 0.9% 50 ML IV ONE (13:30)
[2019-12-25] MEDS ORDERED: MAGNESIUM SULFATE PMX 2GM/50ML 50 ML IV ONE (13:30)
[2019-12-25] MEDS ORDERED: THIAMINE 100 MG/ML, 2ML ONE (13:33)
[2019-12-25 13:34] LABS: BASOS#(MANUAL) 0.02 x10^3/uL (0-0.1); BASOS% (MANUAL) 1 % (0-1); EOS#(MANUAL) 0.21 x10^3/uL (0.0-0.4); EOS% (MANUAL) 9 % (1-7); LYMPH#(MANUAL) 0.97 x10^3/uL (1-3.4); LYMPHS% (MANUAL) 42 % (22-44); MONOS#(MANUAL) 0.35 x10^3/uL (0.3-2.7); MONOS% (MANUAL) 15 % (2-9); SEG#(MANUAL) 0.76 x10^3/uL (1.8-6.8); SEGS% (MANUAL) 33 % (42-75)
[2019-12-25 13:36] LABS: ANISOCYTOSIS 1+; HYPOCHROMIA 1+; OVALOCYTES 1+
[2019-12-25 13:37] LABS: <PLATELET ESTIMATE> DECREASED; <PLT MORPHOLOGY> NORMAL PLT MORPH
[2019-12-25] MEDS ORDERED: MAGNESIUM SULFATE PMX 2GM/50ML 50 ML ONE (13:49)
--- NOTE | 2019-12-25 14:30 | NUR ---
PT SITTING IN [place] YELLING "I NEED TO GET OUT OF HERE AND GO GET A BLOODY DESIRE AT THE [facility], IM LEAVING. IM GONNA AND I DONT CARE!". PT PROCEEDED TO PULL OUT BOTH PIV'S. ERP AWARE. PT UP WITH PERSONAL WALKER AND STEADY GAIT TO LOBBY. PT EDUCATED ON LEAVING AGAINST MEDICAL ADVICE. PT LEFT WITH $1154 IN HER POCKET.
== END 2019-12-25 14:55 | disposition left against medical advice (07) ==
LOC: ED 13:45
DX: F10.220 Alcohol dependence with intoxication, uncomplicated (principal); E87.6 Hypokalemia; E83.42 Hypomagnesemia; I48.91 Unspecified atrial fibrillation; J45.909 Unspecified asthma, uncomplicated; I10 Essential (primary) hypertension; Z90.710 Acquired absence of both cervix and uterus; Y90.9 Presence of alcohol in blood, level not specified
CPT/HCPCS: 36415; 80053; 80307; 83735; 85025; 93005; 96365; 96368; 99284; J3411; J3475; J3480

== ENCOUNTER 2019-12-25 16:14 | Emergency (ER) | payer OTHER ==
[~2019-12-25] VITALS: Ht 175.3 cm; Wt 70.0 kg
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
[2019-12-25 17:12] VITALS: BP 109/69
--- NOTE | 2019-12-25 17:44 | NUR ---
PT GIVEN MEAL TRAY
--- NOTE | 2019-12-25 19:40 | NUR ---
PT AMBULATED OUT WITH STEADY GAIT. GIVEN TAXI VOUCHER
== END 2019-12-25 19:41 | disposition home or self-care (01) ==
LOC: ED 17:42
DX: F10.220 Alcohol dependence with intoxication, uncomplicated (principal); J44.9 Chronic obstructive pulmonary disease, unspecified; I11.0 Hypertensive heart disease with heart failure; I50.9 Heart failure, unspecified; I48.91 Unspecified atrial fibrillation; Z90.710 Acquired absence of both cervix and uterus; E11.9 Type 2 diabetes mellitus without complications; Y90.9 Presence of alcohol in blood, level not specified
CPT/HCPCS: 99283

== ENCOUNTER 2019-12-25 23:59 | Emergency (ER) | payer OTHER ==
[~2019-12-25] VITALS: Ht 172.7 cm; Wt 77.9 kg
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
--- NOTE | 2019-12-26 01:00 | NUR ---
PT SLEEPING. NO NEEDS
--- NOTE | 2019-12-26 02:00 | NUR ---
PT SLEEPING, NO NEEDS. CALL LIGHT IN REACH
--- NOTE | 2019-12-26 02:58 | NUR ---
PT SLEEPING. NO NEEDS
[2019-12-26 04:11] VITALS: BP 118/73
== END 2019-12-26 04:13 | disposition home or self-care (01) ==
LOC: ED 12-26 00:45
DX: F10.220 Alcohol dependence with intoxication, uncomplicated (principal); Z72.9 Problem related to lifestyle, unspecified; J44.9 Chronic obstructive pulmonary disease, unspecified; I11.0 Hypertensive heart disease with heart failure; I50.9 Heart failure, unspecified; E11.9 Type 2 diabetes mellitus without complications; I48.91 Unspecified atrial fibrillation; Z90.710 Acquired absence of both cervix and uterus; Z86.39 Personal history of other endocrine, nutritional and metabolic disease; Y90.9 Presence of alcohol in blood, level not specified
CPT/HCPCS: 99283

== ENCOUNTER 2019-12-26 12:02 | Emergency (ER) | payer OTHER ==
[~2019-12-26] VITALS: Ht 167.6 cm; Wt 70.0 kg
--- NOTE | 2019-12-26 13:20 | NUR ---
PT STILL SOMULENT, AROUSES TO [PAINFUL STIMULI, WILL REASSESS FOR READINESS TO D/C
--- NOTE | 2019-12-26 15:33 | NUR ---
FLOAT RN AT BEDSIDE. PT RESPONDS TO VERBAL STIMULI. ATTEMPTED TO AMBULATE PT. UNSTEADY WHEN STANDING AT EDGE OF BED. UNABLE TO AMBULATE AT THIS TIME. PT'S VSS. WILL CONTINUE TO MONITOR. NOTIFIED PRIMARY RNTADEO.
[2019-12-26 15:34] VITALS: BP 120/71
--- NOTE | 2019-12-26 16:11 | NUR ---
PT AMBULATES IN HALLWAY WITH STEADY GAIT. A&OX4. NAD. TO BE DC
== END 2019-12-26 16:34 | disposition home or self-care (01) ==
LOC: ED 13:26
DX: S63.521A Sprain of radiocarpal joint of right wrist, initial encounter (principal); F10.220 Alcohol dependence with intoxication, uncomplicated; I10 Essential (primary) hypertension; I48.91 Unspecified atrial fibrillation; E11.9 Type 2 diabetes mellitus without complications; J44.9 Chronic obstructive pulmonary disease, unspecified; Z90.710 Acquired absence of both cervix and uterus; Y90.9 Presence of alcohol in blood, level not specified; X58.XXXA Exposure to other specified factors, initial encounter; Y93.89 Activity, other specified; Y92.89 Other specified places as the place of occurrence of the external cause; Y99.8 Other external cause status
CPT/HCPCS: 99283

== ENCOUNTER 2020-01-03 05:10 | Emergency (ER) | payer OTHER ==
[~2020-01-03] VITALS: Ht 165.1 cm; Wt 68.0 kg
[2020-01-03 05:26] VITALS: BP 128/75
== END 2020-01-03 06:06 | disposition home or self-care (01) ==
LOC: ED 05:40
DX: F10.220 Alcohol dependence with intoxication, uncomplicated (principal); E11.9 Type 2 diabetes mellitus without complications; I48.91 Unspecified atrial fibrillation; I50.9 Heart failure, unspecified; I11.0 Hypertensive heart disease with heart failure; J43.9 Emphysema, unspecified; E83.42 Hypomagnesemia; E87.5 Hyperkalemia; E87.6 Hypokalemia; E05.90 Thyrotoxicosis, unspecified without thyrotoxic crisis or storm; Z90.710 Acquired absence of both cervix and uterus; Y90.0 Blood alcohol level of less than 20 mg/100 ml
CPT/HCPCS: 99283

== ENCOUNTER 2020-01-09 19:34 | Emergency (ER) | payer OTHER ==
[~2020-01-09] VITALS: Ht 167.6 cm; Wt 70.0 kg
[2020-01-09 19:35] VITALS: BP 123/86
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
--- NOTE | 2020-01-09 20:19 | NUR ---
BULWARK CARPENTER: PT. SHOUTING AT STAFF. "YOU ARE ALL JUST NIGGERS". PT. AMBULATORY OUT OF ED. PT. ABLE TO MAINTAIN OWN BODY WEIGHT. PT. DENIES ANY MEDICAL COMPLAINTS.
== END 2020-01-09 20:22 | disposition left against medical advice (07) ==
LOC: ED 20:00
DX: F10.129 Alcohol abuse with intoxication, unspecified (principal); Y90.9 Presence of alcohol in blood, level not specified; Z53.21 Procedure and treatment not carried out due to patient leaving prior to being seen by health care provider
CPT/HCPCS: 96374; 96375; 99283

== ENCOUNTER 2020-02-28 03:25 | Emergency (ER) | payer OTHER ==
[~2020-02-28] VITALS: Ht 172.7 cm; Wt 75.0 kg
[~2020-02-28 03:25] MED LIST changes: -ESCI10TA PO; +ESCI10TA5 PO; -NICO-487 TD; +NICO-587 TD
--- NOTE | 2020-02-28 03:25 | NUR ---
INITIAL PT CONTACT. PT JENYA C/O LEFT HIP PAIN "AFTER FALLING OUT OF BED 2 DAYS AGO". PER EMS PT WAS ABLE TO WALK FROM APARTMENT WITH USE OF PERSONAL WALKER, DOWN ELEVATOR AND TO EMS GURNEY. PT SITTING UPRIGHT ON GURNEY, NAD, VSS. PT DENIES NEEDS AT THIS TIME. CALL LIGHT WITHIN REACH.
[2020-02-28 03:26] VITALS: BP 139/90
--- NOTE | 2020-02-28 03:41 | NUR ---
PT TO IMAGING
--- NOTE | 2020-02-28 04:08 | NUR ---
PT SITTING UPRIGHT ON GURNEY, CALL LIGHT PRESSED "I DRINK A LOT AND IM GETTING SHAKEY, CAN I HAVE SOMETHING FOR THAT?" ERP NOTIFIED.
[2020-02-28] MEDS ORDERED: LORazepam 0.5MG TABLET PO ONE (04:30)
--- NOTE | 2020-02-28 04:58 | NUR ---
PT SITTING SUPINE ON GURAILYN, NAD, VSS. PT PROVIDED WARM BLANKET, NO ADDITIONAL NEEDS AT THIS TIME. CALL LIGHT AND PERSONAL BELONGINGS WITHIN REACH.
[2020-02-28] MEDS ORDERED: LORazepam 0.5MG TABLET ONE (05:18)
--- NOTE | 2020-02-28 05:37 | NUR ---
Patient given discharge instructions and they have confirmed that they understand the instructions. Patient ambulatory with steady gait.
== END 2020-02-28 05:43 | disposition home or self-care (01) ==
LOC: ED 03:40
DX: S09.90XA Unspecified injury of head, initial encounter (principal); G89.11 Acute pain due to trauma; F10.220 Alcohol dependence with intoxication, uncomplicated; M25.552 Pain in left hip; R10.9 Unspecified abdominal pain; E11.9 Type 2 diabetes mellitus without complications; J44.9 Chronic obstructive pulmonary disease, unspecified; I50.9 Heart failure, unspecified; I11.0 Hypertensive heart disease with heart failure; M19.90 Unspecified osteoarthritis, unspecified site; E05.90 Thyrotoxicosis, unspecified without thyrotoxic crisis or storm; F17.210 Nicotine dependence, cigarettes, uncomplicated; Z72.9 Problem related to lifestyle, unspecified; Z90.710 Acquired absence of both cervix and uterus; Y90.0 Blood alcohol level of less than 20 mg/100 ml
CPT/HCPCS: 70450; 99284; 99406

== ENCOUNTER 2020-05-07 19:30 | Emergency (ER) | payer OTHER ==
[~2020-05-07] VITALS: Ht 172.7 cm; Wt 68.0 kg
[~2020-05-07 19:30] MED LIST changes: -ESCI10TA5 PO; +ESCI10TA97 PO; -FOLI-17 PO; +FOLI1TAB32 PO; +METH-640 PO; -METH750T2 PO
[2020-05-07] MEDS ORDERED: THIAMINE 100MG TABLET ONE (19:56)
[2020-05-07] MEDS ORDERED: SODIUM CHLORIDE FLUSH 10ML SYR IVF ONE (20:00)
[2020-05-07] MEDS ORDERED: THIAMINE 100MG TABLET PO ONE (20:00)
[2020-05-07] MEDS ORDERED: SODIUM CHLORIDE 0.9% 1,000ML IVBOLUS ONE ×2 (20:00→21:30)
--- NOTE | 2020-05-07 20:29 | NUR ---
BIBA AFTER BEING FOUND DOWN DUE TO ETOH. PT UNABLE TO WALK. PT ALERT AND ORIENTED, KEEPS REPEATING "I NEED TO GO TO [facility]".
--- NOTE | 2020-05-07 21:53 | NUR ---
BREAK RN: 2ND L OF FLUIDS RUNNING. PT SLEEPING IN NAD. VSS. CALL LIGHT IN REACH
--- NOTE | 2020-05-07 22:22 | NUR ---
pt placed on bed carr, states she can't walk yet
[2020-05-07 22:47] LABS: BASOPHILS % (AUTO) 2 % (0-1); EOSINOPHILS % (AUTO) 3 % (1-7); LYMPHOCYTES % (AUTO) 34 % (22-44); MEAN CORPUSCULAR HEMOGLOBIN 31.2 pg (27.0-34.8); MEAN CORPUSCULAR HGB CONC 33.6 g/dL (32.4-35.8); MEAN PLATELET VOLUME 8.5 fL (7.4-10.4); MONOCYTES % (AUTO) 6 % (2-9); NEUTROPHILS % (AUTO) 56 % (42-75); PLATELET COUNT 179 x10^3/uL (130-400); RED BLOOD COUNT 4.52 x10^6/uL (3.82-5.3); RED CELL DISTRIBUTION WIDTH 13.2 % (9.6-15.2)
[2020-05-07 22:48] LABS: MD NO
--- NOTE | 2020-05-07 22:50 | NUR ---
visitor at bedside
[2020-05-07 22:58] LABS: ALANINE AMINOTRANSFERASE 41 U/L (12-78); ALBUMIN 3.4 g/dL (3.4-5.0); ANION GAP 6 mmol/L (5-15); CALCIUM 8.6 mg/dL (8.5-10.1); CHLORIDE 112 mmol/L (98-107)
[2020-05-07 23:03] LABS: ALKALINE PHOSPHATASE 93 U/L (45-117); BILIRUBIN,TOTAL 0.7 mg/dL (0.2-1.0); TOTAL PROTEIN 7.4 g/dL (6.4-8.2); TROPONIN I < 0.015 ng/mL (0.000-0.045)
--- NOTE | 2020-05-08 01:11 | NUR ---
pt dc with all personal belongings and her personal walker. pt ambulatory to dc desk. cab voucher given to hotel per pts request.
[2020-05-08 01:14] VITALS: BP 94/64
== END 2020-05-08 01:15 | disposition home or self-care (01) ==
LOC: ED 21:42
DX: F10.220 Alcohol dependence with intoxication, uncomplicated (principal); E11.9 Type 2 diabetes mellitus without complications; M19.90 Unspecified osteoarthritis, unspecified site; I48.91 Unspecified atrial fibrillation; I11.0 Hypertensive heart disease with heart failure; I50.9 Heart failure, unspecified; E83.42 Hypomagnesemia; E05.90 Thyrotoxicosis, unspecified without thyrotoxic crisis or storm; E87.5 Hyperkalemia; J43.9 Emphysema, unspecified; Z72.9 Problem related to lifestyle, unspecified; Y90.0 Blood alcohol level of less than 20 mg/100 ml
CPT/HCPCS: 36415; 71045; 80053; 83690; 84484; 85025; 93005; 96360; 96361; 99285; J7030

== ENCOUNTER 2020-05-11 03:01 | Emergency (ER) | payer OTHER ==
[~2020-05-11] VITALS: Ht 170.2 cm; Wt 69.3 kg
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
[2020-05-11] MEDS ORDERED: IBUPROFEN 600 MG TABLET PO ONE (03:30)
[2020-05-11] MEDS ORDERED: IBUPROFEN 600 MG TABLET ONE (03:30)
[2020-05-11 04:01] VITALS: BP 120/78
--- NOTE | 2020-05-11 04:02 | NUR ---
PT RESTING ON GURNEY, NAD, APPEARS SLIGHTLY MORE COMFORTABLE, VSS, WCTM. WAITING FOR RAD READ
--- NOTE | 2020-05-11 04:21 | NUR ---
PT RESTING ON [place], PROVIDED ICE PACKS AND ADDITIONAL BLANKETS FOR COMFORT, VSS ,WCTM.
--- NOTE | 2020-05-11 05:06 | NUR ---
PT given discharge instructions and they have confirmed that they understand the instructions. Patient ambulatory with steady gait. NAD, DENIES ADDITIONAL QUESTIONS OR NEEDS, PAIN DECREASED, VSS, NO PERSONAL BELONGINGS LEFT IN ROOM AFTER DC. PROVIDED VOUCHER TO GET HOME.
== END 2020-05-11 05:07 | disposition home or self-care (01) ==
LOC: ED 05:04
DX: G89.21 Chronic pain due to trauma (principal); M25.511 Pain in right shoulder; M25.561 Pain in right knee; J44.9 Chronic obstructive pulmonary disease, unspecified; I10 Essential (primary) hypertension; W01.0XXA Fall on same level from slipping, tripping and stumbling without subsequent striking against object, initial encounter; Y93.89 Activity, other specified; Y92.410 Unspecified street and highway as the place of occurrence of the external cause; Y99.8 Other external cause status
CPT/HCPCS: 99284